=== PATIENT | female | born 1985 | race Caucasian/White ===

== ENCOUNTER 2019-05-22 04:40 | Inpatient (IN) | payer MEDICAID ==
[~2019-05-22] VITALS: Ht 167.6 cm; Wt 47.1 kg
[2019-05-22] MEDS ORDERED: ONDANSETRON 4 MG INJ IV STA (05:20)
[2019-05-22] MEDS ORDERED: morphine 4 MG/ML VIAL IV STA (05:20)
[2019-05-22] MEDS ORDERED: IOHEXOL 100 ML ONE (09:49)
[2019-05-22] MEDS ORDERED: SOD CHLORIDE 0.9% 100 ML ONE (09:49)
[2019-05-22] MEDS ORDERED: GABA300C16 PO (10:29)
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
[2019-05-22] MEDS ORDERED: LORAZEPAM 2 MG INJ IV ONE (12:30)
[2019-05-22] MEDS ORDERED: ONDANSETRON 4 MG INJ IV PRN ×2 (13:30→14:00)
[2019-05-22] MEDS ORDERED: ACETAMINOPHEN 325 MG TAB PO PRN (13:30)
--- NOTE | 2019-05-22 13:53 | HP ---
Date/Time of Note Date/Time of Note DATE: 05/22/19 TIME: 13:53 Assessment/Plan VTE Prophylaxis Pharmacological prophylaxis: NA/contraindicated Pharm contraindication: low risk/ambulating Lines/Catheters [facility] Saline Lock Assessment/Plan Hospital Course 33-year-old female with no significant past medical history who came to the emergency room with chief complaint of abdominal pain with imaging study suggesting superior mesenteric artery syndrome, who will be admitted to inpatient setting for further treatment and evaluation. 1. Abdominal pain. Abdominal imaging suggesting superior mesenteric artery syndrome with distention of the stomach and proximal duodenum with abrupt transition point at the second portion of the duodenum. N.p.o. NGT decompression. General surgery consult has been obtained. Start TPN as per general surgery recommendations. The patient to be taken to the OR in the next few days after NGT decompression. 2. Moderate protein calorie malnutrition. Start the patient on TPN after inserting a central line. Plan: The patient will be admitted to inpatient medical surgical floor. The patient will be kept n.p.o. The patient will be started on DVT prophylaxis. The patient will remain a full code. Activities will be as tolerated. The rest of the patient's management will be based on the clinical course, inputs from consultants, and the results of diagnostic studies. Based on the patient's clinical presentation, she most probably requires more than 2 midnights' stay for further management and evaluation of her clinical presentation. The patient was seen in collaboration with Dr. Albarran. The case was discussed with the surgeon. Result Diagram: 05/22/19 0509 05/22/19 0509 Results 24hrs Laboratory Tests Test 05/22/19 05:09 05/22/19 08:00 05/22/19 08:12 White Blood Count 7.7 Red Blood Count 4.75 Hemoglobin 13.7 Hematocrit 39.8 Mean Corpuscular Volume 83.8 Mean Corpuscular Hemoglobin 28.8 L Mean Corpuscular Hemoglobin Concent 34.4 Red Cell Distribution Width 12.4 Platelet Count 378 Mean Platelet Volume 9.9 Immature Granulocytes % 0.100 Neutrophils % 44.3 Lymphocytes % 37.5 Monocytes % 9.5 Eosinophils % 7.4 H Basophils % 1.2 Nucleated Red Blood Cells % 0.0 Immature Granulocytes # 0.010 Neutrophils # 3.4 Lymphocytes # 2.9 Monocytes # 0.7 Eosinophils # 0.6 H Basophils # 0.1 Nucleated Red Blood Cells # 0.0 Sodium Level 146 H Potassium Level 3.8 Chloride Level 105 Carbon Dioxide Level 27 Anion Gap 14 H Blood Urea Nitrogen 15 Creatinine 0.81 Est Glomerular Filtrat Rate mL/min > 60 Glucose Level 140 Calcium Level 10.1 Total Bilirubin 1.2 Direct Bilirubin 0.00 Indirect Bilirubin 1.2 H Aspartate Amino Transf (AST/SGOT) 25 Alanine Aminotransferase (ALT/SGPT) 20 Alkaline Phosphatase 76 Total Protein 8.7 H Albumin 5.0 H Globulin 3.70 H Albumin/Globulin Ratio 1.35 Lipase 331 H Urine Color YELLOW Urine Clarity CLOUDY A Urine pH 8.0 Urine Specific [place] 1.025 Urine Ketones TRACE A Urine Nitrite NEGATIVE Urine Bilirubin NEGATIVE Urine Urobilinogen NEGATIVE Urine Leukocyte Esterase NEGATIVE Urine Microscopic RBC 2 Urine Microscopic WBC 0 Urine Squamous Epithelial Cells FEW Urine Amorphous Crystals FEW A Urine Mucus MODERATE Urine Hemoglobin NEGATIVE Urine Glucose NEGATIVE Urine Total Protein 1+ H POC Beta HCG, Qualitative NEGATIVE HPI/ROS Admit Date/Time Admit Date/Time Hx of Present Illness Reason for admission: Abdominal pain. Imaging showing superior mesenteric a rtery syndrome. Consults 1. Branden Jansen MD, General Surgery. Patient is Cam[place]onian-speaking. A certified creative writing teacher was used for patient interview. ID number [id number] This is a 33-year-old female who denies any significant past medical history. The patient came to the emergency room with chief complaint of abdominal pain that woke her up from sleep. The patient tried taking activated carbon with minimal improvement. The patient vomited multiple times that was dark in color, probably secondary to activated carbon. The patient verbalized that she had a similar episode approximately 3 days ago that resolved on its own. The patient verbalized that she has been losing weight unintentionally over the past few weeks. She denied any diarrhea. She denied any hematemesis, melena, or hematochezia. She denied any chest pain or dyspnea. In the emergency room, the patient underwent a CT scan of the abdomen and pelvis that was showing marked distention of the stomach and proximal duodenum with abrupt transition point at the second portion of the duodenum, at the expected location of the superior mesenteric artery; findings suspicious for superior mesenteric artery syndrome. The patient consequently underwent an abdominal angiography that was showing evidence of superior mesenteric artery syndrome. General surgery consult was obtained by the ER physician. The patient was provided with the pain medications and IV fluids in the emergency room. ROS Constitutional: nausea, poor po, weight change Eyes: no complaints ENT: no complaints Respiratory: no complaints Cardiovascular: no complaints Gastrointestinal: pain, flatus Genitourinary: no complaints Musculoskeletal: no complaints Skin: no complaints Neurologic: no complaints Endocrine: no complaints Lymphatic: no complaints Psychological: no complaints Immunologic: no complaints PMH/Family/Social Past Medical History Medical History: no pertinent history Medications Current Medications Ondansetron HCl (Zofran Inj) 4 mg BRIDGE ORDER PRN IV NAUSEA/VOMITING; Start 05/22/19 at 13:30; Stop 05/23/19 at 13:29 Acetaminophen (Tylenol Tab) 650 mg ER BRIDGE PRN PO .MILD PAIN 1-3 OR TEMP; Start 05/22/19 at 13:30; Stop 05/23/19 at 13:29 Coded Allergies: No Known Allergy (Unverified , 05/22/19) Past Surgical History Past Surgical Hx: appendectomy Social History The patient is originally from [place]. Lives at home. Alcohol Use: none Smoking Status: Never smoker Drug Use: none Exam/Review of Systems Vital Signs Vitals Vital Signs Date Temp Pulse Resp B/P (MAP) Pulse Ox O2 O2 Flow FiO2 Time Delivery Rate 05/22/19 97.6 66 18 150/74 100 Room Air 12:30 (99) Exam Exam General: Thin 33 year-old female lying in bed in no apparent distress. HEENT: Normocephalic, atraumatic. Eyes: Anicteric sclerae, conjunctivae clear. ENT: Nasal septum midline, oral mucosa is dry. Neck supple, no JVD noticed. Respiratory: Bilaterally diminished breath sounds. No use of accessory muscles of respiration. No adventitious breath sounds. Cardiovascular: S1, S2 heard. Regular rate and rhythm. Abdomen: Diffuse tenderness. Right lower quadrant surgical scar. Genitourinary: Deferred. Extremities: No cyanosis, no clubbing, no edema. Peripheral pulses palpable. Neurologic: Cranial nerves II through XII grossly intact. The patient is awake, alert, and oriented. Skin: Normal skin turgor. No skin rashes. Additional Comments CT Angiography of the Abdomen and Pelvis with Contrast IMPRESSION: 1. Markedly distended stomach and proximal duodenum with transitional point at the third part of the duodenum. Considering reduced values of the aortomesenteric angle and aortomesenteric distance, superior mesenteric artery syndrome is in the differential diagnosis. 2. Severe narrowing of the left renal vein due to compression between superior mesenteric artery and aorta raising the possibility of nutcracker syndrome. 3. 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 LANIE HERNANDEZ NP May 22, 2019 13:53
[2019-05-22] MEDS ORDERED: NACL 0.9% 3 ML SYG IV SCH (14:00)
[2019-05-22] MEDS ORDERED: LIDOCAINE 1% (MPF) 5 ML VIAL SC ONE (14:30)
[2019-05-22 16:54] VITALS: BP 110/68; PULSE 61; RESP 18
[2019-05-22 17:03] VITALS: BMI 17.2
--- NOTE | 2019-05-22 17:40 | CONS ---
Assessment/Plan Assessment/Plan Problems: (1) SMAS (superior mesenteric artery syndrome) Status: Chronic Assessment/Plan (Daily) SMA syndrome. Needs NG decompression, TPN followed by duodeno-ileostomy. Timing of surgery depends on efficacy of decompression. Consultation Date/Type/Reason Admit Date/Time Date of Consultation: May 22, 2019 Type of Consult Surgical Reason for Consultation Suspected SMA syndrome. Date/Time of Note DATE: 05/22/19 TIME: 17:36 Hx of Present Illness 33-year-old female, otherwise healthy, started to experience lack of appetite and weight loss approximately 2 months ago. Denied nausea and vomiting at the time 5 days ago she developed abdominal discomfort and and vomiting. The vomiting brought temporary relief she was okay for 2 days after that, and then again yesterday started to throw up. Patient noticed approximately 8 pounds franny ght loss over the last 2 months. In the emergency room she underwent CT scan that showed hugely dilated stomach and duodenum down to third portion with transitional point. CT angiogram suspected compression of duodenum by the superior mesenteric artery. The angle was found to be 12 degree, when the normal one is more than 25 degree. Constitutional: improved, poor po, other Eyes: no complaints ENT: no complaints Respiratory: no complaints Cardiovascular: no complaints Gastrointestinal: decreased appetite, nausea, vomiting Genitourinary: no complaints Musculoskeletal: no complaints Skin: no complaints Neurologic: no complaints Endocrine: no complaints Lymphatic: no complaints Psychological: no complaints, nl mood/affect Immunologic: no complaints Past Medical History Medical History: no pertinent history Home Meds Reported Medications Gabapentin* (Gabapentin*) 300 Mg Capsule, 300 MG PO BID, #60 CAP 05/22/19 Medications Current Medications Ondansetron HCl (Zofran Inj) 4 mg BRIDGE ORDER PRN IV NAUSEA/VOMITING; Start 05/22/19 at 13:30; Stop 05/23/19 at 13:29 Acetaminophen (Tylenol Tab) 650 mg ER BRIDGE PRN PO .MILD PAIN 1-3 OR TEMP; Start 05/22/19 at 13:30; Stop 05/23/19 at 13:29 IV Flush (NS 3 ml) 3 ml PER PROTOCOL IV ; Start 05/22/19 at 14:00 Ondansetron HCl (Zofran Inj) 4 mg Q6H PRN IV NAUSEA/VOMITING; Start 05/22/19 at 14:00 Hydromorphone HCl (Dilaudid) 0.5 mg Q4H PRN IV .SEVERE PAIN 7-10; Start 05/22/19 at 14:00 Sodium Chloride 1,000 ml @ 125 mls/hr Q8H IV ; Start 05/22/19 at 14:00 Diagnostic Test (Pha) (Accu-Chek) 1 ea Q4 XX ; Start 05/22/19 at 17:00; Status UNV Total Parenteral Nutrition 1,000 ml @ 0 mls/hr Q0M IV ; Start 05/22/19 at 14:05; Status UNV Fat Emulsion Intravenous 250 ml @ 21 mls/hr DAILY IV ; Start 05/23/19 at 09:00; Status UNV Allergies: Coded Allergies: No Known Allergy (Unverified , 05/22/19) Past Surgical History Past Surgical Hx: appendectomy Social History Alcohol Use: none Smoking Status: Former smoker Drug Use: none Exam/Review of Systems Exam Vitals Vital Signs Date Temp Pulse Resp B/P (MAP) Pulse Ox O2 O2 Flow FiO2 Time Delivery Rate 05/22/19 98.7 61 18 110/68 100 Room Air 16:54 (82) Constitutional: alert, oriented, well developed Psych: no complaints, nl mood/affect Head: normocephalic, atraumatic Eyes: nl conjunctiva, EOMI, nl lids, nl sclera, PERRL ENMT: nl external ears & nose, nl lips & teeth, nl nasal mucosa & septum Neck: supple, non-tender Respiratory: clear to auscultation, normal air movement Cardiovascular: regular rate and rhythm, nl pulses Gastrointestinal: soft, nl liver, spleen, non-tender Musculoskeletal: nl extremities to inspection, nl gait and stance Extremities: normal pulses Neurological: SR. DIRECTOR II-XII intact, nl mental status, nl speech, nl strength Skin: nl turgor; No rash or lesions Lymph: nl lymph nodes Results Result Diagram: 05/22/19 0509 05/22/19 0509 Results 24hrs Laboratory Tests Test 05/22/19 05:09 05/22/19 08:00 05/22/19 08:12 05/22/19 14:34 White Blood Count 7.7 Red Blood Count 4.75 Hemoglobin 13.7 Hematocrit 39.8 Mean Corpuscular Volume 83.8 Mean Corpuscular 28.8 L Hemoglobin Mean Corpuscular 34.4 Hemoglobin Concent Red Cell Distribution 12.4 Width Platelet Count 378 Mean Platelet Volume 9.9 Immature Granulocytes % 0.100 Neutrophils % 44.3 Lymphocytes % 37.5 Monocytes % 9.5 Eosinophils % 7.4 H Basophils % 1.2 Nucleated Red Blood 0.0 Cells % Immature Granulocytes # 0.010 Neutrophils # 3.4 Lymphocytes # 2.9 Monocytes # 0.7 Eosinophils # 0.6 H Basophils # 0.1 Nucleated Red Blood 0.0 Cells # Sodium Level 146 H Potassium Level 3.8 Chloride Level 105 Carbon Dioxide Level 27 Anion Gap 14 H Blood Urea Nitrogen 15 Creatinine 0.81 Est Glomerular Filtrat > 60 Rate mL/min Glucose Level 140 Calcium Level 10.1 Total Bilirubin 1.2 Direct Bilirubin 0.00 Indirect Bilirubin 1.2 H Aspartate Amino 25 Transf (AST/SGOT) Alanine 20 Aminotransferase (ALT/SG PT) Alkaline Phosphatase 76 Total Protein 8.7 H Albumin 5.0 H Globulin 3.70 H Albumin/Globulin Ratio 1.35 Lipase 331 H Urine Color YELLOW Urine Clarity CLOUDY A Urine pH 8.0 Urine Specific [place] 1.025 Urine Ketones TRACE A Urine Nitrite NEGATIVE Urine Bilirubin NEGATIVE Urine Urobilinogen NEGATIVE Urine Leukocyte Esterase NEGATIVE Urine Microscopic RBC 2 Urine Microscopic WBC 0 Urine Squamous FEW Epithelial Cells Urine Amorphous Crystals FEW A Urine Mucus MODERATE Urine Hemoglobin NEGATIVE Urine Glucose NEGATIVE Urine Total Protein 1+ H Urine Opiates Screen Positive Urine Barbiturates Negative Urine Amphetamines Positive Screen Urine Benzodiazepines Negative Screen Urine Cocaine Screen Negative Urine Cannabinoids Negative POC Beta HCG, NEGATIVE Qualitative Prothrombin Time 13.1 Prothrombin Time Ratio 1.0 INR International 0.98 Normalized Ratio Activated 26.0 Partial Thromboplast Time Hemoglobin A1c 5.0 Prealbumin 20.0 Triglycerides Level 73 Thyroid Stimulating 0.620 Hormone (TSH) Free Thyroxine 1.79 Medications Medication Current Medications Ondansetron HCl (Zofran Inj) 4 mg BRIDGE ORDER PRN IV NAUSEA/VOMITING; Start 05/22/19 at 13:30; Stop 05/23/19 at 13:29 Acetaminophen (Tylenol Tab) 650 mg ER BRIDGE PRN PO .MILD PAIN 1-3 OR TEMP; Start 05/22/19 at 13:30; Stop 05/23/19 at 13:29 IV Flush (NS 3 ml) 3 ml PER PROTOCOL IV ; Start 05/22/19 at 14:00 Ondansetron HCl (Zofran Inj) 4 mg Q6H PRN IV NAUSEA/VOMITING; Start 05/22/19 at 14:00 Hydromorphone HCl (Dilaudid) 0.5 mg Q4H PRN IV .SEVERE PAIN 7-10; Start 05/22/19 at 14:00 Sodium Chloride 1,000 ml @ 125 mls/hr Q8H IV ; Start 05/22/19 at 14:00 Diagnostic Test (Pha) (Accu-Chek) 1 ea Q4 XX ; Start 05/22/19 at 17:00; Status UNV Total Parenteral Nutrition 1,000 ml @ 0 mls/hr Q0M IV ; Start 05/22/19 at 14:05; Status UNV Fat Emulsion Intravenous 250 ml @ 21 mls/hr DAILY IV ; Start 05/23/19 at 09:00; Status UNV ELLYN BURGESS MD May 22, 2019 17:39
[2019-05-22] MEDS: SOD CHLORIDE 0.9% 1,000 ML IV SCH ×2 (17:41→22:00)
[2019-05-22 20:00] VITALS: BP 98/54; PULSE 66; RESP 18
[2019-05-23] MEDS ORDERED: LORAZEPAM 2 MG INJ IV ONE (01:00)
[2019-05-23] MEDS: SOD CHLORIDE 0.9% 1,000 ML IV SCH ×2 (01:46→12:04)
[2019-05-23 02:52] VITALS: BP 119/61; PULSE 68; RESP 18
[2019-05-23 07:15] VITALS: BP 107/56; PULSE 62; RESP 16
[2019-05-23] MEDS ORDERED: FAT EMULSION 20% 250 ML IV SCH (09:00)
--- NOTE | 2019-05-23 10:45 | PN ---
Date/Time of Note Date/Time of Note DATE: 05/23/19 TIME: 10:42 Assessment/Plan VTE Prophylaxis Risk score (from Nsg)>0 risk: 3 SCD applied (from Nsg): Yes Pharmacological prophylaxis: NA/contraindicated Pharm contraindication: low risk/ambulating Lines/Catheters IV Catheter Type (from Nrsg): Peripheral IV Urinary Cath still in place: No Assessment/Plan Hospital Course SUBJECTIVE: Remains on NGT decompression. Status post PICC line placement today. Complains of minimal abdominal discomfort. OBJECTIVE: Physical Exam General: Thin 33 year-old female lying in bed in no apparent distress. HEENT: Normocephalic, atraumatic. Eyes: Anicteric sclerae, conjunctivae clear. ENT: Nasal septum midline, oral mucosa is dry. Neck supple, no JVD noticed. Respiratory: Bilaterally diminished breath sounds. No use of accessory muscles of respiration. No adventitious breath sounds. Cardiovascular: S1, S2 heard. Regular rate and rhythm. Abdomen: Soft and nondistended.. Right lower quadrant surgical scar. Genitourinary: Deferred. Extremities: No cyanosis, no clubbing, no edema. Peripheral pulses palpable. Neurologic: Cranial nerves II through XII grossly intact. The patient is awake, alert, and oriented. Skin: Normal skin turgor. No skin rashes. 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 1. Abdominal pain. Abdominal imaging suggesting superior mesenteric artery syndrome with distention of the stomach and proximal duodenum with abrupt transition point at the second portion of the duodenum. N.p.o. NGT decompression. General surgery consult has been obtained. Start TPN as per general surgery recommendations. The patient to be taken to the OR in the next few days after NGT decompression. 2. Moderate protein calorie malnutrition. Start the patient on TPN after inserting a central line. 3. Fluids, electrolytes, and nutrition. TPN. DC IV fluids when started on TPN. 4. DVT prophylaxis. Bilateral SCDs. 5. Plan. Continue pain control. Continue NGT decompression. Await further surgical recommendations. The patient was seen in collaboration with Dr. Albarran. Result Diagram: 05/23/19 0533 05/23/19 0533 Results 24hrs Laboratory Tests Test 05/22/19 14:34 05/23/19 05:33 Prothrombin Time 13.1 13.9 Prothrombin Time Ratio 1.0 1.1 INR International Normalized Ratio 0.98 1.06 Activated Partial Thromboplast Time 26.0 28.7 Hemoglobin A1c 5.0 Prealbumin 20.0 Triglycerides Level 73 Thyroid Stimulating Hormone (TSH) 0.620 Free Thyroxine 1.79 White Blood Count 8.7 Red Blood Count 3.80 L Hemoglobin 10.9 #L Hematocrit 32.6 L Mean Corpuscular Volume 85.8 Mean Corpuscular Hemoglobin 28.7 L Mean Corpuscular Hemoglobin Concent 33.4 Red Cell Distribution Width 12.7 Platelet Count 257 # Mean Platelet Volume 10.0 Immature Granulocytes % 0.200 Neutrophils % 49.2 Lymphocytes % 36.5 Monocytes % 7.2 Eosinophils % 6.3 Basophils % 0.6 Nucleated Red Blood Cells % 0.0 Immature Granulocytes # 0.020 Neutrophils # 4.3 Lymphocytes # 3.2 H Monocytes # 0.6 Eosinophils # 0.6 H Basophils # 0.1 Nucleated Red Blood Cells # 0.0 Sodium Level 143 Potassium Level 3.9 Chloride Level 112 H Carbon Dioxide Level 24 Anion Gap 7 Blood Urea Nitrogen 9 Creatinine 0.69 Est Glomerular Filtrat Rate mL/min > 60 Glucose Level 87 # Calcium Level 8.1 L Phosphorus Level 3.9 Magnesium Level 2.2 Total Bilirubin 2.0 H Direct Bilirubin 0.00 Indirect Bilirubin 2.0 H Aspartate Amino Transf (AST/SGOT) 18 Alanine Aminotransferase (ALT/SGPT) 19 Alkaline Phosphatase 42 Total Protein 6.2 # Albumin 3.4 # Globulin 2.80 Albumin/Globulin Ratio 1.21 Amylase Level 62 Lipase 83 Exam/Review of Systems Exam Vitals Vital Signs Date Temp Pulse Resp B/P (MAP) Pulse Ox O2 O2 Flow FiO2 Time Delivery Rate 05/23/19 97.7 62 16 107/56 98 Room Air 07:15 (73) Intake and Output 05/22/19 05/22/19 05/23/19 1414:59 22:59 06:59 IntakeIntake Total 125 ml 1375 ml BalanceBalance 125 ml 1375 ml Results Results 24hrs Laboratory Tests Test 05/22/19 14:34 05/23/19 05:33 Prothrombin Time 13.1 13.9 Prothrombin Time Ratio 1.0 1.1 INR International Normalized Ratio 0.98 1.06 Activated Partial Thromboplast Time 26.0 28.7 Hemoglobin A1c 5.0 Prealbumin 20.0 Triglycerides Level 73 Thyroid Stimulating Hormone (TSH) 0.620 Free Thyroxine 1.79 White Blood Count 8.7 Red Blood Count 3.80 L Hemoglobin 10.9 #L Hematocrit 32.6 L Mean Corpuscular Volume 85.8 Mean Corpuscular Hemoglobin 28.7 L Mean Corpuscular Hemoglobin Concent 33.4 Red Cell Distribution Width 12.7 Platelet Count 257 # Mean Platelet Volume 10.0 Immature Granulocytes % 0.200 Neutrophils % 49.2 Lymphocytes % 36.5 Monocytes % 7.2 Eosinophils % 6.3 Basophils % 0.6 Nucleated Red Blood Cells % 0.0 Immature Granulocytes # 0.020 Neutrophils # 4.3 Lymphocytes # 3.2 H Monocytes # 0.6 Eosinophils # 0.6 H Basophils # 0.1 Nucleated Red Blood Cells # 0.0 Sodium Level 143 Potassium Level 3.9 Chloride Level 112 H Carbon Dioxide Level 24 Anion Gap 7 Blood Urea Nitrogen 9 Creatinine 0.69 Est Glomerular Filtrat Rate mL/min > 60 Glucose Level 87 # Calcium Level 8.1 L Phosphorus Level 3.9 Magnesium Level 2.2 Total Bilirubin 2.0 H Direct Bilirubin 0.00 Indirect Bilirubin 2.0 H Aspartate Amino Transf (AST/SGOT) 18 Alanine Aminotransferase (ALT/SGPT) 19 Alkaline Phosphatase 42 Total Protein 6.2 # Albumin 3.4 # Globulin 2.80 Albumin/Globulin Ratio 1.21 Amylase Level 62 Lipase 83 Medications Medication Current Medications IV Flush (NS 3 ml) 3 ml PER PROTOCOL IV ; Start 05/22/19 at 14:00 Ondansetron HCl (Zofran Inj) 4 mg Q6H PRN IV NAUSEA/VOMITING; Start 05/22/19 at 14:00 Hydromorphone HCl (Dilaudid) 0.5 mg Q4H PRN IV .SEVERE PAIN 7-10; Start 05/22/19 at 14:00 Sodium Chloride 1,000 ml @ 125 mls/hr Q8H IV Last administered on 05/23/19at 01:46; Admin Dose 125 MLS/HR; Start 05/22/19 at 14:00 Diagnostic Test (Pha) (Accu-Chek) 1 ea Q4 XX ; Start 05/22/19 at 17:00; Status UNV Total Parenteral Nutrition 1,000 ml @ 0 mls/hr Q0M IV ; Start 05/22/19 at 14:05; Status UNV Fat Emulsion Intravenous 250 ml @ 21 mls/hr DAILY IV ; Start 05/23/19 at 09:00; Status UNV LANIE HERNANDEZ NP May 23, 2019 10:45
[2019-05-23] MEDS ORDERED: [UNRECOGNIZED DRUG - REMARK] (13:31)
[2019-05-23 16:00] VITALS: BP 108/57; PULSE 66; RESP 16
--- NOTE | 2019-05-23 16:57 | PN ---
Date/Time of Note Date/Time of Note DATE: 05/23/19 TIME: 16:55 Assessment/Plan Lines/Catheters IV Catheter Type (from [facility]): Peripheral IV Nunez in Place (from [facility]): No Assessment/Plan Problems: (1) SMAS (superior mesenteric artery syndrome) Status: Chronic Assessment/Plan My initial plan to take the patient for surgery tomorrow has been changed. After reviewing the films I decided that the patient needs few more days of nasogastric decompression. His stomach significantly distended as well as duodenum still. I will plan the surgery on Wednesday morning. We will continue TPN and NG suction. Subjective 24 Hr Interval Summary Patient is doing well subjectively. NG tube drained 300 cc overnight bilious. Constitutional: no complaints Feeding: NPO Exam/Review of Systems Vital Signs Vitals Vital Signs Date Temp Pulse Resp B/P (MAP) Pulse Ox O2 O2 Flow FiO2 Time Delivery Rate 05/23/19 98.2 66 16 108/57 96 Room Air 16:00 (74) Intake and Output 05/22/19 05/22/19 05/23/19 1515:00 23:00 07:00 IntakeIntake Total 125 ml 1375 ml BalanceBalance 125 ml 1375 ml Exam Constitutional: alert, oriented, well developed Psych: no complaints, nl mood/affect Head: normocephalic, atraumatic Eyes: nl conjunctiva, EOMI, nl lids, nl sclera ENMT: nl external ears & nose, nl lips & teeth, nl nasal mucosa & septum, mucosa pink and moist Neck: supple, non-tender Respiratory: clear to auscultation, normal air movement Cardiovascular: regular rate and rhythm, nl pulses Gastrointestinal: soft, nl liver, spleen, non-tender Musculoskeletal: nl extremities to inspection, nl gait and stance Extremities: normal pulses 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
[2019-05-23] MEDS: ACCU-CHEK XX SCH ×2 (17:00→20:49)
[2019-05-23] MEDS: TPN 1,000 ML IV SCH (17:56)
[2019-05-23 20:07] VITALS: BP 117/74; PULSE 65; RESP 18
[2019-05-23] MEDS: HYDROmorphONE 0.5 MG/0.5 ML SYG IV PRN (20:44)
[2019-05-23] MEDS ORDERED: ALPRAZOLAM 0.5 MG TAB PO SCH (22:00)
[2019-05-24] MEDS: ACCU-CHEK XX SCH ×6 (01:22→21:48)
[2019-05-24 02:00] VITALS: BP 94/51; PULSE 49; RESP 19
[2019-05-24] MEDS ORDERED: GLUCOSE GEL 15 GRAM TUBE PO PRN ×2 (02:30)
[2019-05-24] MEDS ORDERED: GLUCOSE GEL 15 GRAM TUBE BUCCAL PRN (02:30)
[2019-05-24] MEDS ORDERED: GLUCAGON 1 MG INJ IM PRN (02:30)
[2019-05-24] MEDS ORDERED: DEXTROSE 50% 50 ML SYRINGE IV PRN ×2 (02:30)
[2019-05-24] MEDS: INSULIN ASPART [NOVOLOG] 3 ML PEN SC SCH ×5 (05:00→21:00)
[2019-05-24] MEDS: TPN 1,000 ML IV SCH ×2 (05:36→21:00)
[2019-05-24 08:00] VITALS: BP 108/72; PULSE 51; RESP 14
[2019-05-24 14:00] VITALS: BP 114/63; PULSE 75; RESP 14
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
--- NOTE | 2019-05-24 18:30 | PN ---
Date/Time of Note Date/Time of Note DATE: 05/24/19 TIME: 18:26 Assessment/Plan VTE Prophylaxis Risk score (from Ns)>0 risk: 2 [place] [facility] SCD contraindicated: low risk/ambulating Pharmacological prophylaxis: NA/contraindicated Pharm contraindication: surgical contra Lines/Catheters IV [facility] Type (from [facility] PICC Line Central line still needed: Yes Urinary Cath still in place: No Assessment/Plan Hospital Course Hospitalist Coverage Assessment and plan 1. Superior Mesenteric Artery Syndrome. 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 For expl lap- duodeno-ileostomy on Wednesday. Npo, low periop risk. May proceed forward from medical standpoint. 2. Past tobacco 3. Substance: Meth use 4. H/o appy 5. MDD vs PSTD vs Ac stress/ grief dz. 6. Anemia S: no pain/ n/ v/ fever O: vss PE no pallor; ng c/d/i reg ctab bs + nt nd no r r g; no bruits no edema Result Diagram: 05/24/19 0534 05/24/19 0534 Results 24hrs Laboratory Tests Test 05/23/19 18:53 05/23/19 20:42 05/24/19 01:17 05/24/19 05:34 Bedside Glucose 88 106 106 White Blood Count 8.1 Red Blood Count 3.51 L Hemoglobin 10.2 L Hematocrit 29.8 L Mean Corpuscular Volume 84.9 Mean Corpuscular 29.1 Hemoglobin Mean Corpuscular 34.2 Hemoglobin Concent Red Cell Distribution 12.3 Width Platelet Count 215 Mean Platelet Volume 10.3 Immature Granulocytes % 0.200 Neutrophils % 49.2 Lymphocytes % 36.9 Monocytes % 6.8 Eosinophils % 6.0 Basophils % 0.9 Nucleated Red Blood 0.0 Cells % Immature Granulocytes # 0.020 Neutrophils # 4.0 Lymphocytes # 3.0 H Monocytes # 0.6 Eosinophils # 0.5 Basophils # 0.1 Nucleated Red Blood 0.0 Cells # Sodium Level 139 Potassium Level 3.9 Chloride Level 108 Carbon Dioxide Level 26 Anion Gap 5 Blood Urea Nitrogen 12 Creatinine 0.51 Est Glomerular Filtrat > 60 Rate mL/min Glucose Level 113 Calcium Level 7.9 L Phosphorus Level 3.2 Magnesium Level 2.0 Total Bilirubin 2.2 H Direct Bilirubin 0.00 Indirect Bilirubin 2.2 H Aspartate Amino 20 Transf (AST/SGOT) Alanine 20 Aminotransferase (ALT/SG PT) Alkaline Phosphatase 33 L Total Protein 6.1 Albumin 3.1 L Globulin 3.00 Albumin/Globulin Ratio 1.03 Test 05/24/19 05:35 05/24/19 09:07 05/24/19 14:06 05/24/19 17:19 Bedside Glucose 97 118 108 93 Exam/Review of Systems Exam Vitals Vital Signs Date Temp Pulse Resp B/P (MAP) Pulse Ox O2 O2 Flow FiO2 Time Delivery Rate 05/24/19 97.8 75 14 114/63 99 14:00 (80) 05/23/19 Room Air 16:00 Intake and Output 05/23/19 05/23/19 05/24/19 1515:00 23:00 07:00 IntakeIntake Total 625 ml 500 ml 870 ml OutputOutput Total 100 ml BalanceBalance 625 ml 500 ml 770 ml Results Results 24hrs Laboratory Tests Test 05/23/19 18:53 05/23/19 20:42 05/24/19 01:17 05/24/19 05:34 Bedside Glucose 88 106 106 White Blood Count 8.1 Red Blood Count 3.51 L Hemoglobin 10.2 L Hematocrit 29.8 L Mean Corpuscular Volume 84.9 Mean Corpuscular 29.1 Hemoglobin Mean Corpuscular 34.2 Hemoglobin Concent Red Cell Distribution 12.3 Width Platelet Count 215 Mean Platelet Volume 10.3 Immature Granulocytes % 0.200 Neutrophils % 49.2 Lymphocytes % 36.9 Monocytes % 6.8 Eosinophils % 6.0 Basophils % 0.9 Nucleated Red Blood 0.0 Cells % Immature Granulocytes # 0.020 Neutrophils # 4.0 Lymphocytes # 3.0 H Monocytes # 0.6 Eosinophils # 0.5 Basophils # 0.1 Nucleated Red Blood 0.0 Cells # Sodium Level 139 Potassium Level 3.9 Chloride Level 108 Carbon Dioxide Level 26 Anion Gap 5 Blood Urea Nitrogen 12 Creatinine 0.51 Est Glomerular Filtrat > 60 Rate mL/min Glucose Level 113 Calcium Level 7.9 L Phosphorus Level 3.2 Magnesium Level 2.0 Total Bilirubin 2.2 H Direct Bilirubin 0.00 Indirect Bilirubin 2.2 H Aspartate Amino 20 Transf (AST/SGOT) Alanine 20 Aminotransferase (ALT/SG PT) Alkaline Phosphatase 33 L Total Protein 6.1 Albumin 3.1 L Globulin 3.00 Albumin/Globulin Ratio 1.03 Test 05/24/19 05:35 05/24/19 09:07 05/24/19 14:06 05/24/19 17:19 Bedside Glucose 97 118 108 93 Medications Medication Current Medications IV Flush (NS 3 ml) 3 ml PER PROTOCOL IV ; Start 05/22/19 at 14:00 Ondansetron HCl (Zofran Inj) 4 mg Q6H PRN IV NAUSEA/VOMITING; Start 05/22/19 at 14:00 Hydromorphone HCl (Dilaudid) 0.5 mg Q4H PRN IV .SEVERE PAIN 7-10 Last administered on 05/23/19at 20:44; Admin Dose 0.5 MG; Start 05/22/19 at 14:00 Diagnostic Test (Pha) (Accu-Chek) 1 ea Q4 XX Last administered on 05/24/19at 05:36; Admin Dose 1 EA; Start 05/23/19 at 17:00 Total Parenteral Nutrition 1,000 ml @ 70 mls/hr [id number] IV Last administered on 05/24/19at 05:36; Admin Dose 70 MLS/HR; Start 05/23/19 at 16:00 IV Flush (NS 10 ml) 10 ml PRN PRN IV IV PROTOCOL; Start 05/23/19 at 11:00 Insulin Aspart (Novolog Insulin Pen) NOVOLOG *MILD* ALGORI... Q4 SC ; Start 05/24/19 at 05:00 Miscellaneous Information 1 ea NOTE XX ; Start 05/24/19 at 02:30 Glucose (Glutose) 15 gm Q15M PRN PO DECREASED GLUCOSE; Start 05/24/19 at 02:30 Glucose (Glutose) 22.5 gm Q15M PRN PO DECREASED GLUCOSE; Start 05/24/19 at 02:30 Dextrose (D50w Syringe) 25 ml Q15M PRN IV DECREASED GLUCOSE; Start 05/24/19 at 02:30 Dextrose (D50w Syringe) 50 ml Q15M PRN IV DECREASED GLUCOSE; Start 05/24/19 at 02:30 Glucagon (Glucagen) 1 mg Q15M PRN IM DECREASED GLUCOSE; Start 05/24/19 at 02:30 Glucose (Glutose) 15 gm Q15M PRN BUCCAL DECREASED GLUCOSE; Start 05/24/19 at 02:30 Duloxetine HCl (Cymbalta) 20 mg DAILY PO ; Start 05/25/19 at 09:00 TAVIA BRANCH MD May 24, 2019 18:30
[2019-05-24] MEDS: FAMOTIDINE 20 MG INJ IV SCH (19:19)
[2019-05-24 20:44] VITALS: BP 110/70; PULSE 67; RESP 18
[2019-05-25 02:19] VITALS: BP 113/72; PULSE 63; RESP 18
[2019-05-25] MEDS: HYDROmorphONE 0.5 MG/0.5 ML SYG IV PRN (02:50)
[2019-05-25] MEDS: INSULIN ASPART [NOVOLOG] 3 ML PEN SC SCH ×3 (05:55→17:04)
[2019-05-25] MEDS: ACCU-CHEK XX SCH ×3 (05:55→17:05)
[2019-05-25 07:53] VITALS: BP 96/58; PULSE 51; RESP 18
[2019-05-25] MEDS: DULOXETINE 20 MG CAP DR PO SCH ×2 (09:00→12:29)
[2019-05-25] MEDS: ENOXAPARIN 40 MG/0.4 ML SYG SC SCH (09:18)
[2019-05-25] MEDS: FAMOTIDINE 20 MG INJ IV SCH (09:18)
[2019-05-25 09:27] VITALS: Ht 167.6 cm; Wt 47.1 kg
[2019-05-25] MEDS: TPN 1,000 ML IV SCH (11:17)
[2019-05-25 14:00] VITALS: BP 96/50; PULSE 56; RESP 18
--- NOTE | 2019-05-25 14:57 | PN ---
Date/Time of Note Date/Time of Note DATE: 05/25/19 TIME: 14:56 Assessment/Plan VTE Prophylaxis Risk score (from Nsg)>0 risk: 1 SCD applied (from Nsg): Yes SCD contraindicated: low risk/ambulating Pharmacological prophylaxis: LMWH Lines/Catheters IV Catheter Type (from Nrsg): PICC Line Central line still needed: Yes Urinary Cath still in place: No Assessment/Plan Hospital Course Hospitalist Coverage Assessment and plan 1. Superior Mesenteric Artery Syndrome. 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 For expl lap- duodeno-ileostomy on Wednesday. Npo, low periop risk. May proceed forward from medical standpoint. 2. Past tobacco 3. Substance: Meth use 4. H/o appy 5. MDD vs PSTD vs Ac stress/ grief dz. 6. Anemia S: 05/24 no pain/ n/ v/ fever 05/25 depressed. O: vss PE no pallor; ng c/d/i reg ctab bs + nt nd no r r g; no bruits no edema Result Diagram: 05/24/19 0534 05/25/19 0433 Results 24hrs Laboratory Tests Test 05/24/19 17:19 05/24/19 21:27 05/24/19 22:30 05/25/19 04:33 Bedside Glucose 93 65 L 160 Sodium Level 143 Potassium Level 3.8 Chloride Level 107 Carbon Dioxide Level 28 Anion Gap 8 Blood Urea Nitrogen 12 Creatinine 0.67 Est Glomerular Filtrat > 60 Rate mL/min Glucose Level 105 Calcium Level 8.4 Phosphorus Level 4.0 Magnesium Level 2.0 Test 05/25/19 05:52 05/25/19 12:26 Bedside Glucose 116 114 Exam/Review of Systems Exam Vitals Vital Signs Date Temp Pulse Resp B/P (MAP) Pulse Ox O2 O2 Flow FiO2 Time Delivery Rate 05/25/19 98.3 56 18 96/50 (65) 100 Room Air 14:00 Intake and Output 05/24/19 05/24/19 05/25/19 1515:00 23:00 07:00 IntakeIntake Total 840 ml 630 ml OutputOutput Total 100 ml BalanceBalance 840 ml 530 ml Results Results 24hrs Laboratory Tests Test 05/24/19 17:19 05/24/19 21:27 05/24/19 22:30 05/25/19 04:33 Bedside Glucose 93 65 L 160 Sodium Level 143 Potassium Level 3.8 Chloride Level 107 Carbon Dioxide Level 28 Anion Gap 8 Blood Urea Nitrogen 12 Creatinine 0.67 Est Glomerular Filtrat > 60 Rate mL/min Glucose Level 105 Calcium Level 8.4 Phosphorus Level 4.0 Magnesium Level 2.0 Test 05/25/19 05:52 05/25/19 12:26 Bedside Glucose 116 114 Medications Medication Current Medications IV Flush (NS 3 ml) 3 ml PER PROTOCOL IV ; Start 05/22/19 at 14:00 Ondansetron HCl (Zofran Inj) 4 mg Q6H PRN IV NAUSEA/VOMITING; Start 05/22/19 at 14:00 Hydromorphone HCl (Dilaudid) 0.5 mg Q4H PRN IV .SEVERE PAIN 7-10 Last administered on 05/25/19at 02:50; Admin Dose 0.5 MG; Start 05/22/19 at 14:00 Total Parenteral Nutrition 1,000 ml @ 70 mls/hr [id number] IV Last administered on 05/25/19at 11:17; Admin Dose 70 MLS/HR; Start 05/23/19 at 16:00 IV Flush (NS 10 ml) 10 ml PRN PRN IV IV PROTOCOL; Start 05/23/19 at 11:00 Miscellaneous Information 1 ea NOTE XX ; Start 05/24/19 at 02:30 Glucose (Glutose) 15 gm Q15M PRN PO DECREASED GLUCOSE; Start 05/24/19 at 02:30 Glucose (Glutose) 22.5 gm Q15M PRN PO DECREASED GLUCOSE; Start 05/24/19 at 02:30 Dextrose (D50w Syringe) 25 ml Q15M PRN IV DECREASED GLUCOSE Last administered on 05/24/19at 22:08; Admin Dose 25 ML; Start 05/24/19 at 02:30 Dextrose (D50w Syringe) 50 ml Q15M PRN IV DECREASED GLUCOSE; Start 05/24/19 at 02:30 Glucagon (Glucagen) 1 mg Q15M PRN IM DECREASED GLUCOSE; Start 05/24/19 at 02:30 Glucose (Glutose) 15 gm Q15M PRN BUCCAL DECREASED GLUCOSE; Start 05/24/19 at 02:30 Duloxetine HCl (Cymbalta) 20 mg DAILY PO Last administered on 05/25/19at 12:29; Admin Dose 20 MG; Start 05/25/19 at 09:00 Famotidine (Pepcid Iv) 20 mg DAILY IV Last administered on 05/25/19at 09:18; Admin Dose 20 MG; Start 05/24/19 at 18:30 Enoxaparin Sodium (Lovenox) 40 mg DAILY SC Last administered on 05/25/19at 09:18; Admin Dose 40 MG; Start 05/25/19 at 09:00 Insulin Aspart (Novolog Insulin Pen) NOVOLOG *MILD* ALGORI... Q6 SC ; Start 05/25/19 at 06:00 Diagnostic Test (Pha) (Accu-Chek) 1 ea Q6 XX Last administered on 05/25/19at 12:27; Admin Dose 1 EA; Start 05/25/19 at 06:00 TAVIA BRANCH MD May 25, 2019 14:57
[2019-05-25 19:51] VITALS: BP 121/76; PULSE 62; RESP 20
[2019-05-26] VITALS (16 sets, daily range): BP systolic 86–149; BP diastolic 53–89; PULSE 52–92; RESP 11–24
[2019-05-26] MEDS: HYDROmorphONE 0.5 MG/0.5 ML SYG IV PRN ×3 (02:03→20:20)
[2019-05-26] MEDS: TPN 1,000 ML IV SCH ×2 (02:53→20:23)
[2019-05-26] MEDS: INSULIN ASPART [NOVOLOG] 3 ML PEN SC SCH ×5 (06:00→23:05)
[2019-05-26] MEDS: ACCU-CHEK XX SCH ×5 (06:00→23:13)
[2019-05-26] MEDS: FAMOTIDINE 20 MG TAB PO SCH (08:54)
[2019-05-26] MEDS: DULOXETINE 20 MG CAP DR PO SCH (08:54)
[2019-05-26] MEDS: ENOXAPARIN 40 MG/0.4 ML SYG SC SCH (09:00)
--- NOTE | 2019-05-26 09:12 | PREAC ---
Date/Time of Note Date/Time of Note DATE: 05/26/19 TIME: 09:10 Anesthesia Eval and Record Evaluation Time Pre-Procedure Interview DATE: 05/26/19 TIME: 09:10 Age 33 Sex female NPO: 8 hrs Preoperative diagnosis superior mesenteric artery syndrome Planned procedure duodeno-ileostomy. Past Medical History Past Medical History: Includes Psych: Depression, Anxiety Recreational drugs: Other (amphetamines) Surgery & Anesthesia Issues No known issue Meds Anticoagulation: No Beta Daiana within 24 hr: No Reason Beta Daiana not given: Pt. not on B-Daiana Active Scripts [Excuse from Court] No Conflict Check This is to certify that this patient is hospitalized at [facility] since 05/22/2019. Kindly excuse her from any legal obligations since she is not in a condition to be discharged from the hospital in the next few days. Prov:LANIE HERNANDEZ SENIOR RECEPTIONIST 05/23/19 Reported Medications Gabapentin* (Gabapentin*) 300 Mg Capsule, 300 MG PO BID, #60 CAP 05/22/19 Current Medications IV Flush (NS 3 ml) 3 ml PER PROTOCOL IV ; Start 05/22/19 at 14:00 Ondansetron HCl (Zofran Inj) 4 mg Q6H PRN IV NAUSEA/VOMITING; Start 05/22/19 at 14:00 Hydromorphone HCl (Dilaudid) 0.5 mg Q4H PRN IV .SEVERE PAIN 7-10 Last administered on 05/26/19at 06:08; Admin Dose 0.5 MG; Start 05/22/19 at 14:00 Total Parenteral Nutrition 1,000 ml @ 70 mls/hr [id number] IV Last administered on 05/26/19at 02:53; Admin Dose 70 MLS/HR; Start 05/23/19 at 16:00 IV Flush (NS 10 ml) 10 ml PRN PRN IV IV PROTOCOL; Start 05/23/19 at 11:00 Miscellaneous Information 1 ea NOTE XX ; Start 05/24/19 at 02:30 Glucose (Glutose) 15 gm Q15M PRN PO DECREASED GLUCOSE; Start 05/24/19 at 02:30 Glucose (Glutose) 22.5 gm Q15M PRN PO DECREASED GLUCOSE; Start 05/24/19 at 02:30 Dextrose (D50w Syringe) 25 ml Q15M PRN IV DECREASED GLUCOSE Last administered on 05/24/19at 22:08; Admin Dose 25 ML; Start 05/24/19 at 02:30 Dextrose (D50w Syringe) 50 ml Q15M PRN IV DECREASED GLUCOSE; Start 05/24/19 at 02:30 Glucagon (Glucagen) 1 mg Q15M PRN IM DECREASED GLUCOSE; Start 05/24/19 at 02:30 Glucose (Glutose) 15 gm Q15M PRN BUCCAL DECREASED GLUCOSE; Start 05/24/19 at 02:30 Duloxetine HCl (Cymbalta) 20 mg DAILY PO Last administered on 05/25/19at 12:29; Admin Dose 20 MG; Start 05/25/19 at 09:00 Enoxaparin Sodium (Lovenox) 40 mg DAILY SC Last administered on 05/25/19at 09:18; Admin Dose 40 MG; Start 05/25/19 at 09:00 Insulin Aspart (Novolog Insulin Pen) NOVOLOG *MILD* ALGORI... Q6 SC ; Start 05/25/19 at 06:00 Diagnostic Test (Pha) (Accu-Chek) 1 ea Q6 XX Last administered on 05/25/19at 12:27; Admin Dose 1 EA; Start 05/25/19 at 06:00 Famotidine (Pepcid) 20 mg DAILY PO ; Start 05/26/19 at 09:00 Meds reviewed: Yes Allergies Coded Allergies: No Known Allergy (Unverified , 05/22/19) Allergies Reviewed: Yes Labs/Studies Labs Reviewed: Reviewed by anesthesiologist Result Diagram: 05/24/19 0534 05/26/19 0423 Laboratory Tests 05/26/19 04:23 test: Negative Pre-procedure Exam Last vitals Vital Signs Date Temp Pulse Resp B/P (MAP) Pulse Ox O2 O2 Flow FiO2 Time Delivery Rate 05/26/19 98.7 52 16 97/53 (68) 95 07:37 05/26/19 Room Air 02:00 Airway: Adequate mouth opening, Adequate thyromental dist Mallampati: Mallampati II Teeth: Normal Lung: Normal Heart: Normal ASA Physical Status ASA physical status: 3 Emergency: None Planned Anesthetic General/MAC: ETT Planned Pain Management Parenteral pain med Pre-operative Attestations Prior to commencing anesthesia and surgery, the patient was re-evaluated, there was verification of: *The patient's identity *The results of appropriate recent lab work and preoperative vital signs *The above evaluation not changing prior to induction *Anesthetic plan, risk benefits, alternative and complications discussed with patient/family; questions answered; patient/family understands, accepts and wishes to proceed. Body Man used KEVON YEBOAH MD May 26, 2019 09:12
[2019-05-26] MEDS ORDERED: LIDOCAINE 1% (MPF) 30 ML INJ ONE (09:40)
[2019-05-26] MEDS ORDERED: BUPIVACAINE 0.25%/EPI (SDV) 30 ML INJ ONE (09:40)
[2019-05-26] MEDS ORDERED: CEFAZOLIN 1 GM INJ ONE ×2 (10:00→11:17)
--- NOTE | 2019-05-26 10:00 | HPN ---
Date/Time of Note Date/Time of Note DATE: 05/26/19 TIME: 10:00 Interval H&P Admission Note Pt. seen H&P reviewed: No system changes ELLYN BURGESS MD May 26, 2019 10:00
[2019-05-26] MEDS ORDERED: ROPIVACAINE 0.5 % 30 ML VIAL ONE (10:03)
[2019-05-26] MEDS ORDERED: PROPOFOL 20 ML ONE (10:25)
[2019-05-26] MEDS ORDERED: ROCURONIUM 50 MG INJ ONE (10:25)
[2019-05-26] MEDS ORDERED: LIDOCAINE 2% (SDV) 5 ML INJ ONE (10:25)
[2019-05-26] MEDS ORDERED: SUCCINYLCHOLINE CHLORIDE 100 MG/5 ML SYG IV ONE (10:25)
[2019-05-26] MEDS ORDERED: MIDAZOLAM 1 MG/ML 2 ML INJ ONE (10:26)
[2019-05-26] MEDS ORDERED: FENTAnyl 50 MCG/ML VIAL ONE (10:26)
[2019-05-26] MEDS ORDERED: EPHEDrine 25 MG/5 ML SYG ONE (11:05)
[2019-05-26] MEDS ORDERED: ONDANSETRON 4 MG INJ ONE (11:17)
[2019-05-26] MEDS ORDERED: FAMOTIDINE 20 MG INJ ONE (11:17)
[2019-05-26] MEDS ORDERED: DEXAMETHASONE 4 MG/ML 5 ML INJ ONE (11:17)
--- NOTE | 2019-05-26 13:24 | OPR ---
Date/Time of Note Date/Time of Note DATE: 05/26/19 TIME: 13:18 Operative Report Procedure Date: May 26, 2019 Preoperative Diagnosis Superior mesenteric artery syndrome Postoperative Diagnosis The same Operation/Procedure Performed Laparoscopic duodenal jejunostomy Surgeon see signature line Internet Programmer None Anesthesia Type: general Anesthesiologist: KEVON YEBOAH MD Estimated Blood Loss: minimal Transfusion none Specimen None Grafts/Implants Omkar-Bolaños drain Complications none Pt Condition Post Procedure: stable Disposition: PACU Indications 33-year-old female with SMA syndrome was admitted few days ago, underwent gastr ic decompression, nutritional support. After appropriate counseling was elected to undergo duodenojejunostomy. We discussed risks and benefits were discussed possible side effects, possible complications including but not limited to bleeding, infection, injury to other organs, anesthesia complication, patient understood risk and benefits and wished to proceed. Procedure Description Patient was brought to the operating room positioned supine. General endotracheal anesthesia was induced. After that she was placed in lithotomy position. Timeout was performed. Abdomen was prepped and draped in usual sterile fashion. Veress needle placed in the small infraumbilical incision and abdomen was insufflated with CO2 up to 15 mmHg. Through the same incision 5 mm trocar was placed. I used 5 mm 30 degree scope to visualize the contents of the abdominal cavity. 2 additional 12 mm trocars were placed in the right in the left lower abdomen. Additional 5 mm trocar in the left subcostal position. The omentum and transverse coral colon were reflected towards the diaphragm. The root of the transverse colon mesentery was visualized. The dissection was performed using harmonic scalpel at the root of the transverse colon mesentery to the right of the superior mesenteric vessels which were clearly visualized. It was opened up at the avascular space. The duodenum became visible. The third portion of duodenum was bluntly sharply dissected distally and and proximally to achieve sufficient segment of the duodenum exposed. After that the loop of jejunum approximately 20 cm from the Treitz ligament was brought along the duodenum and a stay suture was placed. After that the enterotomies were performed in the duodenum and jejunum and I used 60 mm vascular loads [place] stapler to create [id number] duodenojejunostomy. Additional firing of the same staple was performed proximally to create a H-type duodenojejunostomy. The common enterotomy was closed with additional firing of the same staple device. Hemostasis was achieved. The REGINA drain was placed next to the anastomosis. I was unable to perform the leak test since the size of the stomach is so large was not practically possible to infuse amount of air sufficient to create the pressure next anastomosis to check for leak. The 12 mm trocar site were closed using 0 Vicryl for the fascia, 5 mm trocars were closed just using 3-0 Monocryl to the skin. The drain was secured to the skin with Ethilon. Patient tolerated procedure well was extubated transferred to recovery room. ELLYN COLEMAN MD May 26, 2019 13:24
[2019-05-26] MEDS ORDERED: SUGAMMADEX SODIUM 200 MG/2 ML VIAL IV ONE (13:26)
[2019-05-26] MEDS ORDERED: KETOROLAC 30 MG INJ ONE (13:27)
[2019-05-26] MEDS ORDERED: ONDANSETRON 4 MG INJ IV PRN (13:30)
[2019-05-26] MEDS ORDERED: DIPHENHYDRAMINE 50 MG INJ IV PRN (13:30)
[2019-05-26] MEDS ORDERED: METOCLOPRAMIDE 10 MG INJ IV PRN (13:30)
[2019-05-26] MEDS ORDERED: HYDROmorphONE 0.5 MG/0.5 ML SYG IV PRN (13:30)
--- NOTE | 2019-05-26 13:48 | PAC ---
Date/Time of Note Date/Time of Note DATE: 05/26/19 TIME: 13:47 Post-Anesthesia Notes Post-Anesthesia Note Last documented vital signs Vital Signs Date Temp Pulse Resp B/P (MAP) Pulse Ox O2 O2 Flow FiO2 Time Delivery Rate 05/26/19 98.7 52 16 97/53 (68) 95 07:37 05/26/19 Room Air 02:00 Activity: WNL Respiratory function: WNL Cardiovascular function: WNL Mental status: Baseline Pain reasonably controlled: Yes Hydration appropriate: Yes Nausea/Vomiting absent: Yes Comments BP: 122/74 HR: 94 RR: 15 T: 98 Sao2: 100% KEVON YEBOAH MD May 26, 2019 13:48
[2019-05-26] MEDS: D5W-0.45 NACL + KCL 20 MEQ 1,000 ML IV SCH ×2 (17:06→23:11)
[2019-05-26] MEDS: KETOROLAC 15 MG INJ IV PRN (18:02)
[2019-05-27] MEDS: KETOROLAC 15 MG INJ IV PRN
[2019-05-27] MEDS: HYDROmorphONE 0.5 MG/0.5 ML SYG IV PRN ×3 (01:26→20:00)
[2019-05-27 02:26] VITALS: BP 108/65; PULSE 55; RESP 18
[2019-05-27] MEDS: D5W-0.45 NACL + KCL 20 MEQ 1,000 ML IV SCH (02:26)
[2019-05-27] MEDS ORDERED: HYDROmorphONE 1 MG/ML SYG IV ONE (03:00)
[2019-05-27 03:03] VITALS: BP 105/65; PULSE 70
[2019-05-27] MEDS ORDERED: PANTOPRAZOLE 40 MG INJ ONE (04:48)
[2019-05-27] MEDS: PANTOPRAZOLE 40 MG INJ IV SCH (05:16)
[2019-05-27] MEDS: INSULIN ASPART [NOVOLOG] 3 ML PEN SC SCH ×3 (05:16→17:08)
[2019-05-27] MEDS: TPN 1,000 ML IV SCH ×2 (05:48→10:13)
[2019-05-27] MEDS: ACCU-CHEK XX SCH ×3 (05:54→17:08)
[2019-05-27 07:34] VITALS: BP 110/66; PULSE 73; RESP 16
[2019-05-27] MEDS: FAMOTIDINE 20 MG TAB PO SCH (08:35)
[2019-05-27] MEDS: DULOXETINE 20 MG CAP DR PO SCH (08:35)
[2019-05-27] MEDS: ENOXAPARIN 40 MG/0.4 ML SYG SC SCH (08:43)
--- NOTE | 2019-05-27 13:42 | PN ---
Date/Time of Note Date/Time of Note DATE: 05/27/19 TIME: 13:41 Assessment/Plan Lines/Catheters IV Catheter Type (from Nrsg): PICC Line Nunez in Place (from Nrsg): No Assessment/Plan Assessment/Plan Plan is to keep NG tube until passes gas. Subjective 24 Hr Interval Summary Patient is postoperative day 1 after duodenojejunostomy for SMA syndrome. Patient is doing well, afebrile, complains of incisional pain, not passing flatus yet. NG tube is bilious. REGINA drain is serosanguineous. On exam abdomen is flat soft mildly tender. Exam/Review of Systems Vital Signs Vitals Vital Signs Date Temp Pulse Resp B/P (MAP) Pulse Ox O2 O2 Flow FiO2 Time Delivery Rate 05/27/19 98.3 73 16 110/66 96 07:34 (81) 05/26/19 Room Air 14:30 05/26/19 6.0 13:48 Intake and Output 05/26/19 05/26/19 05/27/19 1515:00 23:00 07:00 IntakeIntake Total 1800 ml 750 ml 1797 ml OutputOutput Total 75 ml 50 ml 100 ml BalanceBalance 1725 ml 700 ml 1697 ml Results Result Diagram: 05/24/19 0534 05/27/19 1118 ELLYN BURGESS MD May 27, 2019 13:42
[2019-05-27 14:00] VITALS: BP 115/69; PULSE 71; RESP 16
[2019-05-27] MEDS: FAT EMULSION 20% 250 ML IV SCH (16:51)
[2019-05-27 20:00] VITALS: BP 120/77; PULSE 73; RESP 17
[2019-05-28] MEDS: ACCU-CHEK XX SCH ×4 (00:04→17:14)
[2019-05-28] MEDS: HYDROmorphONE 0.5 MG/0.5 ML SYG IV PRN ×4 (01:59→22:18)
[2019-05-28 02:00] VITALS: BP 112/65; PULSE 62; RESP 17
[2019-05-28] MEDS: TPN 1,000 ML IV SCH ×3 (02:05→16:45)
[2019-05-28] MEDS: PANTOPRAZOLE 40 MG INJ IV SCH (05:52)
[2019-05-28] MEDS: INSULIN ASPART [NOVOLOG] 3 ML PEN SC SCH ×4 (06:00→17:14)
[2019-05-28 07:31] VITALS: BP 110/68; PULSE 54; RESP 16
[2019-05-28] MEDS: ENOXAPARIN 40 MG/0.4 ML SYG SC SCH (09:02)
[2019-05-28 14:00] VITALS: BP 109/63; PULSE 56; RESP 15
[2019-05-28] MEDS: FAT EMULSION 20% 250 ML IV SCH (15:41)
--- NOTE | 2019-05-28 16:55 | PN ---
Date/Time of Note Date/Time of Note DATE: 05/28/19 TIME: 16:53 Assessment/Plan VTE Prophylaxis Risk score (from Ns)>0 risk: 6 SCD applied (from Ns): No SCD contraindicated: low risk/ambulating Pharmacological prophylaxis: LMWH Lines/Catheters IV Catheter Type (from Nrsg): PICC Line Central line still needed: Yes Urinary Cath still in place: No Assessment/Plan Hospital Course Hospitalist Coverage Assessment and plan 1. Superior Mesenteric Artery Syndrome. Stable. POD 2 expl lap- duodeno- ileostomy. 2. Past tobacco 3. Substance: Meth use 4. H/o appy 5. MDD vs PSTD vs Ac stress/ grief dz. 6. Anemia 7. Nutcracker syndrome. Angiogram noted 8. Acute cystitis? Urine sent. S: 05/24 no pain/ n/ v/ fever 05/25 depressed. 05/26: 05/27: No nausea vomiting no flatus 05/28: Dysuria? Has a burning suprapubic pain. No nausea vomiting fever. NG output noted. Feels hungry. O: vss PE no pallor; ng c/d/i reg ctab bs diminished; nt nd no r r g; no bruits no edema' picc c/d/i Result Diagram: 05/28/19 0435 05/28/19 0840 Results 24hrs Laboratory Tests Test 05/27/19 17:08 05/28/19 00:01 05/28/19 04:35 05/28/19 05:51 Bedside Glucose 106 89 96 White Blood Count 8.0 Red Blood Count 2.77 #L Hemoglobin 9.3 L Hematocrit 25.9 L Mean Corpuscular Volume 93.5 Mean Corpuscular 33.6 H Hemoglobin Mean Corpuscular 35.9 Hemoglobin Concent Red Cell Distribution 12.6 Width Platelet Count 185 Mean Platelet Volume 10.7 H Immature Granulocytes % 0.400 Neutrophils % Segmented Neutrophils 60 % (Manual) Band Neutrophils % 6 H (Manual) Lymphocytes % Lymphocytes % (Manual) 23 Monocytes % Monocytes % (Manual) 3 Eosinophils % Eosinophils % (Manual) 8 H Basophils % Nucleated Red Blood 0.0 Cells % Immature Granulocytes # 0.030 Neutrophils # Neutrophils # (Manual) 4.8 Band Neutrophils # 0.4 Lymphocytes (Manual) 1.8 Lymphocytes # Monocytes # Monocytes # (Manual) 0.2 L Eosinophils # Basophils # Nucleated Red Blood Cells # Platelet Estimate NORMAL Polychromasia 1+ Poikilocytosis 2+ Anisocytosis 2+ Macrocytosis 1+ Target Cells 1+ Phosphorus Level 6.4 #H Magnesium Level 1.7 Test 05/28/19 08:40 05/28/19 12:28 Sodium Level 142 Potassium Level 4.3 Chloride Level 107 Carbon Dioxide Level 28 Anion Gap 7 Blood Urea Nitrogen 12 Creatinine 0.47 Est Glomerular Filtrat > 60 Rate mL/min Glucose Level 84 Calcium Level 8.5 Phosphorus Level 4.0 # Magnesium Level 2.0 Total Bilirubin 0.5 Direct Bilirubin 0.00 Indirect Bilirubin 0.5 Aspartate Amino 23 Transf (AST/SGOT) Alanine 19 Aminotransferase (ALT/SG PT) Alkaline Phosphatase 28 L Total Protein 5.9 L Albumin 3.1 L Globulin 2.80 Albumin/Globulin Ratio 1.10 Bedside Glucose 117 Exam/Review of Systems Exam Vitals Vital Signs Date Temp Pulse Resp B/P (MAP) Pulse Ox O2 O2 Flow FiO2 Time Delivery Rate 05/28/19 97.8 56 15 109/63 98 Room Air 14:00 (78) 05/26/19 6.0 13:48 Intake and Output 05/27/19 05/27/19 05/28/19 1515:00 23:00 07:00 IntakeIntake Total 1000 ml OutputOutput Total 110 ml 160 ml BalanceBalance -110 ml 840 ml Results Results 24hrs Laboratory Tests Test 05/27/19 17:08 05/28/19 00:01 05/28/19 04:35 05/28/19 05:51 Bedside Glucose 106 89 96 White Blood Count 8.0 Red Blood Count 2.77 #L Hemoglobin 9.3 L Hematocrit 25.9 L Mean Corpuscular Volume 93.5 Mean Corpuscular 33.6 H Hemoglobin Mean Corpuscular 35.9 Hemoglobin Concent Red Cell Distribution 12.6 Width Platelet Count 185 Mean Platelet Volume 10.7 H Immature Granulocytes % 0.400 Neutrophils % Segmented Neutrophils 60 % (Manual) Band Neutrophils % 6 H (Manual) Lymphocytes % Lymphocytes % (Manual) 23 Monocytes % Monocytes % (Manual) 3 Eosinophils % Eosinophils % (Manual) 8 H Basophils % Nucleated Red Blood 0.0 Cells % Immature Granulocytes # 0.030 Neutrophils # Neutrophils # (Manual) 4.8 Band Neutrophils # 0.4 Lymphocytes (Manual) 1.8 Lymphocytes # Monocytes # Monocytes # (Manual) 0.2 L Eosinophils # Basophils # Nucleated Red Blood Cells # Platelet Estimate NORMAL Polychromasia 1+ Poikilocytosis 2+ Anisocytosis 2+ Macrocytosis 1+ Target Cells 1+ Phosphorus Level 6.4 #H Magnesium Level 1.7 Test 05/28/19 08:40 05/28/19 12:28 Sodium Level 142 Potassium Level 4.3 Chloride Level 107 Carbon Dioxide Level 28 Anion Gap 7 Blood Urea Nitrogen 12 Creatinine 0.47 Est Glomerular Filtrat > 60 Rate mL/min Glucose Level 84 Calcium Level 8.5 Phosphorus Level 4.0 # Magnesium Level 2.0 Total Bilirubin 0.5 Direct Bilirubin 0.00 Indirect Bilirubin 0.5 Aspartate Amino 23 Transf (AST/SGOT) Alanine 19 Aminotransferase (ALT/SG PT) Alkaline Phosphatase 28 L Total Protein 5.9 L Albumin 3.1 L Globulin 2.80 Albumin/Globulin Ratio 1.10 Bedside Glucose 117 Medications Medication Current Medications IV Flush (NS 3 ml) 3 ml PER PROTOCOL IV ; Start 05/22/19 at 14:00 Total Parenteral Nutrition 1,000 ml @ 70 mls/hr [id number] IV Last administered on 05/28/19at 16:45; Admin Dose 70 MLS/HR; Start 05/23/19 at 16:00 IV Flush (NS 10 ml) 10 ml PRN PRN IV IV PROTOCOL; Start 05/23/19 at 11:00 Miscellaneous Information 1 ea NOTE XX ; Start 05/24/19 at 02:30 Glucose (Glutose) 15 gm Q15M PRN PO DECREASED GLUCOSE; Start 05/24/19 at 02:30 Glucose (Glutose) 22.5 gm Q15M PRN PO DECREASED GLUCOSE; Start 05/24/19 at 02:30 Dextrose (D50w Syringe) 25 ml Q15M PRN IV DECREASED GLUCOSE Last administered on 05/24/19at 22:08; Admin Dose 25 ML; Start 05/24/19 at 02:30 Dextrose (D50w Syringe) 50 ml Q15M PRN IV DECREASED GLUCOSE; Start 05/24/19 at 02:30 Glucagon (Glucagen) 1 mg Q15M PRN IM DECREASED GLUCOSE; Start 05/24/19 at 02:30 Glucose (Glutose) 15 gm Q15M PRN BUCCAL DECREASED GLUCOSE; Start 05/24/19 at 02:30 Enoxaparin Sodium (Lovenox) 40 mg DAILY SC Last administered on 05/28/19 09:02; Admin Dose 40 MG; Start 05/25/19 at 09:00 Insulin Aspart (Novolog Insulin Pen) NOVOLOG *MILD* ALGORI... Q6 SC Last administered on 05/27/19 05:16; Admin Dose 1 UNIT; Start 05/25/19 at 06:00 Diagnostic Test (Pha) (Accu-Chek) 1 ea Q6 XX Last administered on 05/28/19 12:3 3; Admin Dose 1 EA; Start 05/25/19 at 06:00 Ketorolac Tromethamine (Toradol) 15 mg Q6H PRN IV PAIN Last administered on 05/27/19 00:00; Admin Dose 15 MG; Start 05/26/19 at 13:30; Stop 05/29/19 at 13:29 Diphenhydramine HCl (Benadryl) 25 mg Q6H PRN IV ITCHING; Start 05/26/19 at 13:30 Metoclopramide HCl (Reglan) 10 mg Q6H PRN IV NAUSEA AND/OR VOMITING Last administered on 05/27/19 12:12; Admin Dose 10 MG; Start 05/26/19 at 13:30 Ondansetron HCl (Zofran Inj) 4 mg Q6H PRN IV NAUSEA AND/OR VOMITING; Start 05/26/19 at 13:30 Pantoprazole (Protonix Iv) 40 mg DAILY@06 IV Last administered on 05/28/19 05: 52; Admin Dose 40 MG; Start 05/27/19 at 06:00 Hydromorphone HCl (Dilaudid) 1 mg Q4H PRN IV .SEVERE PAIN 7-10 Last administered on 05/28/19 12:38; Admin Dose 1 MG; Start 05/27/19 at 14:00 Fat Emulsion Intravenous 250 ml @ 10.417 mls/ hr DAILY@16 IV Last administered on 05/28/19 15:41; Admin Dose 10.417 MLS/HR; Start 05/27/19 at 16:00 Duloxetine HCl (Cymbalta) 20 mg DAILY PO ; Start 06/02/19 at 09:00 TAVIA BRANCH MD May 28, 2019 16:55
--- NOTE | 2019-05-28 16:57 | PN ---
Date/Time of Note Date/Time of Note DATE: 05/28/19 TIME: 16:56 Assessment/Plan VTE Prophylaxis Risk score (from [facility])>0 risk: 6 SCD applied (from [facility]): No SCD contraindicated: low risk/ambulating Pharmacological prophylaxis: NA/contraindicated Pharm contraindication: surgical contra Lines/Catheters IV [facility]ter Type (from [facility]): PICC Line Central line still needed: Yes Urinary Cath still in place: No Assessment/Plan Hospital Course Late entry for 05/26 Assessment and plan 1. Superior Mesenteric Artery Syndrome. Stable. For sp expl lap- duodeno- ileostomy. 2. Past tobacco 3. Substance: Meth use 4. H/o appy 5. MDD vs PSTD vs Ac stress/ grief dz. 6. Anemia 7. Nutcracker syndrome. Angiogram noted 8. Acute cystitis? Urine sent. S: 05/24 no pain/ n/ v/ fever 05/25 depressed. 05/26 in OR O: vss PE -deferred; Patient in OR Result Diagram: 05/28/19 0435 05/28/19 0840 Results 24hrs Laboratory Tests Test 05/27/19 17:08 05/28/19 00:01 05/28/19 04:35 05/28/19 05:51 Bedside Glucose 106 89 96 White Blood Count 8.0 Red Blood Count 2.77 #L Hemoglobin 9.3 L Hematocrit 25.9 L Mean Corpuscular Volume 93.5 Mean Corpuscular 33.6 H Hemoglobin Mean Corpuscular 35.9 Hemoglobin Concent Red Cell Distribution 12.6 Width Platelet Count 185 Mean Platelet Volume 10.7 H Immature Granulocytes % 0.400 Neutrophils % Segmented Neutrophils 60 % (Manual) Band Neutrophils % 6 H (Manual) Lymphocytes % Lymphocytes % (Manual) 23 Monocytes % Monocytes % (Manual) 3 Eosinophils % Eosinophils % (Manual) 8 H Basophils % Nucleated Red Blood 0.0 Cells % Immature Granulocytes # 0.030 Neutrophils # Neutrophils # (Manual) 4.8 Band Neutrophils # 0.4 Lymphocytes (Manual) 1.8 Lymphocytes # Monocytes # Monocytes # (Manual) 0.2 L Eosinophils # Basophils # Nucleated Red Blood Cells # Platelet Estimate NORMAL Polychromasia 1+ Poikilocytosis 2+ Anisocytosis 2+ Macrocytosis 1+ Target Cells 1+ Phosphorus Level 6.4 #H Magnesium Level 1.7 Test 05/28/19 08:40 05/28/19 12:28 Sodium Level 142 Potassium Level 4.3 Chloride Level 107 Carbon Dioxide Level 28 Anion Gap 7 Blood Urea Nitrogen 12 Creatinine 0.47 Est Glomerular Filtrat > 60 Rate mL/min Glucose Level 84 Calcium Level 8.5 Phosphorus Level 4.0 # Magnesium Level 2.0 Total Bilirubin 0.5 Direct Bilirubin 0.00 Indirect Bilirubin 0.5 Aspartate Amino 23 Transf (AST/SGOT) Alanine 19 Aminotransferase (ALT/SG PT) Alkaline Phosphatase 28 L Total Protein 5.9 L Albumin 3.1 L Globulin 2.80 Albumin/Globulin Ratio 1.10 Bedside Glucose 117 Exam/Review of Systems Exam Vitals Vital Signs Date Temp Pulse Resp B/P (MAP) Pulse Ox O2 O2 Flow FiO2 Time Delivery Rate 05/28/19 97.8 56 15 109/63 98 Room Air 14:00 (78) 05/26/19 6.0 13:48 Intake and Output 05/27/19 05/27/19 05/28/19 1515:00 23:00 07:00 IntakeIntake Total 1000 ml OutputOutput Total 110 ml 160 ml BalanceBalance -110 ml 840 ml Results Results 24hrs Laboratory Tests Test 05/27/19 17:08 05/28/19 00:01 05/28/19 04:35 05/28/19 05:51 Bedside Glucose 106 89 96 White Blood Count 8.0 Red Blood Count 2.77 #L Hemoglobin 9.3 L Hematocrit 25.9 L Mean Corpuscular Volume 93.5 Mean Corpuscular 33.6 H Hemoglobin Mean Corpuscular 35.9 Hemoglobin Concent Red Cell Distribution 12.6 Width Platelet Count 185 Mean Platelet Volume 10.7 H Immature Granulocytes % 0.400 Neutrophils % Segmented Neutrophils 60 % (Manual) Band Neutrophils % 6 H (Manual) Lymphocytes % Lymphocytes % (Manual) 23 Monocytes % Monocytes % (Manual) 3 Eosinophils % Eosinophils % (Manual) 8 H Basophils % Nucleated Red Blood 0.0 Cells % Immature Granulocytes # 0.030 Neutrophils # Neutrophils # (Manual) 4.8 Band Neutrophils # 0.4 Lymphocytes (Manual) 1.8 Lymphocytes # Monocytes # Monocytes # (Manual) 0.2 L Eosinophils # Basophils # Nucleated Red Blood Cells # Platelet Estimate NORMAL Polychromasia 1+ Poikilocytosis 2+ Anisocytosis 2+ Macrocytosis 1+ Target Cells 1+ Phosphorus Level 6.4 #H Magnesium Level 1.7 Test 05/28/19 08:40 05/28/19 12:28 Sodium Level 142 Potassium Level 4.3 Chloride Level 107 Carbon Dioxide Level 28 Anion Gap 7 Blood Urea Nitrogen 12 Creatinine 0.47 Est Glomerular Filtrat > 60 Rate mL/min Glucose Level 84 Calcium Level 8.5 Phosphorus Level 4.0 # Magnesium Level 2.0 Total Bilirubin 0.5 Direct Bilirubin 0.00 Indirect Bilirubin 0.5 Aspartate Amino 23 Transf (AST/SGOT) Alanine 19 Aminotransferase (ALT/SG PT) Alkaline Phosphatase 28 L Total Protein 5.9 L Albumin 3.1 L Globulin 2.80 Albumin/Globulin Ratio 1.10 Bedside Glucose 117 Medications Medication Current Medications IV Flush (NS 3 ml) 3 ml PER PROTOCOL IV ; Start 05/22/19 at 14:00 Total Parenteral Nutrition 1,000 ml @ 70 mls/hr [id number] IV Last administered on 05/28/19at 16:45; Admin Dose 70 MLS/HR; Start 05/23/19 at 16:00 IV Flush (NS 10 ml) 10 ml PRN PRN IV IV PROTOCOL; Start 05/23/19 at 11:00 Miscellaneous Information 1 ea NOTE XX ; Start 05/24/19 at 02:30 Glucose (Glutose) 15 gm Q15M PRN PO DECREASED GLUCOSE; Start 05/24/19 at 02:30 Glucose (Glutose) 22.5 gm Q15M PRN PO DECREASED GLUCOSE; Start 05/24/19 at 02:30 Dextrose (D50w Syringe) 25 ml Q15M PRN IV DECREASED GLUCOSE Last administered on 05/24/19at 22:08; Admin Dose 25 ML; Start 05/24/19 at 02:30 Dextrose (D50w Syringe) 50 ml Q15M PRN IV DECREASED GLUCOSE; Start 05/24/19 at 02:30 Glucagon (Glucagen) 1 mg Q15M PRN IM DECREASED GLUCOSE; Start 05/24/19 at 02:30 Glucose (Glutose) 15 gm Q15M PRN BUCCAL DECREASED GLUCOSE; Start 05/24/19 at 02:30 Enoxaparin Sodium (Lovenox) 40 mg DAILY SC Last administered on 05/28/19at 09:02; Admin Dose 40 MG; Start 05/25/19 at 09:00 Insulin Aspart (Novolog Insulin Pen) NOVOLOG *MILD* ALGORI... Q6 SC Last administered on 05/27/19 05:16; Admin Dose 1 UNIT; Start 05/25/19 at 06:00 Diagnostic Test (Pha) (Accu-Chek) 1 ea Q6 XX Last administered on 05/28/19 12:33; Admin Dose 1 EA; Start 05/25/19 at 06:00 Ketorolac Tromethamine (Toradol) 15 mg Q6H PRN IV PAIN Last administered on 05/27/19 00:00; Admin Dose 15 MG; Start 05/26/19 at 13:30; Stop 05/29/19 at 13:29 Diphenhydramine HCl (Benadryl) 25 mg Q6H PRN IV ITCHING; Start 05/26/19 at 13:30 Metoclopramide HCl (Reglan) 10 mg Q6H PRN IV NAUSEA AND/OR VOMITING Last administered on 05/27/19 12:12; Admin Dose 10 MG; Start 05/26/19 at 13:30 Ondansetron HCl (Zofran Inj) 4 mg Q6H PRN IV NAUSEA AND/OR VOMITING; Start 05/26/19 at 13:30 Pantoprazole (Protonix Iv) 40 mg DAILY@06 IV Last administered on 05/28/19 05:52; Admin Dose 40 MG; Start 05/27/19 at 06:00 Hydromorphone HCl (Dilaudid) 1 mg Q4H PRN IV .SEVERE PAIN 7-10 Last administered on 05/28/19 12:38; Admin Dose 1 MG; Start 05/27/19 at 14:00 Fat Emulsion Intravenous 250 ml @ 10.417 mls/ hr DAILY@16 IV Last administered on 05/28/19 15:41; Admin Dose 10.417 MLS/HR; Start 05/27/19 at 16:00 Duloxetine HCl (Cymbalta) 20 mg DAILY PO ; Start 06/02/19 at 09:00 TAVIA BRANCH MD May 28, 2019 16:57
--- NOTE | 2019-05-28 16:58 | PN ---
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 2. Past tobacco 3. Substance: Meth use 4. H/o appy 5. MDD vs PSTD vs Ac stress/ grief dz. 6. Anemia 7. Nutcracker syndrome. Angiogram noted 8. Acute cystitis? Urine sent. S: 05/24 no pain/ n/ v/ fever 05/25 depressed. 05/26: in or 05/27: No nausea vomiting no flatus O: vss PE no pallor; ng c/d/i reg ctab bs diminished; nt nd no r r g; no bruits no edema' picc c/d/i Result Diagram: 05/28/19 0435 05/28/19 0840 Results 24hrs Laboratory Tests Test 05/27/19 17:08 05/28/19 00:01 05/28/19 04:35 05/28/19 05:51 Bedside Glucose 106 89 96 White Blood Count 8.0 Red Blood Count 2.77 #L Hemoglobin 9.3 L Hematocrit 25.9 L Mean Corpuscular Volume 93.5 Mean Corpuscular 33.6 H Hemoglobin Mean Corpuscular 35.9 Hemoglobin Concent Red Cell Distribution 12.6 Width Platelet Count 185 Mean Platelet Volume 10.7 H Immature Granulocytes % 0.400 Neutrophils % Segmented Neutrophils 60 % (Manual) Band Neutrophils % 6 H (Manual) Lymphocytes % Lymphocytes % (Manual) 23 Monocytes % Monocytes % (Manual) 3 Eosinophils % Eosinophils % (Manual) 8 H Basophils % Nucleated Red Blood 0.0 Cells % Immature Granulocytes # 0.030 Neutrophils # Neutrophils # (Manual) 4.8 Band Neutrophils # 0.4 Lymphocytes (Manual) 1.8 Lymphocytes # Monocytes # Monocytes # (Manual) 0.2 L Eosinophils # Basophils # Nucleated Red Blood Cells # Platelet Estimate NORMAL Polychromasia 1+ Poikilocytosis 2+ Anisocytosis 2+ Macrocytosis 1+ Target Cells 1+ Phosphorus Level 6.4 #H Magnesium Level 1.7 Test 05/28/19 08:40 05/28/19 12:28 Sodium Level 142 Potassium Level 4.3 Chloride Level 107 Carbon Dioxide Level 28 Anion Gap 7 Blood Urea Nitrogen 12 Creatinine 0.47 Est Glomerular Filtrat > 60 Rate mL/min Glucose Level 84 Calcium Level 8.5 Phosphorus Level 4.0 # Magnesium Level 2.0 Total Bilirubin 0.5 Direct Bilirubin 0.00 Indirect Bilirubin 0.5 Aspartate Amino 23 Transf (AST/SGOT) Alanine 19 Aminotransferase (ALT/SG PT) Alkaline Phosphatase 28 L Total Protein 5.9 L Albumin 3.1 L Globulin 2.80 Albumin/Globulin Ratio 1.10 Bedside Glucose 117 Exam/Review of Systems Exam Vitals Vital Signs Date Temp Pulse Resp B/P (MAP) Pulse Ox O2 O2 Flow FiO2 Time Delivery Rate 05/28/19 97.8 56 15 109/63 98 Room Air 14:00 (78) 05/26/19 6.0 13:48 Intake and Output 05/27/19 05/27/19 05/28/19 1515:00 23:00 07:00 IntakeIntake Total 1000 ml OutputOutput Total 110 ml 160 ml BalanceBalance -110 ml 840 ml Results Results 24hrs Laboratory Tests Test 05/27/19 17:08 05/28/19 00:01 05/28/19 04:35 05/28/19 05:51 Bedside Glucose 106 89 96 White Blood Count 8.0 Red Blood Count 2.77 #L Hemoglobin 9.3 L Hematocrit 25.9 L Mean Corpuscular Volume 93.5 Mean Corpuscular 33.6 H Hemoglobin Mean Corpuscular 35.9 Hemoglobin Concent Red Cell Distribution 12.6 Width Platelet Count 185 Mean Platelet Volume 10.7 H Immature Granulocytes % 0.400 Neutrophils % Segmented Neutrophils 60 % (Manual) Band Neutrophils % 6 H (Manual) Lymphocytes % Lymphocytes % (Manual) 23 Monocytes % Monocytes % (Manual) 3 Eosinophils % Eosinophils % (Manual) 8 H Basophils % Nucleated Red Blood 0.0 Cells % Immature Granulocytes # 0.030 Neutrophils # Neutrophils # (Manual) 4.8 Band Neutrophils # 0.4 Lymphocytes (Manual) 1.8 Lymphocytes # Monocytes # Monocytes # (Manual) 0.2 L Eosinophils # Basophils # Nucleated Red Blood Cells # Platelet Estimate NORMAL Polychromasia 1+ Poikilocytosis 2+ Anisocytosis 2+ Macrocytosis 1+ Target Cells 1+ Phosphorus Level 6.4 #H Magnesium Level 1.7 Test 05/28/19 08:40 05/28/19 12:28 Sodium Level 142 Potassium Level 4.3 Chloride Level 107 Carbon Dioxide Level 28 Anion Gap 7 Blood Urea Nitrogen 12 Creatinine 0.47 Est Glomerular Filtrat > 60 Rate mL/min Glucose Level 84 Calcium Level 8.5 Phosphorus Level 4.0 # Magnesium Level 2.0 Total Bilirubin 0.5 Direct Bilirubin 0.00 Indirect Bilirubin 0.5 Aspartate Amino 23 Transf (AST/SGOT) Alanine 19 Aminotransferase (ALT/SG PT) Alkaline Phosphatase 28 L Total Protein 5.9 L Albumin 3.1 L Globulin 2.80 Albumin/Globulin Ratio 1.10 Bedside Glucose 117 Medications Medication Current Medications IV Flush (NS 3 ml) 3 ml PER PROTOCOL IV ; Start 05/22/19 at 14:00 Total Parenteral Nutrition 1,000 ml @ 70 mls/hr [id number] IV Last administered on 05/28/19at 16:45; Admin Dose 70 MLS/HR; Start 05/23/19 at 16:00 IV Flush (NS 10 ml) 10 ml PRN PRN IV IV PROTOCOL; Start 05/23/19 at 11:00 Miscellaneous Information 1 ea NOTE XX ; Start 05/24/19 at 02:30 Glucose (Glutose) 15 gm Q15M PRN PO DECREASED GLUCOSE; Start 05/24/19 at 02:30 Glucose (Glutose) 22.5 gm Q15M PRN PO DECREASED GLUCOSE; Start 05/24/19 at 02:30 Dextrose (D50w Syringe) 25 ml Q15M PRN IV DECREASED GLUCOSE Last administered on 05/24/19at 22:08; Admin Dose 25 ML; Start 05/24/19 at 02:30 Dextrose (D50w Syringe) 50 ml Q15M PRN IV DECREASED GLUCOSE; Start 05/24/19 at 02:30 Glucagon (Glucagen) 1 mg Q15M PRN IM DECREASED GLUCOSE; Start 05/24/19 at 02:30 Glucose (Glutose) 15 gm Q15M PRN BUCCAL DECREASED GLUCOSE; Start 05/24/19 at 02:30 Enoxaparin Sodium (Lovenox) 40 mg DAILY SC Last administered on 05/28/19 09:02; Admin Dose 40 MG; Start 05/25/19 at 09:00 Insulin Aspart (Novolog Insulin Pen) NOVOLOG *MILD* ALGORI... Q6 SC Last administered on 05/27/19 05:16; Admin Dose 1 UNIT; Start 05/25/19 at 06:00 Diagnostic Test (Pha) (Accu-Chek) 1 ea Q6 XX Last administered on 05/28/19 12:33; Admin Dose 1 EA; Start 05/25/19 at 06:00 Ketorolac Tromethamine (Toradol) 15 mg Q6H PRN IV PAIN Last administered on 05/27/19 00:00; Admin Dose 15 MG; Start 05/26/19 at 13:30; Stop 05/29/19 at 13:29 Diphenhydramine HCl (Benadryl) 25 mg Q6H PRN IV ITCHING; Start 05/26/19 at 13:30 Metoclopramide HCl (Reglan) 10 mg Q6H PRN IV NAUSEA AND/OR VOMITING Last administered on 05/27/19 12:12; Admin Dose 10 MG; Start 05/26/19 at 13:30 Ondansetron HCl (Zofran Inj) 4 mg Q6H PRN IV NAUSEA AND/OR VOMITING; Start 05/26/19 at 13:30 Pantoprazole (Protonix Iv) 40 mg DAILY@06 IV Last administered on 05/28/19 05:52; Admin Dose 40 MG; Start 05/27/19 at 06:00 Hydromorphone HCl (Dilaudid) 1 mg Q4H PRN IV .SEVERE PAIN 7-10 Last administered on 05/28/19 12:38; Admin Dose 1 MG; Start 05/27/19 at 14:00 Fat Emulsion Intravenous 250 ml @ 10.417 mls/ hr DAILY@16 IV Last administered on 05/28/19 15:41; Admin Dose 10.417 MLS/HR; Start 05/27/19 at 16:00 Duloxetine HCl (Cymbalta) 20 mg DAILY PO ; Start 06/02/19 at 09:00 TAVIA BRANCH MD May 28, 2019 16:58
--- NOTE | 2019-05-28 17:30 | PN ---
Date/Time of Note Date/Time of Note DATE: 05/28/19 TIME: 17:29 Assessment/Plan Lines/Catheters IV Catheter Type (from Nrs): PICC Line Nunez in Place (from Nrs): No Assessment/Plan Assessment/Plan Continue n.p.o., NG suction. Await bowel movement. Subjective 24 Hr Interval Summary Day 2 after duodenojejunostomy. Stable afebrile. Started to pass gas. Still bilious output from the NG tube. REGINA drain serosanguineous. Abdomen is soft. Wounds clean. Exam/Review of Systems Vital Signs Vitals Vital Signs Date Temp Pulse Resp B/P (MAP) Pulse Ox O2 O2 Flow FiO2 Time Delivery Rate 05/28/19 97.8 56 15 109/63 98 Room Air 14:00 (78) 05/26/19 6.0 13:48 Intake and Output 05/27/19 05/27/19 05/28/19 1515:00 23:00 07:00 IntakeIntake Total 1000 ml OutputOutput Total 110 ml 160 ml BalanceBalance -110 ml 840 ml Results Result Diagram: 05/28/19 0435 05/28/19 0840 ELLYN BURGESS MD May 28, 2019 17:30
[2019-05-28 20:00] VITALS: BP 114/61; PULSE 67; RESP 16
[2019-05-29] MEDS: ACCU-CHEK XX SCH ×4 (00:01→17:23)
[2019-05-29 02:12] VITALS: BP 124/64; PULSE 62; RESP 18
[2019-05-29] MEDS: HYDROmorphONE 0.5 MG/0.5 ML SYG IV PRN ×3 (02:24→19:37)
[2019-05-29] MEDS: INSULIN ASPART [NOVOLOG] 3 ML PEN SC SCH ×5 (06:00→23:53)
[2019-05-29] MEDS: PANTOPRAZOLE 40 MG INJ IV SCH (06:02)
[2019-05-29] MEDS: TPN 1,000 ML IV SCH ×2 (06:24→21:38)
[2019-05-29 08:02] VITALS: BP 97/53; PULSE 50; RESP 15
[2019-05-29] MEDS: ENOXAPARIN 40 MG/0.4 ML SYG SC SCH (09:06)
[2019-05-29 14:04] VITALS: BP 106/55; PULSE 60; RESP 15
--- NOTE | 2019-05-29 17:28 | PN ---
Date/Time of Note Date/Time of Note DATE: 05/29/19 TIME: 17:25 Assessment/Plan VTE Prophylaxis Risk score (from Nsg)>0 risk: 6 SCD applied (from Nsg): Yes Pharmacological prophylaxis: LMWH Lines/Catheters IV Catheter Type (from Nrsg): PICC Line Central line still needed: Yes Urinary Cath still in place: No Assessment/Plan Hospital Course SUBJECTIVE: Remains on NGT decompression. Continues to have abdominal pain. OBJECTIVE: Physical Exam General: Thin 33 year-old female lying in bed in no apparent distress. HEENT: Normocephalic, atraumatic. Eyes: Anicteric sclerae, conjunctivae clear. ENT: Nasal septum midline, oral mucosa is dry. Neck supple, no JVD noticed. Respiratory: Bilaterally diminished breath sounds. No use of accessory muscles of respiration. No adventitious breath sounds. Cardiovascular: S1, S2 heard. Regular rate and rhythm. Abdomen: Soft and nondistended.. Laparoscopic surgical incisions healing well. REGINA drain in place. Genitourinary: Deferred. Extremities: No cyanosis, no clubbing, no edema. Peripheral pulses palpable. Neurologic: Cranial nerves II through XII grossly intact. The patient is awake, alert, and oriented. Skin: Normal skin turgor. No skin rashes. 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 1. SMA syndrome.Abdominal pain. Status post laparoscopic duodenojejunostomy on 05/26/2019. NGT decompression. Initiation of diet as per general surgery. Continue TPN as per general surgery recommendations. 2. Moderate protein calorie malnutrition. Continue TPN. 3. Fluids, electrolytes, and nutrition. TPN. 4. DVT prophylaxis. Bilateral SCDs. SQ Lovenox. 5. Plan. Continue pain control. Continue NGT decompression. Initiation of diet as per surgery. The patient was seen in collaboration with Dr. Belle. Result Diagram: 05/29/19 0459 05/29/19 0756 Results 24hrs Laboratory Tests Test 05/28/19 23:57 05/29/19 04:59 05/29/19 06:01 05/29/19 07:56 Bedside Glucose 104 110 White Blood Count 7.9 Red Blood Count 2.96 L Hemoglobin 9.2 L Hematocrit 25.9 L Mean Corpuscular Volume 87.5 Mean Corpuscular 31.1 Hemoglobin Mean Corpuscular 35.5 Hemoglobin Concent Red Cell Distribution 12.3 Width Platelet Count 193 Mean Platelet Volume 10.9 H Immature Granulocytes % 0.300 Neutrophils % 57.7 Lymphocytes % 27.0 Monocytes % 6.4 Eosinophils % 7.8 H Basophils % 0.8 Nucleated Red Blood 0.0 Cells % Immature Granulocytes # 0.020 Neutrophils # 4.6 Lymphocytes # 2.1 Monocytes # 0.5 Eosinophils # 0.6 H Basophils # 0.1 Nucleated Red Blood 0.0 Cells # Sodium Level 134 L 141 Potassium Level 5.0 3.7 Chloride Level 99 104 Carbon Dioxide Level 26 31 Anion Gap 9 6 Blood Urea Nitrogen 12 13 Creatinine 0.67 0.57 Est Glomerular Filtrat > 60 > 60 Rate mL/min Glucose Level 529 #*H 88 Calcium Level 8.4 8.7 Phosphorus Level 6.2 #H 5.0 H Magnesium Level 1.9 1.9 Total Bilirubin 0.5 Direct Bilirubin 0.00 Indirect Bilirubin 0.5 Aspartate Amino 23 Transf (AST/SGOT) Alanine 12 L Aminotransferase (ALT/SG PT) Alkaline Phosphatase 26 L Total Protein 5.6 L Albumin 3.0 L Globulin 2.60 Albumin/Globulin Ratio 1.15 Prealbumin 16.0 L Triglycerides Level 794 H Test 05/29/19 12:09 05/29/19 17:22 Bedside Glucose 111 107 Exam/Review of Systems Exam Vitals Vital Signs Date Temp Pulse Resp B/P (MAP) Pulse Ox O2 O2 Flow FiO2 Time Delivery Rate 05/29/19 98.5 60 15 106/55 96 Room Air 14:04 (72) 05/26/19 6.0 13:48 Intake and Output 05/28/19 05/28/19 05/29/19 1515:00 23:00 07:00 IntakeIntake Total 1160 ml 1125 ml OutputOutput Total 201 ml 202 ml BalanceBalance 959 ml 923 ml Results Results 24hrs Laboratory Tests Test 05/28/19 23:57 05/29/19 04:59 05/29/19 06:01 05/29/19 07:56 Bedside Glucose 104 110 White Blood Count 7.9 Red Blood Count 2.96 L Hemoglobin 9.2 L Hematocrit 25.9 L Mean Corpuscular Volume 87.5 Mean Corpuscular 31.1 Hemoglobin Mean Corpuscular 35.5 Hemoglobin Concent Red Cell Distribution 12.3 Width Platelet Count 193 Mean Platelet Volume 10.9 H Immature Granulocytes % 0.300 Neutrophils % 57.7 Lymphocytes % 27.0 Monocytes % 6.4 Eosinophils % 7.8 H Basophils % 0.8 Nucleated Red Blood 0.0 Cells % Immature Granulocytes # 0.020 Neutrophils # 4.6 Lymphocytes # 2.1 Monocytes # 0.5 Eosinophils # 0.6 H Basophils # 0.1 Nucleated Red Blood 0.0 Cells # Sodium Level 134 L 141 Potassium Level 5.0 3.7 Chloride Level 99 104 Carbon Dioxide Level 26 31 Anion Gap 9 6 Blood Urea Nitrogen 12 13 Creatinine 0.67 0.57 Est Glomerular Filtrat > 60 > 60 Rate mL/min Glucose Level 529 #*H 88 Calcium Level 8.4 8.7 Phosphorus Level 6.2 #H 5.0 H Magnesium Level 1.9 1.9 Total Bilirubin 0.5 Direct Bilirubin 0.00 Indirect Bilirubin 0.5 Aspartate Amino 23 Transf (AST/SGOT) Alanine 12 L Aminotransferase (ALT/SG PT) Alkaline Phosphatase 26 L Total Protein 5.6 L Albumin 3.0 L Globulin 2.60 Albumin/Globulin Ratio 1.15 Prealbumin 16.0 L Triglycerides Level 794 H Test 05/29/19 12:09 05/29/19 17:22 Bedside Glucose 111 107 Medications Medication Current Medications IV Flush (NS 3 ml) 3 ml PER PROTOCOL IV ; Start 05/22/19 at 14:00 Total Parenteral Nutrition 1,000 ml @ 70 mls/hr [id number] IV Last administered on 05/29/19at 06:24; Admin Dose 70 MLS/HR; Start 05/23/19 at 16:00 IV Flush (NS 10 ml) 10 ml PRN PRN IV IV PROTOCOL; Start 05/23/19 at 11:00 Miscellaneous Information 1 ea NOTE XX ; Start 05/24/19 at 02:30 Glucose (Glutose) 15 gm Q15M PRN PO DECREASED GLUCOSE; Start 05/24/19 at 02:30 Glucose (Glutose) 22.5 gm Q15M PRN PO DECREASED GLUCOSE; Start 05/24/19 at 02:30 Dextrose (D50w Syringe) 25 ml Q15M PRN IV DECREASED GLUCOSE Last administered on 05/24/19 22:08; Admin Dose 25 ML; Start 05/24/19 at 02:30 Dextrose (D50w Syringe) 50 ml Q15M PRN IV DECREASED GLUCOSE; Start 05/24/19 at 02:30 Glucagon (Glucagen) 1 mg Q15M PRN IM DECREASED GLUCOSE; Start 05/24/19 at 02:30 Glucose (Glutose) 15 gm Q15M PRN BUCCAL DECREASED GLUCOSE; Start 05/24/19 at 02:30 Enoxaparin Sodium (Lovenox) 40 mg DAILY SC Last administered on 05/29/19 09:06; Admin Dose 40 MG; Start 05/25/19 at 09:00 Insulin Aspart (Novolog Insulin Pen) NOVOLOG *MILD* ALGORI... Q6 SC Last admini stered on 05/27/19 05:16; Admin Dose 1 UNIT; Start 05/25/19 at 06:00 Diagnostic Test (Pha) (Accu-Chek) 1 ea Q6 XX Last administered on 05/29/19 17:23; Admin Dose 1 EA; Start 05/25/19 at 06:00 Diphenhydramine HCl (Benadryl) 25 mg Q6H PRN IV ITCHING; Start 05/26/19 at 13:30 Metoclopramide HCl (Reglan) 10 mg Q6H PRN IV NAUSEA AND/OR VOMITING Last administered on 05/27/19 12:12; Admin Dose 10 MG; Start 05/26/19 at 13:30 Ondansetron HCl (Zofran Inj) 4 mg Q6H PRN IV NAUSEA AND/OR VOMITING; Start 05/26/19 at 13:30 Pantoprazole (Protonix Iv) 40 mg DAILY@06 IV Last administered on 05/29/19 06:02; Admin Dose 40 MG; Start 05/27/19 at 06:00 Hydromorphone HCl (Dilaudid) 1 mg Q4H PRN IV .SEVERE PAIN 7-10 Last administered on 05/29/19 13:21; Admin Dose 1 MG; Start 05/27/19 at 14:00 Fat Emulsion Intravenous 250 ml @ 10.417 mls/ hr DAILY@16 IV Last administered on 7/7/19at 15:41; Admin Dose 10.417 MLS/HR; Start 05/27/19 at 16:00; Status Hold Duloxetine HCl (Cymbalta) 20 mg DAILY PO ; Start 06/02/19 at 09:00 LANIE HERNANDEZ NP May 29, 2019 17:28
[2019-05-29 19:50] VITALS: BP 103/55; PULSE 65; RESP 17
[2019-05-30] MEDS: CEPASTAT LOZENGE MT PRN ×5 (00:07→23:57)
[2019-05-30] MEDS: HYDROmorphONE 0.5 MG/0.5 ML SYG IV PRN ×5 (00:27→20:43)
[2019-05-30 02:00] VITALS: BP 120/68; PULSE 67; RESP 17
[2019-05-30] MEDS: PANTOPRAZOLE 40 MG INJ IV SCH (05:18)
[2019-05-30] MEDS: INSULIN ASPART [NOVOLOG] 3 ML PEN SC SCH ×2 (05:33→18:00)
[2019-05-30] MEDS: ACCU-CHEK XX SCH ×5 (05:34→23:43)
[2019-05-30] MEDS: ENOXAPARIN 40 MG/0.4 ML SYG SC SCH (08:05)
[2019-05-30 08:13] VITALS: BP 92/55; PULSE 48; RESP 18
[2019-05-30] MEDS ORDERED: INSULIN ASPART [NOVOLOG] 3 ML PEN SC SCH (09:00)
[2019-05-30] MEDS ORDERED: CEPASTAT LOZENGE MT PRN (10:30)
--- NOTE | 2019-05-30 12:01 | PN ---
Date/Time of Note Date/Time of Note DATE: 05/30/19 TIME: 11:59 Assessment/Plan VTE Prophylaxis Risk score (from Nsg)>0 risk: 2 SCD applied (from Nsg): Yes Pharmacological prophylaxis: LMWH Lines/Catheters IV Catheter Type (from Nrsg): PICC Line Central line still needed: Yes Urinary Cath still in place: No Assessment/Plan Hospital Course SUBJECTIVE: Remains on NGT to gravity. Continues to have abdominal pain. OBJECTIVE: Physical Exam General: Thin 33 year-old female lying in bed in no apparent distress. HEENT: Normocephalic, atraumatic. Eyes: Anicteric sclerae, conjunctivae clear. ENT: Nasal septum midline, oral mucosa is dry. Neck supple, no JVD noticed. Respiratory: Bilaterally diminished breath sounds. No use of accessory muscles o f respiration. No adventitious breath sounds. Cardiovascular: S1, S2 heard. Regular rate and rhythm. Abdomen: Soft and nondistended.. Laparoscopic surgical incisions healing well. Genitourinary: Deferred. Extremities: No cyanosis, no clubbing, no edema. Peripheral pulses palpable. Neurologic: Cranial nerves II through XII grossly intact. The patient is awake, alert, and oriented. Skin: Normal skin turgor. No skin rashes. 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 1. SMA syndrome.Abdominal pain. Status post laparoscopic duodenojejunostomy on 05/26/2019. NGT decompression. Initiation of diet as per general surgery. Continue TPN as per general surgery recommendations. 2. Moderate protein calorie malnutrition. Continue TPN. 3. Fluids, electrolytes, and nutrition. TPN. 4. DVT prophylaxis. Bilateral SCDs. SQ Lovenox. 5. Plan. Continue pain control. Initiation of diet as per surgery. The patient was seen in collaboration with Dr. Belle. Result Diagram: 05/29/19 0459 05/30/19 0512 Results 24hrs Laboratory Tests Test 05/29/19 12:09 05/29/19 17:22 05/29/19 23:34 05/30/19 05:12 Bedside Glucose 111 107 82 Sodium Level 142 Potassium Level 3.9 Chloride Level 104 Carbon Dioxide Level 30 Anion Gap 8 Blood Urea Nitrogen 17 Creatinine 0.60 Est Glomerular Filtrat > 60 Rate mL/min Glucose Level 91 Calcium Level 8.7 Phosphorus Level 4.4 Magnesium Level 1.9 Triglycerides Level 108 Test 05/30/19 05:19 Bedside Glucose 86 Exam/Review of Systems Exam Vitals Vital Signs Date Temp Pulse Resp B/P (MAP) Pulse Ox O2 O2 Flow FiO2 Time Delivery Rate 05/30/19 97.6 48 18 92/55 (67) 98 08:13 05/29/19 Room Air 19:50 05/26/19 6.0 13:48 Intake and Output 05/29/19 05/29/19 05/30/19 1515:00 23:00 07:00 IntakeIntake Total 1825 ml 525 ml OutputOutput Total 400 ml 340 ml 235 ml BalanceBalance -400 ml 1485 ml 290 ml Results Results 24hrs Laboratory Tests Test 05/29/19 12:09 05/29/19 17:22 05/29/19 23:34 05/30/19 05:12 Bedside Glucose 111 107 82 Sodium Level 142 Potassium Level 3.9 Chloride Level 104 Carbon Dioxide Level 30 Anion Gap 8 Blood Urea Nitrogen 17 Creatinine 0.60 Est Glomerular Filtrat > 60 Rate mL/min Glucose Level 91 Calcium Level 8.7 Phosphorus Level 4.4 Magnesium Level 1.9 Triglycerides Level 108 Test 05/30/19 05:19 Bedside Glucose 86 Medications Medication Current Medications IV Flush (NS 3 ml) 3 ml PER PROTOCOL IV ; Start 05/22/19 at 14:00 Total Parenteral Nutrition 1,000 ml @ 70 mls/hr [id number] IV Last administered on 05/29/19at 21:38; Admin Dose 70 MLS/HR; Start 05/23/19 at 16:00 IV Flush (NS 10 ml) 10 ml PRN PRN IV IV PROTOCOL; Start 05/23/19 at 11:00 Miscellaneous Information 1 ea NOTE XX ; Start 05/24/19 at 02:30 Glucose (Glutose) 15 gm Q15M PRN PO DECREASED GLUCOSE; Start 05/24/19 at 02:30 Glucose (Glutose) 22.5 gm Q15M PRN PO DECREASED GLUCOSE; Start 05/24/19 at 02:30 Dextrose (D50w Syringe) 25 ml Q15M PRN IV DECREASED GLUCOSE Last administered on 05/24/19at 22:08; Admin Dose 25 ML; Start 05/24/19 at 02:30 Dextrose (D50w Syringe) 50 ml Q15M PRN IV DECREASED GLUCOSE; Start 05/24/19 at 02:30 Glucagon (Glucagen) 1 mg Q15M PRN IM DECREASED GLUCOSE; Start 05/24/19 at 02:30 Glucose (Glutose) 15 gm Q15M PRN BUCCAL DECREASED GLUCOSE; Start 05/24/19 at 02:30 Enoxaparin Sodium (Lovenox) 40 mg DAILY SC Last administered on 05/30/19at 08:05; Admin Dose 40 MG; Start 05/25/19 at 09:00 Diagnostic Test (Pha) (Accu-Chek) 1 ea Q6 XX Last administered on 05/29/19at 17:23; Admin Dose 1 EA; Start 05/25/19 at 06:00 Diphenhydramine HCl (Benadryl) 25 mg Q6H PRN IV ITCHING; Start 05/26/19 at 13:30 Metoclopramide HCl (Reglan) 10 mg Q6H PRN IV NAUSEA AND/OR VOMITING Last administered on 05/27/19at 12:12; Admin Dose 10 MG; Start 05/26/19 at 13:30 Ondansetron HCl (Zofran Inj) 4 mg Q6H PRN IV NAUSEA AND/OR VOMITING; Start 05/26/19 at 13:30 Pantoprazole (Protonix Iv) 40 mg DAILY@06 IV Last administered on 05/30/19at 05:18; Admin Dose 40 MG; Start 05/27/19 at 06:00 Hydromorphone HCl (Dilaudid) 1 mg Q4H PRN IV .SEVERE PAIN 7-10 Last administered on 05/30/19at 04:33; Admin Dose 1 MG; Start 05/27/19 at 14:00 Fat Emulsion Intravenous 250 ml @ 10.417 mls/ hr DAILY@16 IV Last administered on 05/28/19at 15:41; Admin Dose 10.417 MLS/HR; Start 05/27/19 at 16:00 Duloxetine HCl (Cymbalta) 20 mg DAILY PO ; Start 06/02/19 at 09:00 Phenol (Cepastat Lozenge) 1 lozenge Q1H PRN MT SORE THROAT Last administered on 05/30/19at 10:58; Admin Dose 1 LOZENGE; Start 05/30/19 at 00:00 Insulin Aspart (Novolog Insulin Pen) NOVOLOG *MILD* ALGORI... Q12 SC ; Start 05/30/19 at 18:00 Phenol (Cepastat Lozenge) 1 lozenge Q1H PRN MT SORE THROAT; Start 05/30/19 at 10:30 LANIE HERNANDEZ NP May 30, 2019 12:01
--- NOTE | 2019-05-30 13:13 | PN ---
Date/Time of Note Date/Time of Note DATE: 05/30/19 TIME: 13:12 Assessment/Plan Lines/Catheters IV Catheter Type (from Nrsg): PICC Line Nunez in Place (from Nrsg): No Subjective 24 Hr Interval Summary Patient is postoperative day 4 after duodenojejunostomy for SMA syndrome. Has high relatively output of bilious from her NG tube up to 400 cc daily. REGINA minimal amount serosanguineous removed. Passing gas but she did not have any bowel movement yet. Abdomen is soft. Plan is to switch NG tube to gravity instead of suction. Repeat KUB. Continue TPN. Exam/Review of Systems Vital Signs Vitals Vital Signs Date Temp Pulse Resp B/P (MAP) Pulse Ox O2 O2 Flow FiO2 Time Delivery Rate 05/30/19 97.6 48 18 92/55 (67) 98 08:13 05/29/19 Room Air 19:50 05/26/19 6.0 13:48 Intake and Output 05/29/19 05/29/19 05/30/19 1515:00 23:00 07:00 IntakeIntake Total 1825 ml 525 ml OutputOutput Total 400 ml 340 ml 235 ml BalanceBalance -400 ml 1485 ml 290 ml Results Result Diagram: 05/29/19 0459 05/30/19 0512 ELLYN BURGESS MD May 30, 2019 13:13
[2019-05-30] MEDS: TPN 1,000 ML IV SCH (13:57)
[2019-05-30 14:10] VITALS: BP 104/57; PULSE 62; RESP 18
[2019-05-30] MEDS: FAT EMULSION 20% 250 ML IV SCH (15:12)
[2019-05-30 20:00] VITALS: BP 116/71; PULSE 63; RESP 19
[2019-05-31] MEDS: HYDROmorphONE 0.5 MG/0.5 ML SYG IV PRN ×3 (00:59→09:04)
[2019-05-31] MEDS: TPN 1,000 ML IV SCH ×4 (01:54→19:56)
[2019-05-31 02:00] VITALS: BP 111/62; PULSE 80; RESP 20
[2019-05-31] MEDS: PANTOPRAZOLE 40 MG INJ IV SCH (05:00)
[2019-05-31] MEDS: ACCU-CHEK XX SCH ×4 (06:00→23:28)
[2019-05-31] MEDS: INSULIN ASPART [NOVOLOG] 3 ML PEN SC SCH ×3 (06:00→20:06)
[2019-05-31 07:49] VITALS: BP 93/59; PULSE 60; RESP 16
[2019-05-31 07:58] VITALS: BP 107/55; PULSE 62
[2019-05-31] MEDS: CEPASTAT LOZENGE MT PRN ×4 (08:02→19:56)
[2019-05-31] MEDS: ENOXAPARIN 40 MG/0.4 ML SYG SC SCH (08:07)
[2019-05-31 14:00] VITALS: BP 103/58; PULSE 63; RESP 16
--- NOTE | 2019-05-31 14:35 | PN ---
Date/Time of Note Date/Time of Note DATE: 05/31/19 TIME: 14:31 Assessment/Plan VTE Prophylaxis Risk score (from Nsg)>0 risk: 6 SCD applied (from Nsg): Yes Pharmacological prophylaxis: LMWH Lines/Catheters IV Catheter Type (from Nrsg): PICC Line Central line still needed: Yes Urinary Cath still in place: No Assessment/Plan Hospital Course SUBJECTIVE: NGT discontinued. Continues to have abdominal pain. Started on clears. Complains of sore throat. OBJECTIVE: Physical Exam General: Thin 33 year-old female lying in bed in no apparent distress. HEENT: Normocephalic, atraumatic. Eyes: Anicteric sclerae, conjunctivae clear. ENT: Nasal septum midline, oral mucosa is dry. Neck supple, no JVD noticed. Respiratory: Bilaterally diminished breath sounds. No use of accessory muscles of respiration. No adventitious breath sounds. Cardiovascular: S1, S2 heard. Regular rate and rhythm. Abdomen: Soft and nondistended.. Laparoscopic surgical incisions healing well. Genitourinary: Deferred. Extremities: No cyanosis, no clubbing, no edema. Peripheral pulses palpable. Neurologic: Cranial nerves II through XII grossly intact. The patient is awake, alert, and oriented. Skin: Normal skin turgor. No skin rashes. 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 1. SMA syndrome.Abdominal pain. Status post laparoscopic duodenojejunostomy on 05/26/2019. Continue TPN as per general surgery recommendations. Started on clears on 05/31/2019. 2. Moderate protein calorie malnutrition. Continue TPN. 3. Depression. Continue Cymbalta. 4. Fluids, electrolytes, and nutrition. TPN. Clear liquids. 5. DVT prophylaxis. Bilateral SCDs. SQ Lovenox. 6. Plan. Continue pain control. Advancement of diet as per surgery. The patient was seen in collaboration with Dr. Belle. Result Diagram: 05/29/19 0459 05/31/19 0439 Results 24hrs Laboratory Tests Test 05/30/19 18:10 05/31/19 04:39 05/31/19 04:59 05/31/19 08:08 Bedside Glucose 98 98 114 Sodium Level 141 Potassium Level 3.7 Chloride Level 104 Carbon Dioxide Level 30 Anion Gap 7 Blood Urea Nitrogen 16 Creatinine 0.57 Est Glomerular > 60 Filtrat Rate mL/min Glucose Level 80 Calcium Level 8.8 Phosphorus Level 3.4 Magnesium Level 2.0 Exam/Review of Systems Exam Vitals Vital Signs Date Temp Pulse Resp B/P (MAP) Pulse Ox O2 O2 Flow FiO2 Time Delivery Rate 05/31/19 98.7 63 16 103/58 99 14:00 (73) 05/30/19 Room Air 14:10 Intake and Output 05/30/19 05/30/19 05/31/19 1515:00 23:00 07:00 IntakeIntake Total 475 ml 242 ml BalanceBalance 475 ml 242 ml Results Results 24hrs Laboratory Tests Test 05/30/19 18:10 05/31/19 04:39 05/31/19 04:59 05/31/19 08:08 Bedside Glucose 98 98 114 Sodium Level 141 Potassium Level 3.7 Chloride Level 104 Carbon Dioxide Level 30 Anion Gap 7 Blood Urea Nitrogen 16 Creatinine 0.57 Est Glomerular > 60 Filtrat Rate mL/min Glucose Level 80 Calcium Level 8.8 Phosphorus Level 3.4 Magnesium Level 2.0 Medications Medication Current Medications IV Flush (NS 3 ml) 3 ml PER PROTOCOL IV ; Start 05/22/19 at 14:00 Total Parenteral Nutrition 1,000 ml @ 70 mls/hr [id number] IV Last administered on 05/31/19at 05:01; Admin Dose 70 MLS/HR; Start 05/23/19 at 16:00 IV Flush (NS 10 ml) 10 ml PRN PRN IV IV PROTOCOL; Start 05/23/19 at 11:00 Miscellaneous Information 1 ea NOTE XX ; Start 05/24/19 at 02:30 Glucose (Glutose) 15 gm Q15M PRN PO DECREASED GLUCOSE; Start 05/24/19 at 02:30 Glucose (Glutose) 22.5 gm Q15M PRN PO DECREASED GLUCOSE; Start 05/24/19 at 02:30 Dextrose (D50w Syringe) 25 ml Q15M PRN IV DECREASED GLUCOSE Last administered on 05/24/19at 22:08; Admin Dose 25 ML; Start 05/24/19 at 02:30 Dextrose (D50w Syringe) 50 ml Q15M PRN IV DECREASED GLUCOSE; Start 05/24/19 at 02:30 Glucagon (Glucagen) 1 mg Q15M PRN IM DECREASED GLUCOSE; Start 05/24/19 at 02:30 Glucose (Glutose) 15 gm Q15M PRN BUCCAL DECREASED GLUCOSE; Start 05/24/19 at 02:30 Enoxaparin Sodium (Lovenox) 40 mg DAILY SC Last administered on 05/31/19at 08:07; Admin Dose 40 MG; Start 05/25/19 at 09:00 Diagnostic Test (Pha) (Accu-Chek) 1 ea Q6 XX Last administered on 05/29/19at 17:23; Admin Dose 1 EA; Start 05/25/19 at 06:00 Diphenhydramine HCl (Benadryl) 25 mg Q6H PRN IV ITCHING; Start 05/26/19 at 13:30 Metoclopramide HCl (Reglan) 10 mg Q6H PRN IV NAUSEA AND/OR VOMITING Last administered on 05/27/19at 12:12; Admin Dose 10 MG; Start 05/26/19 at 13:30 Ondansetron HCl (Zofran Inj) 4 mg Q6H PRN IV NAUSEA AND/OR VOMITING; Start 05/26/19 at 13:30 Pantoprazole (Protonix Iv) 40 mg DAILY@06 IV Last administered on 05/31/19at 05:00; Admin Dose 40 MG; Start 05/27/19 at 06:00 Fat Emulsion Intravenous 250 ml @ 10.417 mls/ hr DAILY@16 IV Last administered on 05/30/19at 15:12; Admin Dose 10.417 MLS/HR; Start 05/27/19 at 16:00 Duloxetine HCl (Cymbalta) 20 mg DAILY PO ; Start 06/02/19 at 09:00 Phenol (Cepastat Lozenge) 1 lozenge Q1H PRN MT SORE THROAT Last administered on 05/31/19at 09:04; Admin Dose 1 LOZENGE; Start 05/30/19 at 00:00 Insulin Aspart (Novolog Insulin Pen) NOVOLOG *MILD* ALGORI... Q12 SC ; Start 05/30/19 at 18:00 Phenol (Cepastat Lozenge) 1 lozenge Q1H PRN MT SORE THROAT; Start 05/30/19 at 10:30 Hydromorphone HCl (Dilaudid) 1 mg Q4H PRN IV .SEVERE PAIN 7-10; Start 05/31/19 at 13:30 LANIE HERNANDEZ NP May 31, 2019 14:35
[2019-05-31] MEDS: HYDROmorphONE 1 MG/ML SYG IV PRN ×2 (15:19→19:56)
[2019-05-31] MEDS: FAT EMULSION 20% 250 ML IV SCH (15:26)
--- NOTE | 2019-05-31 17:06 | PN ---
Date/Time of Note Date/Time of Note DATE: 05/31/19 TIME: 17:05 Assessment/Plan Lines/Catheters IV Catheter Type (from Nrs): PICC Line Nunez in Place (from Nrs): No Assessment/Plan Assessment/Plan Day postoperative 5 after duodenojejunostomy for SMA syndrome. Patient is making slow progress. Continue monitor advance diet slowly. Possibly wean TPN tomorrow. Subjective 24 Hr Interval Summary Patient is doing some progress. Continues to have flatus, no bowel movements yet. NG tube output was minimal and it was removed. Patient feels much better after NG tube removal. Started with clears that she tolerates yet. Feeding: advancing diet Exam/Review of Systems Vital Signs Vitals Vital Signs Date Temp Pulse Resp B/P (MAP) Pulse Ox O2 O2 Flow FiO2 Time Delivery Rate 05/31/19 98.7 63 16 103/58 99 14:00 (73) 05/30/19 Room Air 14:10 Intake and Output 05/30/19 05/30/19 05/31/19 1515:00 23:00 07:00 IntakeIntake Total 475 ml 242 ml BalanceBalance 475 ml 242 ml Results Result Diagram: 05/29/19 0459 05/31/19 0439 ELLYN BURGESS MD May 31, 2019 17:06
[2019-05-31 19:38] VITALS: BP 103/60; PULSE 67; RESP 19
[2019-06-01] MEDS: HYDROmorphONE 1 MG/ML SYG IV PRN ×5 (00:03→22:43)
[2019-06-01] MEDS ORDERED: ALTEPLASE (CATHFLO) 2 MG INJ CATHETER ONE (01:00)
[2019-06-01] MEDS: HYDROmorphONE 0.5 MG/0.5 ML SYG IV PRN ×2 (01:17→18:29)
[2019-06-01 02:10] VITALS: BP_SYST 99; BP_DIAS 52; BP_DIAS 62; PULSE 62; PULSE 93; RESP 18
[2019-06-01] MEDS: PANTOPRAZOLE 40 MG INJ IV SCH (05:35)
[2019-06-01] MEDS: ACCU-CHEK XX SCH ×4 (05:43→23:41)
[2019-06-01 08:04] VITALS: BP 96/52; PULSE 65; RESP 18
[2019-06-01] MEDS: INSULIN ASPART [NOVOLOG] 3 ML PEN SC SCH ×2 (08:34→21:00)
[2019-06-01] MEDS: ENOXAPARIN 40 MG/0.4 ML SYG SC SCH (08:38)
[2019-06-01] MEDS: TPN 1,000 ML IV SCH (12:10)
--- NOTE | 2019-06-01 12:16 | PN ---
Date/Time of Note Date/Time of Note DATE: 06/01/19 TIME: 12:15 Assessment/Plan VTE Prophylaxis Risk score (from Ns)>0 risk: 6 SCD applied (from Ns): No SCD contraindicated: other Pharmacological prophylaxis: LMWH Lines/Catheters IV Catheter Type (from Nrs): PICC Line Central line still needed: Yes Urinary Cath still in place: No Assessment/Plan Hospital Course SUBJECTIVE: Continues to have abdominal pain. On clears. OBJECTIVE: Physical Exam General: Thin 33 year-old female lying in bed in no apparent distress. HEENT: Normocephalic, atraumatic. Eyes: Anicteric sclerae, conjunctivae clear. ENT: Nasal septum midline, oral mucosa is dry. Neck supple, no JVD noticed. Respiratory: Bilaterally diminished breath sounds. No use of accessory muscles of respiration. No adventitious breath sounds. Cardiovascular: S1, S2 heard. Regular rate and rhythm. Abdomen: Soft and nondistended.. Laparoscopic surgical incisions healing well. Genitourinary: Deferred. Extremities: No cyanosis, no clubbing, no edema. Peripheral pulses palpable. Neurologic: Cranial nerves II through XII grossly intact. The patient is awake, alert, and oriented. Skin: Normal skin turgor. No skin rashes. 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 1. SMA syndrome.Abdominal pain. Status post laparoscopic duodenojejunostomy on 05/26/2019. Continue TPN as per general surgery recommendations. Started on clears on 05/31/2019. 2. Moderate protein calorie malnutrition. Continue TPN. 3. Depression. Continue Cymbalta. 4. Fluids, electrolytes, and nutrition. TPN. Clear liquids. 5. DVT prophylaxis. Bilateral SCDs. SQ Lovenox. 6. Plan. Continue pain control. Advancement of diet as per surgery. The patient was seen in collaboration with Dr. Belle. Result Diagram: 06/01/19 0423 06/01/19 0423 Results 24hrs Laboratory Tests Test 05/31/19 20:05 06/01/19 04:23 06/01/19 08:29 Bedside Glucose 79 141 White Blood Count 6.6 Red Blood Count 2.96 L Hemoglobin 8.6 L Hematocrit 25.2 L Mean Corpuscular Volume 85.1 Mean Corpuscular Hemoglobin 29.1 Mean Corpuscular Hemoglobin Concent 34.1 Red Cell Distribution Width 11.9 Platelet Count 204 Mean Platelet Volume 11.1 H Immature Granulocytes % 0.300 Neutrophils % 51.2 Lymphocytes % 31.0 Monocytes % 8.7 Eosinophils % 8.0 H Basophils % 0.8 Nucleated Red Blood Cells % 0.0 Immature Granulocytes # 0.020 Neutrophils # 3.4 Lymphocytes # 2.1 Monocytes # 0.6 Eosinophils # 0.5 Basophils # 0.1 Nucleated Red Blood Cells # 0.0 Sodium Level 141 Potassium Level 3.8 Chloride Level 103 Carbon Dioxide Level 30 Anion Gap 8 Blood Urea Nitrogen 13 Creatinine 0.56 Est Glomerular Filtrat Rate mL/min > 60 Glucose Level 105 Calcium Level 8.5 Phosphorus Level 3.9 Magnesium Level 1.9 Total Bilirubin 0.6 Direct Bilirubin 0.00 Indirect Bilirubin 0.6 Aspartate Amino Transf (AST/SGOT) 45 Alanine Aminotransferase (ALT/SGPT) 81 H Alkaline Phosphatase 55 Total Protein 6.3 Albumin 3.3 Globulin 3.00 Albumin/Globulin Ratio 1.10 Exam/Review of Systems Exam Vitals Vital Signs Date Temp Pulse Resp B/P (MAP) Pulse Ox O2 O2 Flow FiO2 Time Delivery Rate 06/01/19 98.2 65 18 96/52 (67) 98 Room Air 08:04 Intake and Output 05/31/19 05/31/19 06/01/19 1515:00 23:00 07:00 IntakeIntake Total 1918 ml 692.44 ml OutputOutput Total 20 ml BalanceBalance -20 ml 1918 ml 692.44 ml Results Results 24hrs Laboratory Tests Test 05/31/19 20:05 06/01/19 04:23 06/01/19 08:29 Bedside Glucose 79 141 White Blood Count 6.6 Red Blood Count 2.96 L Hemoglobin 8.6 L Hematocrit 25.2 L Mean Corpuscular Volume 85.1 Mean Corpuscular Hemoglobin 29.1 Mean Corpuscular Hemoglobin Concent 34.1 Red Cell Distribution Width 11.9 Platelet Count 204 Mean Platelet Volume 11.1 H Immature Granulocytes % 0.300 Neutrophils % 51.2 Lymphocytes % 31.0 Monocytes % 8.7 Eosinophils % 8.0 H Basophils % 0.8 Nucleated Red Blood Cells % 0.0 Immature Granulocytes # 0.020 Neutrophils # 3.4 Lymphocytes # 2.1 Monocytes # 0.6 Eosinophils # 0.5 Basophils # 0.1 Nucleated Red Blood Cells # 0.0 Sodium Level 141 Potassium Level 3.8 Chloride Level 103 Carbon Dioxide Level 30 Anion Gap 8 Blood Urea Nitrogen 13 Creatinine 0.56 Est Glomerular Filtrat Rate mL/min > 60 Glucose Level 105 Calcium Level 8.5 Phosphorus Level 3.9 Magnesium Level 1.9 Total Bilirubin 0.6 Direct Bilirubin 0.00 Indirect Bilirubin 0.6 Aspartate Amino Transf (AST/SGOT) 45 Alanine Aminotransferase (ALT/SGPT) 81 H Alkaline Phosphatase 55 Total Protein 6.3 Albumin 3.3 Globulin 3.00 Albumin/Globulin Ratio 1.10 Medications Medication Current Medications IV Flush (NS 3 ml) 3 ml PER PROTOCOL IV ; Start 05/22/19 at 14:00 Total Parenteral Nutrition 1,000 ml @ 70 mls/hr [id number] IV Last administered on 05/31/19at 19:56; Admin Dose 70 MLS/HR; Start 05/23/19 at 16:00 IV Flush (NS 10 ml) 10 ml PRN PRN IV IV PROTOCOL; Start 05/23/19 at 11:00 Miscellaneous Information 1 ea NOTE XX ; Start 05/24/19 at 02:30 Glucose (Glutose) 15 gm Q15M PRN PO DECREASED GLUCOSE; Start 05/24/19 at 02:30 Glucose (Glutose) 22.5 gm Q15M PRN PO DECREASED GLUCOSE; Start 05/24/19 at 02:30 Dextrose (D50w Syringe) 25 ml Q15M PRN IV DECREASED GLUCOSE Last administered on 05/24/19at 22:08; Admin Dose 25 ML; Start 05/24/19 at 02:30 Dextrose (D50w Syringe) 50 ml Q15M PRN IV DECREASED GLUCOSE; Start 05/24/19 at 02:30 Glucagon (Glucagen) 1 mg Q15M PRN IM DECREASED GLUCOSE; Start 05/24/19 at 02:30 Glucose (Glutose) 15 gm Q15M PRN BUCCAL DECREASED GLUCOSE; Start 05/24/19 at 02:30 Enoxaparin Sodium (Lovenox) 40 mg DAILY SC Last administered on 06/01/19at 08:38; Admin Dose 40 MG; Start 05/25/19 at 09:00 Diagnostic Test (Pha) (Accu-Chek) 1 ea Q6 XX Last administered on 05/29/19 17:23; Admin Dose 1 EA; Start 05/25/19 at 06:00 Diphenhydramine HCl (Benadryl) 25 mg Q6H PRN IV ITCHING; Start 05/26/19 at 13:30 Metoclopramide HCl (Reglan) 10 mg Q6H PRN IV NAUSEA AND/OR VOMITING Last administered on 05/27/19at 12:12; Admin Dose 10 MG; Start 05/26/19 at 13:30 Ondansetron HCl (Zofran Inj) 4 mg Q6H PRN IV NAUSEA AND/OR VOMITING; Start 05/26/19 at 13:30 Pantoprazole (Protonix Iv) 40 mg DAILY@06 IV Last administered on 06/01/19 05:35; Admin Dose 40 MG; Start 05/27/19 at 06:00 Fat Emulsion Intravenous 250 ml @ 10.417 mls/ hr DAILY@16 IV Last administered on 05/31/19at 15:26; Admin Dose 10.417 MLS/HR; Start 05/27/19 at 16:00 Duloxetine HCl (Cymbalta) 20 mg DAILY PO ; Start 06/02/19 at 09:00 Phenol (Cepastat Lozenge) 1 lozenge Q1H PRN MT SORE THROAT Last administered on 05/31/19at 19:56; Admin Dose 1 LOZENGE; Start 05/30/19 at 00:00 Insulin Aspart (Novolog Insulin Pen) NOVOLOG *MILD* ALGORI... Q12 SC ; Start 05/30/19 at 18:00 Phenol (Cepastat Lozenge) 1 lozenge Q1H PRN MT SORE THROAT; Start 05/30/19 at 10:30 Hydromorphone HCl (Dilaudid) 1 mg Q4H PRN IV .SEVERE PAIN 7-10 Last administered on 06/01/19at 08:36; Admin Dose 1 MG; Start 05/31/19 at 13:30 Hydromorphone HCl (Dilaudid) 0.5 mg Q4H PRN IV SEVERE PAIN LEVEL 7-10 Last administered on 06/01/19 01:17; Admin Dose 0.5 MG; Start 06/01/19 at 01:30 LANIE HERNANDEZ NP Jun 01, 2019 12:16
[2019-06-01 14:06] VITALS: BP 106/64; PULSE 81; RESP 18
[2019-06-01] MEDS: FAT EMULSION 20% 250 ML IV SCH (14:19)
[2019-06-01 20:05] VITALS: BP 98/46; PULSE 67; RESP 17
[2019-06-02 02:00] VITALS: BP 111/60; PULSE 70; RESP 18
[2019-06-02] MEDS: HYDROmorphONE 1 MG/ML SYG IV PRN ×4 (02:38→23:00)
[2019-06-02] MEDS: TPN 1,000 ML IV SCH ×2 (03:38→20:34)
[2019-06-02] MEDS: ACCU-CHEK XX SCH ×3 (04:56→17:11)
[2019-06-02] MEDS: PANTOPRAZOLE 40 MG INJ IV SCH (05:05)
[2019-06-02 07:51] VITALS: BP 94/56; PULSE 57; RESP 18
[2019-06-02] MEDS: DULOXETINE 20 MG CAP DR PO SCH (08:27)
[2019-06-02] MEDS: ENOXAPARIN 40 MG/0.4 ML SYG SC SCH (08:32)
[2019-06-02] MEDS: INSULIN ASPART [NOVOLOG] 3 ML PEN SC SCH ×2 (08:33→21:00)
--- NOTE | 2019-06-02 14:18 | PN ---
Date/Time of Note Date/Time of Note DATE: 06/02/19 TIME: 14:17 Assessment/Plan VTE Prophylaxis Risk score (from Ns)>0 risk: 6 SCD applied (from Ns): No SCD contraindicated: other Pharmacological prophylaxis: LMWH Lines/Catheters IV Catheter Type (from Nrs): PICC Line Central line still needed: Yes Urinary Cath still in place: No Assessment/Plan Hospital Course SUBJECTIVE: Continues to have abdominal pain. On clears. Was complaining of some dizziness. OBJECTIVE: Physical Exam General: Thin 33 year-old female lying in bed in no apparent distress. HEENT: Normocephalic, atraumatic. Eyes: Anicteric sclerae, conjunctivae clear. ENT: Nasal septum midline, oral mucosa is dry. Neck supple, no JVD noticed. Respiratory: Bilaterally diminished breath sounds. No use of accessory muscles of respiration. No adventitious breath sounds. Cardiovascular: S1, S2 heard. Regular rate and rhythm. Abdomen: Soft and nondistended.. Laparoscopic surgical incisions healing well. Genitourinary: Deferred. Extremities: No cyanosis, no clubbing, no edema. Peripheral pulses palpable. Neurologic: Cranial nerves II through XII grossly intact. The patient is awake, alert, and oriented. Skin: Normal skin turgor. No skin rashes. 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 1. SMA syndrome.Abdominal pain. Status post laparoscopic duodenojejunostomy on 05/26/2019. Continue TPN as per general surgery recommendations. Started on clears on 05/31/2019. 2. Moderate protein calorie malnutrition. Continue TPN. 3. Depression. Continue Cymbalta. 4. Fluids, electrolytes, and nutrition. TPN. Clear liquids. 5. DVT prophylaxis. Bilateral SCDs. SQ Lovenox. 6. Plan. Continue pain control. Advancement of diet as per surgery. The patient was seen in collaboration with Dr. Belle. Result Diagram: 06/02/19 0502 06/02/19 0502 Results 24hrs Laboratory Tests Test 06/01/19 17:08 06/01/19 21:02 06/02/19 05:02 06/02/19 08:29 Bedside Glucose 122 105 133 White Blood Count 5.8 Red Blood Count 3.12 L Hemoglobin 8.9 L Hematocrit 27.0 L Mean Corpuscular 86.5 Volume Mean Corpuscular 28.5 L Hemoglobin Mean Corpuscular 33.0 Hemoglobin Concent Red Cell 12.0 Distribution Width Platelet Count 200 Mean Platelet Volume 11.0 H Immature 0.200 Granulocytes % Neutrophils % 44.9 Lymphocytes % 33.8 Monocytes % 11.1 H Eosinophils % 9.1 H Basophils % 0.9 Nucleated Red Blood 0.0 Cells % Immature 0.010 Granulocytes # Neutrophils # 2.6 Lymphocytes # 2.0 Monocytes # 0.7 Eosinophils # 0.5 Basophils # 0.1 Nucleated Red Blood 0.0 Cells # Sodium Level 141 Potassium Level 4.1 Chloride Level 105 Carbon Dioxide Level 30 Anion Gap 6 Blood Urea Nitrogen 11 Creatinine 0.60 Est Glomerular > 60 Filtrat Rate mL/min Glucose Level 92 Calcium Level 8.5 Phosphorus Level 3.4 Magnesium Level 2.0 Total Bilirubin 0.4 Direct Bilirubin 0.00 Indirect Bilirubin 0.4 Aspartate Amino 38 Transf (AST/SGOT) Alanine 76 H Aminotransferase (AL T/SGPT) Alkaline Phosphatase 56 Total Protein 6.4 Albumin 3.3 Globulin 3.10 Albumin/Globulin 1.06 Ratio Test 06/02/19 12:12 Bedside Glucose 162 Exam/Review of Systems Exam Vitals Vital Signs Date Temp Pulse Resp B/P (MAP) Pulse Ox O2 O2 Flow FiO2 Time Delivery Rate 06/02/19 98.0 57 18 94/56 (69) 100 07:51 06/02/19 Room Air 02:00 Intake and Output 06/01/19 06/01/19 06/02/19 1515:00 23:00 07:00 IntakeIntake Total 797.56 ml 1170.78 ml 440 ml BalanceBalance 797.56 ml 1170.78 ml 440 ml Results Results 24hrs Laboratory Tests Test 06/01/19 17:08 06/01/19 21:02 06/02/19 05:02 06/02/19 08:29 Bedside Glucose 122 105 133 White Blood Count 5.8 Red Blood Count 3.12 L Hemoglobin 8.9 L Hematocrit 27.0 L Mean Corpuscular 86.5 Volume Mean Corpuscular 28.5 L Hemoglobin Mean Corpuscular 33.0 Hemoglobin Concent Red Cell 12.0 Distribution Width Platelet Count 200 Mean Platelet Volume 11.0 H Immature 0.200 Granulocytes % Neutrophils % 44.9 Lymphocytes % 33.8 Monocytes % 11.1 H Eosinophils % 9.1 H Basophils % 0.9 Nucleated Red Blood 0.0 Cells % Immature 0.010 Granulocytes # Neutrophils # 2.6 Lymphocytes # 2.0 Monocytes # 0.7 Eosinophils # 0.5 Basophils # 0.1 Nucleated Red Blood 0.0 Cells # Sodium Level 141 Potassium Level 4.1 Chloride Level 105 Carbon Dioxide Level 30 Anion Gap 6 Blood Urea Nitrogen 11 Creatinine 0.60 Est Glomerular > 60 Filtrat Rate mL/min Glucose Level 92 Calcium Level 8.5 Phosphorus Level 3.4 Magnesium Level 2.0 Total Bilirubin 0.4 Direct Bilirubin 0.00 Indirect Bilirubin 0.4 Aspartate Amino 38 Transf (AST/SGOT) Alanine 76 H Aminotransferase (AL T/SGPT) Alkaline Phosphatase 56 Total Protein 6.4 Albumin 3.3 Globulin 3.10 Albumin/Globulin 1.06 Ratio Test 06/02/19 12:12 Bedside Glucose 162 Medications Medication Current Medications IV Flush (NS 3 ml) 3 ml PER PROTOCOL IV ; Start 05/22/19 at 14:00 Total Parenteral Nutrition 1,000 ml @ 70 mls/hr [id number] IV Last administered on 06/02/19at 03:38; Admin Dose 70 MLS/HR; Start 05/23/19 at 16:00 IV Flush (NS 10 ml) 10 ml PRN PRN IV IV PROTOCOL; Start 05/23/19 at 11:00 Miscellaneous Information 1 ea NOTE XX ; Start 05/24/19 at 02:30 Glucose (Glutose) 15 gm Q15M PRN PO DECREASED GLUCOSE; Start 05/24/19 at 02:30 Glucose (Glutose) 22.5 gm Q15M PRN PO DECREASED GLUCOSE; Start 05/24/19 at 02:30 Dextrose (D50w Syringe) 25 ml Q15M PRN IV DECREASED GLUCOSE Last administered on 05/24/19at 22:08; Admin Dose 25 ML; Start 05/24/19 at 02:30 Dextrose (D50w Syringe) 50 ml Q15M PRN IV DECREASED GLUCOSE; Start 05/24/19 at 02:30 Glucagon (Glucagen) 1 mg Q15M PRN IM DECREASED GLUCOSE; Start 05/24/19 at 02:30 Glucose (Glutose) 15 gm Q15M PRN BUCCAL DECREASED GLUCOSE; Start 05/24/19 at 02:30 Enoxaparin Sodium (Lovenox) 40 mg DAILY SC Last administered on 06/02/19 08:32; Admin Dose 40 MG; Start 05/25/19 at 09:00 Diagnostic Test (Pha) (Accu-Chek) 1 ea Q6 XX Last administered on 05/29/19 17:23; Admin Dose 1 EA; Start 05/25/19 at 06:00 Diphenhydramine HCl (Benadryl) 25 mg Q6H PRN IV ITCHING; Start 05/26/19 at 13:30 Metoclopramide HCl (Reglan) 10 mg Q6H PRN IV NAUSEA AND/OR VOMITING Last administered on 05/27/19 12:12; Admin Dose 10 MG; Start 05/26/19 at 13:30 Ondansetron HCl (Zofran Inj) 4 mg Q6H PRN IV NAUSEA AND/OR VOMITING Last administered on 06/01/19 14:13; Admin Dose 4 MG; Start 05/26/19 at 13:30 Pantoprazole (Protonix Iv) 40 mg DAILY@06 IV Last administered on 06/02/19 05:05; Admin Dose 40 MG; Start 05/27/19 at 06:00 Fat Emulsion Intravenous 250 ml @ 10.417 mls/ hr DAILY@16 IV Last administered on 06/01/19 14:19; Admin Dose 10.417 MLS/HR; Start 05/27/19 at 16:00 Duloxetine HCl (Cymbalta) 20 mg DAILY PO Last administered on 06/02/19 08:27; Admin Dose 20 MG; Start 06/02/19 at 09:00 Phenol (Cepastat Lozenge) 1 lozenge Q1H PRN MT SORE THROAT Last administered on 05/31/19 19:56; Admin Dose 1 LOZENGE; Start 05/30/19 at 00:00 Insulin Aspart (Novolog Insulin Pen) NOVOLOG *MILD* ALGORI... Q12 SC ; Start 05/30/19 at 18:00 Hydromorphone HCl (Dilaudid) 1 mg Q4H PRN IV .SEVERE PAIN 7-10 Last administered on 7/12/19at 06:39; Admin Dose 1 MG; Start 05/31/19 at 13:30 Hydromorphone HCl (Dilaudid) 0.5 mg Q4H PRN IV SEVERE PAIN LEVEL 7-10 Last administered on 06/01/19at 18:29; Admin Dose 0.5 MG; Start 06/01/19 at 01:30 Sodium Chloride 1,000 ml @ 1,000 mls/hr Q1H ONCE IV ; Start 06/02/19 at 14:30; Stop 06/02/19 at 15:29 LANIE HERNANDEZ [employer] Jun 02, 2019 14:18
[2019-06-02] MEDS ORDERED: SOD CHLORIDE 0.9% 1,000 ML IV ONE (14:30)
[2019-06-02 14:44] VITALS: BP 96/51; PULSE 62; RESP 17
[2019-06-02] MEDS ORDERED: IOHEXOL 300MG/ML 150 ML BTL ONE (15:01)
[2019-06-02] MEDS: FAT EMULSION 20% 250 ML IV SCH (16:30)
[2019-06-02 19:37] VITALS: BP 116/67; PULSE 80; RESP 17
[2019-06-03 02:10] VITALS: BP 119/66; PULSE 70; RESP 18
[2019-06-03] MEDS: HYDROmorphONE 1 MG/ML SYG IV PRN ×4 (03:00→16:54)
[2019-06-03] MEDS: PANTOPRAZOLE 40 MG INJ IV SCH (05:37)
[2019-06-03] MEDS: ACCU-CHEK XX SCH ×3 (05:40→12:00)
[2019-06-03 07:36] VITALS: BP 112/64; PULSE 77; RESP 16
[2019-06-03] MEDS: DULOXETINE 20 MG CAP DR PO SCH (09:01)
[2019-06-03] MEDS: INSULIN ASPART [NOVOLOG] 3 ML PEN SC SCH (09:02)
[2019-06-03] MEDS: ENOXAPARIN 40 MG/0.4 ML SYG SC SCH (09:02)
--- NOTE | 2019-06-03 11:01 | PN ---
Date/Time of Note Date/Time of Note DATE: 06/03/19 TIME: 11:00 Assessment/Plan Lines/Catheters IV Catheter Type (from Nrs): PICC Line Nunez in Place (from Nrs): No Subjective 24 Hr Interval Summary . Patient is 7 days after the duodenojejunostomy for SMA syndrome. Patient finally had a bowel movement. Tolerates liquid diet. I per GI study showed patency of the anastomosis no evidence of leak. Stomach is still distended but its understandable after long-term obstruction. Patient can be safely discharged home on full liquid diet. I talked to the patient gave her instructions. We will see the patient in 10 to 14 days for follow-up. PICC line can be removed. Exam/Review of Systems Vital Signs Vitals Vital Signs Date Temp Pulse Resp B/P (MAP) Pulse Ox O2 O2 Flow FiO2 Time Delivery Rate 06/03/19 98.0 77 16 112/64 99 07:36 (80) 06/02/19 Room Air 02:00 Intake and Output 06/02/19 06/02/19 06/03/19 1515:00 23:00 07:00 IntakeIntake Total 2834.587 ml BalanceBalance 2834.587 ml Results Result Diagram: 06/03/19 0533 06/03/19 0533 ELLYN BURGESS MD Jun 03, 2019 11:01
[2019-06-03] MEDS ORDERED: HYDR-4011 PO (13:39)
--- NOTE | 2019-06-03 13:43 | PDOCDIS ---
Discharge Instructions CONDITION [id number] Patient Condition: [id number] Stable HOME CARE INSTRUCTIONS: [id number] Diet Instructions: [id number] Full liquid ACTIVITY: [id number] Activity Restrictions: [id number] Slowly Increase Activity Rest between Activity FOLLOW UP/APPOINTMENTS Follow-up Plan Branden Jansen MD Specialty: General Surgery Office Address [id number] [place] [address] Office OTHER ORDERS: Other Orders: 1. Take a full liquid diet as tolerated. 2. Keep the incisions clean and dry. May shower. Avoid tub baths and swimming for 2 weeks. Use mild soap and pat dry the incisions. 3. Take medications as needed for pain. 4. Call the surgeon or go to the nearest ER if you have severe abdominal pain despite pain medications. 5. Call the surgeon or go to the nearest ER if you notice any bleeding or secretions coming out of the incision sites. Also call the surgeon if you notice any blood in stool, if you have persistent fevers, or any other unusual signs or symptoms. 6. Follow-up with the surgeon [Dr. Jansen] in 10-14 days for incision check. 7. Avoid heavy lifting [more than 25 pounds] for 8 weeks. LANIE HERNANDEZ NP Jun 03, 2019 13:43
[2019-06-03] MEDS ORDERED: DULO20CA43 PO (14:09)
--- NOTE | 2019-06-03 15:44 | DS ---
Date/Time of Note Date/Time of Note DATE: 06/03/19 TIME: 15:43 Discharge Summary Admission/Discharge Info Admit Date/Time May 22, 2019 at 13:16 Discharge Date/Time Discharge Diagnosis 1. SMA syndrome. Status post laparoscopic duodenojejunostomy on 05/26/2019. 2. Moderate protein calorie malnutrition. 3. Depression. Patient Condition: Stable Consults 1. Branden Jansen MD, General Surgery. 2. Fide Kwok NP, Psychiatry. Procedures Operative Report Procedure Date: May 26, 2019 Preoperative Diagnosis Superior mesenteric artery syndrome Postoperative Diagnosis The same Operation/Procedure Performed Laparoscopic duodenal jejunostomy Abdominal Angiography IMPRESSION: 1. Markedly distended stomach and proximal duodenum with transitional point at the third part of the duodenum. Considering reduced values of the aortomesenteric angle and aortomesenteric distance, superior mesenteric artery syndrome is in the differential diagnosis. 2. Severe narrowing of the left renal vein due to compression between superior mesenteric artery and aorta raising the possibility of nutcracker syndrome. 3. 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 Hx of Present Illness Reason for admission: Abdominal pain. Imaging showing superior mesenteric artery syndrome. Consults 1. Branden Jansen MD, General Surgery. Patient is Turkmen-speaking. A certified hospital account manager was used for patient interview. ID number [id number] This is a 33-year-old female who denies any significant past medical history. The patient came to the emergency room with chief complaint of abdominal pain th at woke her up from sleep. The patient tried taking activated carbon with minimal improvement. The patient vomited multiple times that was dark in color, probably secondary to activated carbon. The patient verbalized that she had a similar episode approximately 3 days ago that resolved on its own. The patient verbalized that she has been losing weight unintentionally over the past few weeks. She denied any diarrhea. She denied any hematemesis, melena, or hematochezia. She denied any chest pain or dyspnea. In the emergency room, the patient underwent a CT scan of the abdomen and pelvis that was showing marked distention of the stomach and proximal duodenum with abrupt transition point at the second portion of the duodenum, at the expected location of the superior mesenteric artery; findings suspicious for superior mesenteric artery syndrome. The patient consequently underwent an abdominal angiography that was showing evidence of superior mesenteric artery syndrome. General surgery consult was obtained by the ER physician. The patient was provided with the pain medications and IV fluids in the emergency room. Hospital Course She was provided with adequate pain control.The patient was admitted to inpatient setting. A general surgery consult was obtained. She was kept n.p.o. and was started on NGT decompression since the patient had evidence of dilated stomach and duodenum down to the third portion with transition point. After sufficient decompression of the stomach and duodenum, the patient was taken to the OR on 05/26/2019 and she underwent a laparoscopic duodenojejunostomy. Meanwhile, the patient already got a PICC line in place and she was started on TPN for provision of nutrients. The patient had evidence of underlying moderate protein calorie malnutrition. Postoperatively, the patient was maintained on NGT decompression until there was minimal NGT output. The patient was started on a clear liquid diet on 05/31/2019. The patient underwent a upper gastrointestinal series on 06/02/2019 that was showing no evidence of any leak or obstruction. The upper GI series also showed a slow passage of the contrast in to the duodenum with normal passage to the anastomosis without evidence of leak or obstruction. Therefore, the patient's diet was advanced to full liquid diet. The patient is a relatively healthy person with no significant other comorbidities. The patient was noted to be significantly malnourished. Therefore, the patient was on TPN during the hospital course. The patient also had evidence of clinical depression. Therefore she was evaluated by psychiatry and was started on Cymbalta. Upon discharge, the patient's TPN will be weaned off and the patient's PICC line will be discontinued. The patient will follow up with the surgeon as outpatient in 10 to 14 days. The patient had a prolonged hospital course because the complexity of the patient's clinical condition, the necessity for surgery, and the necessity to reintroduce the diet slowly.. Discharge Instructions 1. Take a full liquid diet as tolerated. 2. Keep the incisions clean and dry. May shower. Avoid tub baths and swimming for 2 weeks. Use mild soap and pat dry the incisions. 3. Take medications as needed for pain. 4. Call the surgeon or go to the nearest ER if you have severe abdominal pain despite pain medications. 5. Call the surgeon or go to the nearest ER if you notice any bleeding or secretions coming out of the incision sites. Also call the surgeon if you notice any blood in stool, if you have persistent fevers, or any other unusual signs or symptoms. 6. Follow-up with the surgeon [Dr. Jansen] in 10-14 days for incision check. 7. Avoid heavy lifting [more than 25 pounds] for 8 weeks. The patient/patient's significant other verbalized understanding of the discharge instructions. At this time I would like to thank all the consultants for seeing the patient, doing the necessary procedures, and providing clinical recommendations. The patient was seen in collaboration with Dr. Belle. Home Meds Active Scripts Duloxetine Hcl* (Cymbalta*) 20 Mg Capsule., 20 MG PO DAILY, #30 CAP Prov:LANIE HERNANDEZ SPECIAL DISTRIBUTION CLERK 06/03/19 Hydrocodone/Acetaminophen (Kinde 5-325 Tablet) 1 Each Tablet, 1 EACH PO Q4H for Pain, #20 TAB Prov:LANIE HERNANDEZ SPECIAL DISTRIBUTION CLERK 06/03/19 [Excuse from Court] No Conflict Check This is to certify that this patient is hospitalized at [facility] since 05/22/2019. Kindly excuse her from any legal obligations since she is not in a condition to be discharged from the hospital in the next few days. Prov:LANIE HERNANDEZ SPECIAL DISTRIBUTION CLERK 05/23/19 Reported Medications Gabapentin* (Gabapentin*) 300 Mg Capsule, 300 MG PO BID, #60 CAP 05/22/19 Follow-up Plan Branden Jansen MD Specialty: General Surgery Office Address [address] [place] [address]. [address] [place] [address] Office Primary Care Provider Care Physician No Primary Time spent on discharge: > 30 minutes Pending Labs Laboratory Tests Test 06/03/19 05:33 06/03/19 08:58 06/03/19 12:18 White Blood Count 5.6 10^3/ul (4.8-10.8) Red Blood Count 2.93 10^6/ul (4.20-5.40) Hemoglobin 8.5 g/dl (12.0-16.0) Hematocrit 25.4 % (37.0-47.0) Mean Corpuscular 86.7 Volume fl (82.0-101.0) Mean Corpuscular 29.0 pg (29.0-33.0) Hemoglobin Mean Corpuscular 33.5 Hemoglobin Concent g/dl (32.0-37.0) Red Cell 11.8 % (11.5-14.5) Distribution Width Platelet Count 242 10^3/UL (140-415) Mean Platelet 11.4 fl (7.4-10.4) Volume Immature 0.200 Granulocytes % % (0.001-0.429) Neutrophils % 42.7 % (39.0-77.0) Lymphocytes % 34.2 % (15.0-51.0) Monocytes % 11.9 % (0.0-11.0) Eosinophils % 9.8 % (0.0-7.0) Basophils % 1.2 % (0.0-2.0) Nucleated Red Blood 0.0 Cells % /100WBC (0.0-0.0) Immature 0.010 Granulocytes # 10^3/ul (0.0-0.031) Neutrophils # 2.4 10^3/ul (1.6-7.5) Lymphocytes # 1.9 10^3/ul (0.8-2.9) Monocytes # 0.7 10^3/ul (0.3-0.9) Eosinophils # 0.6 10^3/ul (0.0-0.5) Basophils # 0.1 10^3/ul (0.0-0.1) Nucleated Red Blood 0.0 Cells # 10^3/ul (0.0-0.0) Sodium Level 140 mmol/L (135-144) Potassium Level 3.8 mmol/L (3.5-5.1) Chloride Level 105 mmol/L (97-110) Carbon Dioxide 32 mmol/L (21-31) Level Anion Gap 3 (5-13) Blood Urea Nitrogen 13 mg/dl (7-20) Creatinine 0.57 mg/dl (0.44-1.00) Est Glomerular > 60 mL/min (>60) Filtrat Rate mL/min Glucose Level 92 mg/dl (70-220) Calcium Level 8.4 mg/dl (8.4-10.2) Phosphorus Level 3.4 mg/dl (2.5-4.9) Magnesium Level 2.0 mg/dl (1.7-2.5) Total Bilirubin 0.4 mg/dl (0.2-1.3) Direct Bilirubin 0.00 mg/dl (0.00-0.20) Indirect Bilirubin 0.4 mg/dl (0-1.1) Aspartate Amino 30 IU/L (15-46) Transf (AST/SGOT) Alanine 57 IU/L (13-69) Aminotransferase (AL T/SGPT) Alkaline 55 IU/L (42-121) Phosphatase Total Protein 6.2 g/dl (6.1-8.1) Albumin 3.1 g/dl (3.3-4.9) Globulin 3.10 g/dl (1.3-3.2) Albumin/Globulin 1.00 Ratio Bedside Glucose 144 mg/dL (70-220) 99 mg/dL (70-220) LANIE HERNANDEZ NP Jun 03, 2019 15:44
== END 2019-06-03 18:40 | disposition home or self-care (01) | DRG 330 ==
LOC: E/R 04:40 → PP2 13:16 → 5EC 05-24 19:54
PROVIDERS: ADMIT Hospitalist; ATTEND Internal Medicine
PROC: 0D9670Z Drainage of Stomach with Drainage Device, Via Natural or Artificial Opening (ICD-10-PCS; 2019-05-22)
PROC: 0D194ZA Bypass Duodenum to Jejunum, Percutaneous Endoscopic Approach (ICD-10-PCS; principal; 2019-05-26 13:30)
DX: K55.1 Chronic vascular disorders of intestine (principal); E44.0 Moderate protein-calorie malnutrition; Z68.1 Body mass index [BMI] 19.9 or less, adult; F32.9 Major depressive disorder, single episode, unspecified; K31.89 Other diseases of stomach and duodenum; K63.89 Other specified diseases of intestine
CPT/HCPCS: 36415; 36569; 71045; 74018; 74176; 74240; 75635; 76937; 80048; 80053; 80307; 81001; 81025; 82150; 82947; 82962; 83036; 83690; 83735; 84100; 84134; 84439; 84443; 84478; 85025; 85610; 85730; 86850; 86900; 86901; 87086; 96374; 96375; C9113; C9363; J0690; J1100; J1170; J1650; J1815; J1885; J2060; J2250; J2270; J2405; J2765; J2795; J2997; J3010; J3480; J7030; Q9967

== ENCOUNTER 2019-06-21 02:59 | Observation (INO) | payer MEDICAID ==
[~2019-06-21] VITALS: Ht 162.6 cm; Wt 48.4 kg
[~2019-06-21 02:59] MED LIST: DOCU-144 PO; DULO20CA43 PO; FAMO20TA18 PO; GABA300C16 PO; HYDR-4011 PO; LORA0.5T PO; NAPR-985 PO; TRAM50TA2 PO; [UNRECOGNIZED DRUG - REMARK]
[2019-06-21] MEDS ORDERED: SOD CHLORIDE 0.9% 1,000 ML IV STA (03:10)
[2019-06-21] MEDS ORDERED: ONDANSETRON 4 MG INJ IV STA (03:10)
[2019-06-21] MEDS ORDERED: morphine 4 MG/ML VIAL IV STA (03:10)
[2019-06-21] MEDS ORDERED: IOHEXOL 300MG/ML 150 ML BTL ONE (03:36)
[2019-06-21] MEDS ORDERED: SOD CHLORIDE 0.9% 100 ML ONE (03:36)
[2019-06-21] MEDS ORDERED: HYDROmorphONE 2 MG/ML SYG IV STA (03:48)
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
[2019-06-21] MEDS ORDERED: ONDANSETRON 4 MG INJ IV PRN (06:00)
[2019-06-21] MEDS ORDERED: ACETAMINOPHEN 325 MG TAB PO PRN (06:00)
--- NOTE | 2019-06-21 13:13 | HP ---
Date/Time of Note Date/Time of Note DATE: 06/21/19 TIME: 13:05 Assessment/Plan VTE Prophylaxis SCD applied (from Nsg): Yes Pharmacological prophylaxis: NA/contraindicated Pharm contraindication: low risk/ambulating Lines/Catheters IV Catheter Type (from Nrsg): Peripheral IV Assessment/Plan Hospital Course 34-year-old female status post recent laparoscopic duodenojejunostomy for SMA syndrome who presented to emergency room with severe abdominal pain postoperatively. Currently managed as follows: 1. Acute abdominal postoperative pain: -CT showed no acute abnormality but also showed mild constipation, patient could be having pain related to peristalsis and constipation in view of recent surgery. -Treated with laxative and stool softeners, supportive care pain control -Surgical consult obtained with Dr. Jansen -Narcotic seeking? 2. History of substance use, methamphetamine -Social service consultation to provide resources -Cessation counseling reinforced today for at least 3 minutes Plan of care discussed in detail patient, questions have been answered. Further interventions per clinical course Result Diagram: 06/21/19 0327 06/21/19 0327 Results 24hrs Laboratory Tests Test 06/21/19 03:27 06/21/19 07:31 White Blood Count 9.4 # Red Blood Count 3.78 #L Hemoglobin 10.7 #L Hematocrit 33.3 #L Mean Corpuscular Volume 88.1 Mean Corpuscular Hemoglobin 28.3 L Mean Corpuscular Hemoglobin Concent 32.1 Red Cell Distribution Width 12.5 Platelet Count 311 # Mean Platelet Volume 9.7 Immature Granulocytes % 0.300 Neutrophils % 47.5 Lymphocytes % 36.1 Monocytes % 7.6 Eosinophils % 7.5 H Basophils % 1.0 Nucleated Red Blood Cells % 0.0 Immature Granulocytes # 0.030 Neutrophils # 4.5 Lymphocytes # 3.4 H Monocytes # 0.7 Eosinophils # 0.7 H Basophils # 0.1 Nucleated Red Blood Cells # 0.0 Prothrombin Time 12.1 Prothrombin Time Ratio 0.9 INR International Normalized Ratio 0.89 Activated Partial Thromboplast Time 26.5 Sodium Level 141 Potassium Level 4.5 Chloride Level 108 Carbon Dioxide Level 25 Anion Gap 8 Blood Urea Nitrogen 10 Creatinine 0.67 Est Glomerular Filtrat Rate mL/min > 60 Glucose Level 112 Calcium Level 8.9 Total Bilirubin 0.6 Direct Bilirubin 0.00 Indirect Bilirubin 0.6 Aspartate Amino Transf (AST/SGOT) 22 Alanine Aminotransferase (ALT/SGPT) 24 Alkaline Phosphatase 66 Total Protein 7.4 Albumin 4.1 Globulin 3.30 H Albumin/Globulin Ratio 1.24 Lipase 169 Serum HCG, Qualitative NEGATIVE Urine Color YELLOW Urine Clarity CLEAR Urine pH 5.0 Urine Specific [place] > 1.060 H Urine Ketones TRACE A Urine Nitrite NEGATIVE Urine Bilirubin NEGATIVE Urine Urobilinogen NEGATIVE Urine Leukocyte Esterase NEGATIVE Urine Hemoglobin NEGATIVE Urine Glucose NEGATIVE Urine Total Protein NEGATIVE HPI/ROS Admit Date/Time Admit Date/Time Jun 21, 2019 at 05:50 Hx of Present Illness 34-year-old female who was recently discharged from this hospital June 05, 2019 after she had undergone laparoscopic duodenojejunostomy May 26, 2019 for SMA syndrome. Patient presents today with severe abdominal pain of acute onset. Pain is diffuse in the abdomen, not located to one spot, no associated nausea vomiting, no diarrhea, no fever. Patient was seen by her surgeon yesterday in the office without any problems, patient states that pain began suddenly overnight. Patient states she had a bowel movement yesterday. Denies dysuria or hematuria, denies passing out episodes, denies chest pain. ROS 12 point review if systems was done and pertinent findings are as noted. PMH/Family/Social Past Medical History 1. SMA syndrome. Status post laparoscopic duodenojejunostomy on 05/26/2019. 2. Moderate protein calorie malnutrition. 3. Depression. Medications Current Medications Ondansetron HCl (Zofran Inj) 4 mg BRIDGE ORDER PRN IV NAUSEA/VOMITING; Start 06/21/19 at 06:00; Stop 06/22/19 at 05:59 Acetaminophen (Tylenol Tab) 650 mg ER BRIDGE PRN PO .MILD PAIN 1-3 OR TEMP; Start 06/21/19 at 06:00; Stop 06/22/19 at 05:59 Coded Allergies: No Known Allergy (Unverified , 05/22/19) Past Surgical History Past Surgical Hx: appendectomy, bowel resection (Laparoscopic duodenojejunos [place]) Family History Significant Family History: no pertinent family hx Social History Smoking Status: Unknown if ever smoked Drug Use: other (Methamphetamines) Exam/Review of Systems Vital Signs Vitals Vital Signs Date Temp Pulse Resp B/P (MAP) Pulse Ox O2 O2 Flow FiO2 Time Delivery Rate 06/21/19 74 20 110/87 100 Room Air 08:30 (95) 06/21/19 2.0 06:44 06/21/19 97.7 05:36 Exam Exam Constitutional: alert, oriented, anxious Head: atraumatic, normocephalic Neck: non-tender, supple Respiratory: clear to auscultation Cardiovascular: regular rate and rhythm Gastrointestinal: S/ NT / ND / +BS Extremities: no edema, good radial pulses Additional Comments ROCEDURE: CT ABDOMEN/PELVIS WITH CONTRAST CLINICAL INDICATION: 34-year-old female with abdominal pain. TECHNIQUE: The study was performed utilizing a [employer] VCT 64-slice CT scanner. Direct axial sections were obtained through the abdomen and pelvis with the use of 100 cc of Omnipaque-300 nonionic intravenous contrast material. Sagittal and coronal reformations were obtained. One or more of the following dose reduction techniques were utilized: automated exposure control, adjustment of the mA and/or kV according to patient's size and/or use of iterative tierra nstruction technique. DICOM images are available. The images were reviewed on a PACS workstation. CTD/vol = 4.76 mGy; Total Exam DLP = 253.36 mGy.cm. COMPARISON: CT abdomen/pelvis May 22, 2019. FINDINGS: The lung bases are unremarkable. There is no evidence for significant pleural effusion. The liver has a normal size and contour without focal areas of abnormal density or contrast enhancement. There is diffuse nonspecific periportal edema. No intrahepatic nor extrahepatic biliary ductal dilatation is seen. The gallbladder demonstrates no wall thickening nor pericholecystic fluid. No biliary stones are evident. The pancreas is without areas of abnormal attenuation or contrast enhancement. This spleen is identified and has a normal size without abnormal density or contrast enhancement. The adrenal glands are unremarkable. The kidneys are functional bilaterally without abnormal density. No hydroureteronephrosis nor nephroureterolithiasis is evident. The urinary bladder contains urine. The stomach complains fluid. Multiple surgical clips are seen within the mid abdomen. There is mild fluid identified within the small bowel. There is mild retained stool throughout the colon without obstruction. The appendix is not visualized however there are no periappendiceal inflammatory changes. The uterus is anteflexed. There is a partially collapsed left ovarian cyst measuring approximately 1.4 x 1.7 x 2.0 cm. There is mild pelvic free fluid. The aortoiliac vessels are without aneurysmal dilatation. The osseous structures are intact. IMPRESSION: 1. Nonspecific diffuse periportal edema. 2. Prior mid abdominal surgery with multiple clips identified. 3. Mild retained stool without obstruction. 4. Partially collapsed left ovarian cyst. 5. Mild pelvic free fluid. .Laron Kelly MD, Date Time Electronically viewed and signed by .Laron Kelly MD, on 06/21/2019 04:41 .M/ CC: CATHI WEISS [id number] VARGHESE ARIZA Jun 21, 2019 13:13
[2019-06-21 13:15] VITALS: Ht 162.6 cm; Wt 48.4 kg
[2019-06-21] MEDS ORDERED: KETOROLAC 15 MG INJ IV STA (13:45)
[2019-06-21] MEDS ORDERED: FAMOTIDINE 20 MG TAB PO ONE (14:00)
[2019-06-21] MEDS ORDERED: HYDROmorphONE 1 MG/ML SYG IV ONE (14:00)
[2019-06-21] MEDS ORDERED: DOCUSATE SODIUM 100 MG CAP PO ONE (14:00)
[2019-06-21] MEDS ORDERED: POLYETHYLENE GLYCOL 17 GM PACKET PO ONE (14:00)
[2019-06-21 14:55] VITALS: BP 138/85; PULSE 58; RESP 18
[2019-06-21] MEDS ORDERED: OXYMETAZOLINE 0.05% 15 ML NAS SPRAY NASAL PRN (17:30)
[2019-06-21 19:40] VITALS: BP 120/74; PULSE 70; RESP 17
[2019-06-21] MEDS: morphine 2 MG INJ IV PRN ×2 (19:53→23:27)
[2019-06-21] MEDS: DOCUSATE SODIUM 100 MG CAP PO SCH (21:21)
[2019-06-21] MEDS: FAMOTIDINE 20 MG TAB PO SCH (21:21)
[2019-06-22] MEDS: KETOROLAC 30 MG INJ IV PRN ×2 (01:20→11:22)
[2019-06-22 01:33] VITALS: BP 126/78; PULSE 88; RESP 17
[2019-06-22] MEDS ORDERED: ZOLPIDEM 5 MG TAB PO PRN (02:30)
[2019-06-22 08:00] VITALS: BP 142/96; PULSE 138; RESP 16
[2019-06-22] MEDS: DOCUSATE SODIUM 100 MG CAP PO SCH (08:01)
[2019-06-22] MEDS: FAMOTIDINE 20 MG TAB PO SCH (08:01)
[2019-06-22] MEDS: morphine 2 MG INJ IV PRN (08:01)
--- NOTE | 2019-06-22 13:57 | DS ---
Date/Time of Note Date/Time of Note DATE: 06/22/19 TIME: 13:53 Discharge Summary Admission/Discharge Info Admit Date/Time Jun 21, 2019 at 05:50 Discharge Date/Time Discharge Diagnosis 34-year-old female status post recent laparoscopic duodenojejunostomy for SMA syndrome who presented to emergency room with severe abdominal pain 3 weeks postoperatively. managed as follows: 1. Acute abdominal postoperative pain: -CT showed no acute abnormality but also showed mild constipation, patient could be having pain related to peristalsis and constipation in view of recent surgery. -Treated with laxative and stool softeners, supportive care pain control -pain resolved 2. History of substance use, methamphetamine -Social service consultation provided resources -Cessation counseling reinforced today for at least 3 minutes 3. Chronic depression / anxiety: -may be related to #1 -Patient encouraged to follow-up outpatient with her own psychiatrist for continued management.w . Patient Condition: Stable Consults General surgery: aSi Jansen . Hx of Present Illness 34-year-old female who was recently discharged from this hospital June 05, 2019 after she had undergone laparoscopic duodenojejunostomy May 26, 2019 for SMA syndrome. Patient presents today with severe abdominal pain of acute onset. Pain is diffuse in the abdomen, not located to one spot, no associated nausea vomiting, no diarrhea, no fever. Patient was seen by her surgeon yesterday in the office without any problems, patient states that pain began suddenly overnight. Patient states she had a bowel movement yesterday. Denies dysuria or hematuria, denies passing out episodes, denies chest pain. Hospital Course 34-year-old female status post recent laparoscopic duodenojejunostomy for SMA syndrome who had presented about 3 weeks postoperatively with severe acute onset postoperative abdominal pain that was diffuse. CT showed no acute abnormality but also showed some mild constipation, patient was admitted and treated for pain control, she was also given laxatives and stool softeners. As of this time the patient is doing better, pain is resolved, she has had anxiety issues and feels like her cramping abdominal pain may be related to anxiety. Telephone consult was also done with the surgeon who did her surgery, he reviewed the CT, but did not have to see the patient because patient's pain got better. At this time the patient is requesting to be discharged and I am in agreement, she is tolerating a diet. She was discharged in stable condition for continued follow- up outpatient with primary care doctor and the surgeon. . Home Meds Active Scripts Duloxetine Hcl* (Cymbalta*) 20 Mg Capsule., 20 MG PO DAILY, #30 CAP Prov:LANIE HERNANDEZ [employer] SHOE DANCER 06/03/19 Reported Medications Gabapentin* (Gabapentin*) 300 Mg Capsule, 300 MG PO BID, #60 CAP 05/22/19 Discontinued Scripts Hydrocodone/Acetaminophen ([place] 5-325 Tablet) 1 Each Tablet, 1 EACH PO Q4H for Pain, #20 TAB Prov:LANIE HERNANDEZ NP 06/03/19 [Excuse from Court] No Conflict Check This is to certify that this patient is hospitalized at [facility] since 05/22/2019. Kindly excuse her from any legal obligations since she is not in a condition to be discharged from the hospital in the next few days. Prov:LANIE HERNANDEZ NP 05/23/19 Follow-up Plan 1. Followup with your primary doctor within the next 1-2 weeks. If you don't have one please let someone know, we can give you resources that may help you pick one. You may call Dr Valeriy Chery's office. he's accepting new patients Name, Degree: Valeriy Chery MD Specialty: Internal Medicine Comments: Office Address: [address] [place] [address] Office Office You may also call your insurance company to assign one to you. 2. You should also follow-up with your psychiatrist for management of your anxiety. 3. Review your medication list with your nurse before leaving and if you need new prescriptions please let your nurse know. 4. I may have made changes to your home medications or given you new prescriptions, please let your primary doctor know as well. 5. Stay compliant with your medications and report any side effects to your PCP or pharmacist. 6. Return to the ER if you have any concerns and cannot reach your doctors or call your insurance company, they usually have a nurse that can help you. Primary Care Provider Care Physician No Primary Time spent on discharge: > 30 minutes Pending Labs Laboratory Tests Test 06/22/19 04:20 White Blood Count 8.4 10^3/ul (4.8-10.8) Red Blood Count 3.35 10^6/ul (4.20-5.40) Hemoglobin 9.4 g/dl (12.0-16.0) Hematocrit 29.4 % (37.0-47.0) Mean Corpuscular Volume 87.8 fl (82.0-101.0) Mean Corpuscular Hemoglobin 28.1 pg (29.0-33.0) Mean Corpuscular Hemoglobin Concent 32.0 g/dl (32.0-37.0) Red Cell Distribution Width 12.5 % (11.5-14.5) Platelet Count 244 10^3/UL (140-415) Mean Platelet Volume 10.6 fl (7.4-10.4) Immature Granulocytes % 0.200 % (0.001-0.429) Neutrophils % 57.1 % (39.0-77.0) Lymphocytes % 27.4 % (15.0-51.0) Monocytes % 6.8 % (0.0-11.0) Eosinophils % 7.8 % (0.0-7.0) Basophils % 0.7 % (0.0-2.0) Nucleated Red Blood Cells % 0.0 /100WBC (0.0-0.0) Immature Granulocytes # 0.020 10^3/ul (0.0-0.031) Neutrophils # 4.8 10^3/ul (1.6-7.5) Lymphocytes # 2.3 10^3/ul (0.8-2.9) Monocytes # 0.6 10^3/ul (0.3-0.9) Eosinophils # 0.7 10^3/ul (0.0-0.5) Basophils # 0.1 10^3/ul (0.0-0.1) Nucleated Red Blood Cells # 0.0 10^3/ul (0.0-0.0) Sodium Level 142 mmol/L (135-144) Potassium Level 3.7 mmol/L (3.5-5.1) Chloride Level 109 mmol/L (97-110) Carbon Dioxide Level 25 mmol/L (21-31) Anion Gap 8 (5-13) Blood Urea Nitrogen 7 mg/dl (7-20) Creatinine 0.64 mg/dl (0.44-1.00) Est Glomerular Filtrat Rate mL/min > 60 mL/min (>60) Glucose Level 88 mg/dl (70-220) Calcium Level 8.5 mg/dl (8.4-10.2) Magnesium Level 2.0 mg/dl (1.7-2.5) Total Bilirubin 1.4 mg/dl (0.2-1.3) Direct Bilirubin 0.00 mg/dl (0.00-0.20) Indirect Bilirubin 1.4 mg/dl (0-1.1) Aspartate Amino Transf (AST/SGOT) 23 IU/L (15-46) Alanine Aminotransferase (ALT/SGPT) 28 IU/L (13-69) Alkaline Phosphatase 55 IU/L (42-121) Total Protein 6.3 g/dl (6.1-8.1) Albumin 3.5 g/dl (3.3-4.9) VARGHESE ARIZA Jun 22, 2019 13:57
--- NOTE | 2019-06-22 14:02 | PDOCDIS ---
Discharge Instructions DIAGNOSIS Discharge Diagnosis CONDITION [id number] Patient Condition: [id number] Stable HOME CARE INSTRUCTIONS: [id number] Diet Instructions: [id number] Regular [id number] Special Diet: Nsiwi8x High fiber ACTIVITY: Bhtnb0Nq Activity Restrictions: Okadj0y Rest between Activity FOLLOW UP/APPOINTMENTS Follow-up Plan 1. Followup with your primary doctor within the next 1-2 weeks. If you don't have one please let someone know, we can give you resources that may help you pick one. You may call Dr Valeriy Chery's office. he's accepting new patients Name, Degree: Valeriy Chery MD Specialty: Internal Medicine Comments: Office Address: [address] [place] [address] [place], [place] [id number] Office Office You may also call your insurance company to assign one to you. 2. You should also follow-up with your psychiatrist for management of your anxiety. 3. Review your medication list with your nurse before leaving and if you need new prescriptions please let your nurse know. 4. I may have made changes to your home medications or given you new prescriptions, please let your primary doctor know as well. 5. Stay compliant with your medications and report any side effects to your PCP or pharmacist. 6. Return to the ER if you have any concerns and cannot reach your doctors or call your insurance company, they usually have a nurse that can help you. 7. Please stop using methamphetamines. If you have already stopped, Good for you!!!. It is however an ongoing process. If you need help or resources, please let someone know before you leave. We are here to help you. It has been associated with a lot of disease processes and early and is not favourable for healing. VARGHESE ARIZA Jun 22, 2019 14:02
--- NOTE | 2019-06-22 15:41 | PN ---
Date/Time of Note Date/Time of Note DATE: 06/22/19 TIME: 15:37 Assessment/Plan Lines/Catheters IV Catheter Type (from Nrsg): Peripheral IV Assessment/Plan Assessment/Plan Patient 3 weeks after duodenojejunostomy for superior mesenteric artery syndrome. Initially patient did well but developed abdominal pain. 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 CT scan did not show significantly dilated afferent loop. patient can be discharged home, however if this attack will return or pain persists I would recommend a small bowel follow-through and possible surgery to convert her from loop configuration to Hubert-en-Y configuration to treat the afferent loop syndrome. Subjective 24 Hr Interval Summary Patient returned to emergency room 3 weeks after duodenojejunostomy for superior mesentery artery syndrome. Her postoperative period was complicated by prolonged ileus. Eventually he was able to tolerate regular diet and having regular bowel movements. I saw her 2 days ago at my office and she was completely normal without any complaints. Night after visit patient developed abdominal pain nausea and she rushed to emergency room. In the emergency room CT scan was performed that was essentially normal besides periportal edema. Labs were normal patient was admitted for pain control. Over the next 24 hours pain got significantly better. She had small bowel movement. Feeding: advancing diet Pain Control: moderate Exam/Review of Systems Vital Signs Vitals Vital Signs Date Temp Pulse Resp B/P (MAP) Pulse Ox O2 O2 Flow FiO2 Time Delivery Rate 06/22/19 97.9 138 16 142/96 100 08:00 (111) 06/21/19 Room Air 08:30 06/21/19 2.0 06:44 Intake and Output 06/21/19 06/21/19 06/22/19 1515:00 23:00 07:00 IntakeIntake Total 1000 ml BalanceBalance 1000 ml Exam Constitutional: alert, oriented, well developed Psych: no complaints, nl mood/affect Head: normocephalic, atraumatic Eyes: nl conjunctiva, EOMI, nl lids, nl sclera ENMT: nl external ears & nose, nl lips & teeth, nl nasal mucosa & septum, mucosa pink and moist Neck: supple, non-tender Respiratory: clear to auscultation, normal air movement Cardiovascular: regular rate and rhythm, nl pulses Gastrointestinal: soft, nl liver, spleen, other (There is mild tenderness in the left subcostal area.) Musculoskeletal: nl extremities to inspection, nl gait and stance Extremities: normal pulses Neurological: CREDENTIALING COORDINATOR II-XII intact, nl mental status, nl speech, nl strength Skin: nl turgor, rash or lesions Lymph: nl lymph nodes Results Result Diagram: 06/22/1941906/22/19419 ELLYN BURGESS MD Jun 22, 2019 15:41
== END 2019-06-22 16:20 | disposition home or self-care (01) ==
LOC: E/R 02:59 → EDBD 02:59 → UNDOADMOB 05:50 → MS3 05:50 → INTOOBSV 05:50 → MS3 05:50 → CANRESERV 07:21
PROVIDERS: ADMIT Internal Medicine; ATTEND Internal Medicine
DX: G89.18 Other acute postprocedural pain (principal); F32.9 Major depressive disorder, single episode, unspecified; F41.9 Anxiety disorder, unspecified; F15.10 Other stimulant abuse, uncomplicated
CPT/HCPCS: 36415; 74177; 76856; 80048; 80053; 80076; 81003; 83690; 83735; 84703; 85025; 85610; 85730; 87081; 96374; 96375; J1170; J1885; J2270; J2405; J7030; Q9967; Z7500; Z7502; Z7610; G0378

== ENCOUNTER 2019-06-24 20:27 | Inpatient (IN) | payer MEDICAID ==
[~2019-06-24] VITALS: Ht 162.6 cm; Wt 49.0 kg
[~2019-06-24 20:27] MED LIST changes: -[UNRECOGNIZED DRUG - REMARK]
[2019-06-24] MEDS ORDERED: SOD CHLORIDE 0.9% 1,000 ML IV STA (21:23)
[2019-06-24] MEDS ORDERED: ONDANSETRON 4 MG INJ IV STA (21:23)
[2019-06-24] MEDS ORDERED: HYDROmorphONE 1 MG/ML SYG IV STA (21:23)
--- NOTE | 2019-06-24 21:36 | ERD ---
ER Documentation Chief Complaint Chief Complaint AP X 1 MONTH. HPI 34-year-old female with history of recently diagnosed SMA syndrome status post duodenojejunostomy placement presents to the ED complaining of a 1 day history of severe, generalized, sharp and crampy, not rating abdominal pain with nausea and multiple episodes of nonbloody nonbilious emesis. Her last bowel movement was just prior to arrival. No chest pain or palpitations. No dysuria or polyuria. No relieving or exacerbating factors. No fevers or chills. ROS All systems reviewed and are negative except as per history of present illness. Medications Home Meds Active Scripts Hydrocodone/Acetaminophen ([place] 5-325 Tablet) 1 Each Tablet, 1 EACH PO Q6H PRN for PAIN, #10 TAB Prov:ANNITA,FEROZATITO M. 06/22/19 Lorazepam* (Lorazepam*) 0.5 Mg Tablet, 0.5 MG PO Q8 PRN for ANXIETY, #5 TAB Prov:ANNITASAMO M. 06/22/19 Famotidine* (Famotidine*) 20 Mg Tablet, 20 MG PO BID for 7 Days, #14 TAB Prov:ANNITASAMO M. 06/22/19 Docusate Sodium* (Colace*) 100 Mg Capsule, 100 MG PO BID, #28 CAP Prov:ANNITA,FEROZATITO M. 06/22/19 Duloxetine Hcl* (Cymbalta*) 20 Mg Capsule.dr, 20 MG PO DAILY, #30 CAP Prov:LANIE HERNANDEZ NP 06/03/19 Reported Medications Gabapentin* (Gabapentin*) 300 Mg Capsule, 300 MG PO BID, #60 CAP 05/22/19 Discontinued Scripts Hydrocodone/Acetaminophen ([place] 5-325 Tablet) 1 Each Tablet, 1 EACH PO Q4H for Pain, #20 TAB Prov:LANIE HERNANDEZ NP 06/03/19 [Excuse from Court] No Conflict Check This is to certify that this patient is hospitalized at [facility] since 05/22/2019. Kindly excuse her from any legal obligations since she is not in a condition to be discharged from the hospital in the next few days. Prov:LANIE HERNANDEZ NP 05/23/19 Allergies Allergies: Coded Allergies: No Known Allergy (Unverified , 05/22/19) PMhx/Soc Reviewed in chart. As per HPI. History of Surgery: Yes (BOWEL RESECTION) Anesthesia Reaction: No Hx Neurological Disorder: No Hx Respiratory Disorders: No Hx Cardiac Disorders: No Hx Psychiatric Problems: No Hx Miscellaneous Medical Probl: Yes (SBO) Hx Alcohol Use: No Hx Substance Use: No Hx Tobacco Use: No Smoking Status: Never smoker FmHx Family history relevant to presenting complaint Physical Exam Vitals Vital Signs Date Temp Pulse Resp B/P (MAP) Pulse Ox O2 O2 Flow FiO2 Time Delivery Rate 06/24/19 78 18 158/107 98 Room Air 21:15 (124) 06/24/19 98.8 79 18 165/107 100 20:28 (126) Physical Exam Const: Moderate distress due to pain Head: Atraumatic Eyes: Normal Conjunctiva ENT: Normal External Ears, Nose and Mouth. Neck: Full range of motion. No meningismus. Resp: Clear to auscultation bilaterally Cardio: Regular rate and rhythm, no murmurs Abd: Distended, diffusely tender without rebound or guarding. Skin: No petechiae or rashes Back: No midline or flank tenderness Ext: No cyanosis, or edema Neur: Awake and alert Psych: Anxious but not depressed Result Diagram: 06/24/19211706/24/192117 Results 24 hrs Laboratory Tests Test 06/24/19 21:18 White Blood Count 11.9 10^3/ul Red Blood Count 4.20 10^6/ul Hemoglobin 11.7 g/dl Hematocrit 36.5 % Mean Corpuscular Volume 86.9 fl Mean Corpuscular Hemoglobin 27.9 pg Mean Corpuscular Hemoglobin Concent 32.1 g/dl Red Cell Distribution Width 12.4 % Platelet Count 313 10^3/UL Mean Platelet Volume 9.9 fl Immature Granulocytes % 0.400 % Neutrophils % 77.7 % Lymphocytes % 13.2 % Monocytes % 5.4 % Eosinophils % 2.8 % Basophils % 0.5 % Nucleated Red Blood Cells % 0.0 /100WBC Immature Granulocytes # 0.050 10^3/ul Neutrophils # 9.3 10^3/ul Lymphocytes # 1.6 10^3/ul Monocytes # 0.6 10^3/ul Eosinophils # 0.3 10^3/ul Basophils # 0.1 10^3/ul Nucleated Red Blood Cells # 0.0 10^3/ul Sodium Level 143 mmol/L Potassium Level 4.2 mmol/L Chloride Level 105 mmol/L Carbon Dioxide Level 27 mmol/L Anion Gap 11 Blood Urea Nitrogen 8 mg/dl Creatinine 0.68 mg/dl Est Glomerular Filtrat Rate mL/min > 60 mL/min Glucose Level 128 mg/dl Calcium Level 9.5 mg/dl Total Bilirubin 1.1 mg/dl Direct Bilirubin 0.00 mg/dl Indirect Bilirubin 1.1 mg/dl Aspartate Amino Transf (AST/SGOT) 22 IU/L Alanine Aminotransferase (ALT/SGPT) 22 IU/L Alkaline Phosphatase 69 IU/L Total Protein 8.3 g/dl Albumin 4.6 g/dl Globulin 3.70 g/dl Albumin/Globulin Ratio 1.24 Lipase 103 U/L Current Medications Medications Dose Sig/Asiya Start Time Status Last (Trade) Ordered Route PRN Stop Time Admin Dose Reason Admin Sodium 1,000 ml @ Q1H STAT 06/24/19 06/24/19 Chloride 1,000 mls/hr IV 21:23 06/24/19 21:33 22:22 1 mg ONCE STAT 06/24/19 DC 06/24/19 Hydromorphone IV 21:23 06/24/19 21:32 HCl 21:25 (Dilaudid) Ondansetron 4 mg ONCE STAT 06/24/19 DC 06/24/19 HCl (Zofran IV 21:23 06/24/19 21:31 Inj) 21:25 Procedures/MDM DOCUMENTS REVIEWED: ED nurse, prior ED, prior records MEDICAL DECISION MAKIN-year-old female with history of recently diagnosed SMA syndrome status post duodenojejunostomy placement presents to the ED complaining of a 1 day history of severe, generalized, sharp and crampy, not rating abdominal pain with nausea and multiple episodes of nonbloody nonbilious emesis. CBC remarkable for borderline leukocytosis and anemia no thrombocytopenia. Chemistry reveals no evidence of electrolyte abnormalities, hyperglycemia or renal insufficiency. Pain resolved with intravenous opiates, antiemetics and IV hydration. Case discussed with surgery, Dr. Jansen. Recommends admission and upper GI series with small bowel follow-through in the morning and no utility in CT scan at this point which is deferred. No rebound, guarding or signs of peritonitis. Admit to [facility] for further evaluation and management. CALLS/CONSULTS: Time: Dr Lyass, recommends admission, NPO and upper GI with small bowel follow-through in the morning. PATIENT CARE TRANSITIONED: Time: 22:11, Dr. Schmidt. Counseled patient regarding diagnosis, diagnostic results and plan for admission. Departure Diagnosis: Primary Impression: Acute generalized abdominal pain Additional Impression: SMAS (superior mesenteric artery syndrome) Condition: Serious ANIL JUAREZ MD Jun 24, 2019 21:36
--- NOTE | 2019-06-24 22:13 | HP ---
Date/Time of Note Date/Time of Note DATE: 06/24/19 TIME: 22:13 Assessment/Plan VTE Prophylaxis SCD applied (from Nsg): Yes Pharmacological prophylaxis: other Lines/Catheters IV Catheter Type (from Nrsg): Saline Lock Assessment/Plan Assessment/Plan 1. Abdominal pain -Patient status post laparoscopic duodenojejunostomy on April 26, 2019 for SMA syndrome -Patient was readmitted 3 weeks postop. At that time CT without acute findings. She was conservatively managed. -Plan is for upper GI series with small bowel follow-through as recommended by her surgeon -Pain management -Awaiting surgical eval 2. SMA syndrome, status post laparoscopy duodenojejunostomy on April 26, 2019: See #1 3. History of polysubstance abuse including methamphetamine: Patient has been counseled 4. Anxiety/depression: Provide meds as needed 5. Partially collapsed left ovarian cyst: As seen on last CT -No acute issue Result Diagram: 06/24/19211706/24/198 Results 24hrs Laboratory Tests Test 06/24/19 21:18 White Blood Count 11.9 #H Red Blood Count 4.20 # Hemoglobin 11.7 #L Hematocrit 36.5 #L Mean Corpuscular Volume 86.9 Mean Corpuscular Hemoglobin 27.9 L Mean Corpuscular Hemoglobin Concent 32.1 Red Cell Distribution Width 12.4 Platelet Count 313 # Mean Platelet Volume 9.9 Immature Granulocytes % 0.400 Neutrophils % 77.7 H Lymphocytes % 13.2 L Monocytes % 5.4 Eosinophils % 2.8 Basophils % 0.5 Nucleated Red Blood Cells % 0.0 Immature Granulocytes # 0.050 H Neutrophils # 9.3 H Lymphocytes # 1.6 Monocytes # 0.6 Eosinophils # 0.3 Basophils # 0.1 Nucleated Red Blood Cells # 0.0 Sodium Level 143 Potassium Level 4.2 Chloride Level 105 Carbon Dioxide Level 27 Anion Gap 11 Blood Urea Nitrogen 8 Creatinine 0.68 Est Glomerular Filtrat Rate mL/min > 60 Glucose Level 128 Calcium Level 9.5 Total Bilirubin 1.1 Direct Bilirubin 0.00 Indirect Bilirubin 1.1 Aspartate Amino Transf (AST/SGOT) 22 Alanine Aminotransferase (ALT/SGPT) 22 Alkaline Phosphatase 69 Total Protein 8.3 H Albumin 4.6 Globulin 3.70 H Albumin/Globulin Ratio 1.24 Lipase 103 HPI/ROS Admit Date/Time Admit Date/Time Hx of Present Illness Patient is a 34-year-old female with a history of substance abuse/methamphetamine, anxiety/depression and history of laparoscopic duodenojejunostomy on May 26, 2019 for SMA syndrome who presents the ER complaining of abdominal pain. Patient was re-admitted here 5 days ago, (3 weeks pos-top) for severe acute onset of diffuse abdominal pain. At that time, CT showed mild retained stool without obstruction, nonspecific diffuse periportal edema, partially collapsed left ovarian cyst, mild pelvic free fluid and prior mid abdomen surgery with multiple clips. Patient was treated with bowel regimen and pain meds with improvement in her symptoms. Patient now returning back with diffuse abdominal pain of 2 days duration, associated with nausea and nonbloody, nonbilious vomiting. In the ER, initial blood pressure was 165/107. Labs shows a WBC of 11.9. PMH/Family/Social Past Medical History Past Surgical Hx: other (SEE HPI) Family History Significant Family History: no pertinent family hx Social History Alcohol Use: other Smoking Status: Unknown if ever smoked Drug Use: other Exam Constitutional: other (no acute distress) Head: normocephalic, atraumatic Eyes: PERRL Respiratory: normal air movement Cardiovascular: nl pulses Gastrointestinal: soft Extremities: normal pulses Medications Current Medications Sodium Chloride 1,000 ml @ 1,000 mls/hr Q1H STAT IV Last administered on 06/24/19at 21:33; Admin Dose 1,000 MLS/HR; Start 06/24/19 at 21:23; Stop 06/24/19 at 22:22 Coded Allergies: No Known Allergy (Unverified , 05/22/19) Past Surgical History Past Surgical Hx: appendectomy, bowel resection Family History Significant Family History: no pertinent family hx Social History Smoking Status: Never smoker Exam/Review of Systems Vital Signs Vitals Vital Signs Date Temp Pulse Resp B/P (MAP) Pulse Ox O2 O2 Flow FiO2 Time Delivery Rate 06/24/19 78 18 158/107 98 Room Air 21:15 (124) 06/24/19 98.8 20:28 CATHI CHRISTIANSON MD Jun 24, 2019 22:13
[2019-06-24] MEDS ORDERED: ONDANSETRON 4 MG INJ IV PRN (23:00)
[2019-06-24] MEDS ORDERED: ACETAMINOPHEN 325 MG TAB PO PRN (23:00)
[2019-06-25 00:30] VITALS: BP 156/86; PULSE 68; RESP 18
[2019-06-25 01:05] VITALS: Ht 162.6 cm; Wt 49.0 kg
[2019-06-25] MEDS ORDERED: ONDANSETRON 4 MG INJ IV PRN (01:30)
[2019-06-25] MEDS ORDERED: NACL 0.9% 3 ML SYG IV SCH (01:30)
[2019-06-25] MEDS ORDERED: ALBUTEROL/IPRATROPIUM (NEB) 3 ML AMP HHN PRN (01:30)
[2019-06-25] MEDS ORDERED: morphine 2 MG INJ IV PRN (01:30)
[2019-06-25] MEDS ORDERED: LORAZEPAM 2 MG INJ IV PRN (01:30)
[2019-06-25] MEDS: HYDROmorphONE 1 MG/ML SYG IV PRN ×6 (01:37→21:53)
[2019-06-25] MEDS: DEXTROSE 5%-0.45% NACL 1,000 ML IV SCH ×2 (01:43→11:35)
[2019-06-25 02:30] VITALS: BP 132/63; PULSE 62; RESP 18
[2019-06-25] MEDS: PANTOPRAZOLE 40 MG INJ IV SCH (05:42)
[2019-06-25 08:00] VITALS: BP 104/65; PULSE 60; RESP 18
--- NOTE | 2019-06-25 10:54 | PN ---
Date/Time of Note Date/Time of Note DATE: 06/25/19 TIME: 10:42 Assessment/Plan VTE Prophylaxis Risk score (from Ns)>0 risk: 1 SCD applied (from Ns): Yes Pharmacological prophylaxis: NA/contraindicated Pharm contraindication: low risk/ambulating Lines/Catheters IV Catheter Type (from [facility]): Peripheral IV Urinary Cath still in place: No Assessment/Plan Hospital Course Assessment and plan 1. Abdominal pain. 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 Surgeon following at present. Tentative plan for GI series and small bowel follow-through. Continue analgesics. Surgeon evaluation pending. 2. SMA syndrome. N.p.o. for now. Surgeon to follow. 3. History of polysubstance abuse (methamphetamine). Cessation advised 4. History of anxiety/depression. Anxiolytics as needed Disposition and plan. Continue n.p.o. for now. Continue with IV fluids. Provide with analgesics. Follow-up a.m. labs. Surgeon evaluation pending. Discussed POC with she is Avis Result Diagram: 06/25/19 0448 06/25/19 0448 Results 24hrs Laboratory Tests Test 06/24/19 21:18 06/25/19 04:48 06/25/19 04:50 White Blood Count 11.9 #H 11.2 H Red Blood Count 4.20 # 3.74 L Hemoglobin 11.7 #L 10.5 L Hematocrit 36.5 #L 32.9 L Mean Corpuscular Volume 86.9 88.0 Mean Corpuscular Hemoglobin 27.9 L 28.1 L Mean Corpuscular 32.1 31.9 L Hemoglobin Concent Red Cell Distribution Width 12.4 12.6 Platelet Count 313 # 269 Mean Platelet Volume 9.9 10.4 Immature Granulocytes % 0.400 0.400 Neutrophils % 77.7 H 72.6 Lymphocytes % 13.2 L 19.0 Monocytes % 5.4 6.1 Eosinophils % 2.8 1.5 Basophils % 0.5 0.4 Nucleated Red Blood Cells % 0.0 0.0 Immature Granulocytes # 0.050 H 0.050 H Neutrophils # 9.3 H 8.1 H Lymphocytes # 1.6 2.1 Monocytes # 0.6 0.7 Eosinophils # 0.3 0.2 Basophils # 0.1 0.1 Nucleated Red Blood Cells # 0.0 0.0 Sodium Level 143 139 Potassium Level 4.2 3.7 Chloride Level 105 107 Carbon Dioxide Level 27 26 Anion Gap 11 6 Blood Urea Nitrogen 8 7 Creatinine 0.68 0.55 Est Glomerular Filtrat > 60 > 60 Rate mL/min Glucose Level 128 126 Calcium Level 9.5 8.4 Total Bilirubin 1.1 1.2 Direct Bilirubin 0.00 0.00 Indirect Bilirubin 1.1 1.2 H Aspartate Amino 22 20 Transf (AST/SGOT) Alanine 22 24 Aminotransferase (ALT/SGPT) Alkaline Phosphatase 69 46 Total Protein 8.3 H 6.7 # Albumin 4.6 3.8 Globulin 3.70 H 2.90 Albumin/Globulin Ratio 1.24 1.31 Lipase 103 Phosphorus Level 3.7 Magnesium Level 2.0 Urine Color YELLOW Urine Clarity SLIGHTLY CLOUDY A Urine pH 5.0 Urine Specific [place] 1.024 Urine Ketones NEGATIVE Urine Nitrite NEGATIVE Urine Bilirubin NEGATIVE Urine Urobilinogen NEGATIVE Urine Leukocyte Esterase NEGATIVE Urine Microscopic RBC 1 Urine Microscopic WBC 8 H Urine Squamous Epithelial Cells FEW Urine Bacteria FEW A Urine Mucus MANY A Urine Hemoglobin NEGATIVE Urine Glucose NEGATIVE Urine Total Protein NEGATIVE Subjective 24 Hr Interval Summary Free Text/Dictation patient still has some abd discomfort, more towards epigastric area. Exam/Review of Systems Exam Vitals Vital Signs Date Temp Pulse Resp B/P (MAP) Pulse Ox O2 O2 Flow FiO2 Time Delivery Rate 06/25/19 98.2 60 18 104/65 98 Room Air 08:00 (78) Intake and Output 06/24/19 06/24/19 06/25/19 1515:00 23:00 07:00 IntakeIntake Total 300 ml OutputOutput Total 100 ml BalanceBalance 200 ml Constitutional: alert, oriented ( ) Head: normocephalic Neck: supple, non-tender Respiratory: clear to auscultation Cardiovascular: regular rate and rhythm, other (regular rate ) Gastrointestinal: soft, tender Extremities: normal pulses Neurological: LINUX ADMIN II-XII intact, nl mental status, nl speech Skin: nl turgor Results Results 24hrs Laboratory Tests Test 06/24/19 21:18 06/25/19 04:48 06/25/19 04:50 White Blood Count 11.9 #H 11.2 H Red Blood Count 4.20 # 3.74 L Hemoglobin 11.7 #L 10.5 L Hematocrit 36.5 #L 32.9 L Mean Corpuscular Volume 86.9 88.0 Mean Corpuscular Hemoglobin 27.9 L 28.1 L Mean Corpuscular 32.1 31.9 L Hemoglobin Concent Red Cell Distribution Width 12.4 12.6 Platelet Count 313 # 269 Mean Platelet Volume 9.9 10.4 Immature Granulocytes % 0.400 0.400 Neutrophils % 77.7 H 72.6 Lymphocytes % 13.2 L 19.0 Monocytes % 5.4 6.1 Eosinophils % 2.8 1.5 Basophils % 0.5 0.4 Nucleated Red Blood Cells % 0.0 0.0 Immature Granulocytes # 0.050 H 0.050 H Neutrophils # 9.3 H 8.1 H Lymphocytes # 1.6 2.1 Monocytes # 0.6 0.7 Eosinophils # 0.3 0.2 Basophils # 0.1 0.1 Nucleated Red Blood Cells # 0.0 0.0 Sodium Level 143 139 Potassium Level 4.2 3.7 Chloride Level 105 107 Carbon Dioxide Level 27 26 Anion Gap 11 6 Blood Urea Nitrogen 8 7 Creatinine 0.68 0.55 Est Glomerular Filtrat > 60 > 60 Rate mL/min Glucose Level 128 126 Calcium Level 9.5 8.4 Total Bilirubin 1.1 1.2 Direct Bilirubin 0.00 0.00 Indirect Bilirubin 1.1 1.2 H Aspartate Amino 22 20 Transf (AST/SGOT) Alanine 22 24 Aminotransferase (ALT/SGPT) Alkaline Phosphatase 69 46 Total Protein 8.3 H 6.7 # Albumin 4.6 3.8 Globulin 3.70 H 2.90 Albumin/Globulin Ratio 1.24 1.31 Lipase 103 Phosphorus Level 3.7 Magnesium Level 2.0 Urine Color YELLOW Urine Clarity SLIGHTLY CLOUDY A Urine pH 5.0 Urine Specific [place] 1.024 Urine Ketones NEGATIVE Urine Nitrite NEGATIVE Urine Bilirubin NEGATIVE Urine Urobilinogen NEGATIVE Urine Leukocyte Esterase NEGATIVE Urine Microscopic RBC 1 Urine Microscopic WBC 8 H Urine Squamous Epithelial Cells FEW Urine Bacteria FEW A Urine Mucus MANY A Urine Hemoglobin NEGATIVE Urine Glucose NEGATIVE Urine Total Protein NEGATIVE Medications Medication Current Medications Ondansetron HCl (Zofran Inj) 4 mg BRIDGE ORDER PRN IV NAUSEA/VOMITING; Start 06/24/19 at 23:00; Stop 06/25/19 at 22:59 Acetaminophen (Tylenol Tab) 650 mg ER BRIDGE PRN PO .MILD PAIN 1-3 OR TEMP; Start 06/24/19 at 23:00; Stop 06/25/19 at 22:59 Dextrose/Sodium Chloride 1,000 ml @ 100 mls/hr Q10H IV Last administered on 06/25/19at 01:43; Admin Dose 100 MLS/HR; Start 06/25/19 at 01:13 IV Flush (NS 3 ml) 3 ml PER PROTOCOL IV ; Start 06/25/19 at 01:30 Ondansetron HCl (Zofran Inj) 4 mg Q6H PRN IV NAUSEA/VOMITING Last administered on 06/25/19at 03:37; Admin Dose 4 MG; Start 06/25/19 at 01:30 Pantoprazole (Protonix Iv) 40 mg DAILY@06 IV Last administered on 06/25/19at 05:42; Admin Dose 40 MG; Start 06/25/19 at 06:00 Albuterol/ Ipratropium (Duoneb) 3 ml Q2H RESP THERAPY PRN HHN SHORTNESS OF BREATH; Start 06/25/19 at 01:30 Lorazepam (Ativan) 1 mg Q8H PRN IV anxiety; Start 06/25/19 at 01:30 Hydromorphone HCl (Dilaudid) 1 mg Q4H PRN IV SEVERE PAIN LEVEL 7-10 Last administered on 06/25/19at 09:36; Admin Dose 1 MG; Start 06/25/19 at 01:30 LIV MARTINEZ NP Jun 25, 2019 10:54
--- NOTE | 2019-06-25 13:28 | PN ---
Date/Time of Note Date/Time of Note DATE: 06/25/19 TIME: 13:27 Assessment/Plan Lines/Catheters IV Catheter Type (from Nrsg): Peripheral IV Nunez in Place (from Nrsg): No Subjective 24 Hr Interval Summary Patient returned to emergency room with complaining abdominal pain vomiting. Medical picture resembles the one that she had few days ago. Upper GI series in progress today. May need laparoscopic exploration to rule out afferent loop syndrome possible conversion to Hubert-en-Y configuration. Exam/Review of Systems Vital Signs Vitals Vital Signs Date Temp Pulse Resp B/P (MAP) Pulse Ox O2 O2 Flow FiO2 Time Delivery Rate 06/25/19 98.2 60 18 104/65 98 Room Air 08:00 (78) Intake and Output 06/24/19 06/24/19 06/25/19 1515:00 23:00 07:00 IntakeIntake Total 300 ml OutputOutput Total 100 ml BalanceBalance 200 ml Results Result Diagram: 06/25/19 0448 06/25/19 0448 ELLYN BURGESS MD Jun 25, 2019 13:28
[2019-06-25 14:00] VITALS: BP 116/61; PULSE 65; RESP 17
[2019-06-25] MEDS ORDERED: IOHEXOL 300MG/ML 150 ML BTL ONE (15:27)
[2019-06-25 20:00] VITALS: BP 119/59; PULSE 67; RESP 18
[2019-06-26] MEDS: HYDROmorphONE 1 MG/ML SYG IV PRN ×6 (01:49→22:07)
[2019-06-26 02:00] VITALS: BP 108/71; PULSE 78; RESP 17
[2019-06-26] MEDS: DEXTROSE 5%-0.45% NACL 1,000 ML IV SCH ×4 (04:18→23:37)
[2019-06-26] MEDS: PANTOPRAZOLE 40 MG INJ IV SCH (05:45)
[2019-06-26 07:59] VITALS: BP 109/70; PULSE 71; RESP 18
--- NOTE | 2019-06-26 13:46 | PN ---
Date/Time of Note Date/Time of Note DATE: 06/26/19 TIME: 13:45 Assessment/Plan VTE Prophylaxis Risk score (from Nsg)>0 risk: 1 SCD applied (from Ns): No SCD contraindicated: other Pharmacological prophylaxis: NA/contraindicated Pharm contraindication: low risk/ambulating Lines/Catheters IV Catheter Type (from Nrsg): Peripheral IV Urinary Cath still in place: No Assessment/Plan Hospital Course SUBJECTIVE: Denies any nausea at this time. OBJECTIVE: Physical Exam General: Thin 33 year-old female lying in bed in no apparent distress. HEENT: Normocephalic, atraumatic. Eyes: Anicteric sclerae, conjunctivae clear. ENT: Nasal septum midline, oral mucosa is dry. Neck supple, no JVD noticed. Respiratory: Bilaterally diminished breath sounds. No use of accessory muscles of respiration. No adventitious breath sounds. Cardiovascular: S1, S2 heard. Regular rate and rhythm. Abdomen: Soft and nondistended.. Laparoscopic surgical scars. Genitourinary: Deferred. Extremities: No cyanosis, no clubbing, no edema. Peripheral pulses palpable. Neurologic: Cranial nerves II through XII grossly intact. The patient is awake, alert, and oriented. Skin: Normal skin turgor. No skin rashes. Labs & Vitals per chart ASSESSMENT & PLAN 34-year-old female with SMA syndrome, status post laparoscopic duodenoj ejunostomy on 05/26/2019, protein calorie malnutrition, and depression who returned back to the emergency room on 06/24/2019 with abdominal pain, who was admitted to inpatient setting for further treatment and evaluation. 1. Abdominal pain in a patient with SMA syndrome, status post duodenojejunostomy on May 26, 2019. Being followed by the patient's surgeon. Currently on n.p.o. Small bowel follow-through showing no evidence of any bowel obstruction. 2. Moderate protein calorie malnutrition. Encourage dietary supplements once able to tolerate oral intake. 3. Depression. Resume antidepressants once able to tolerate oral intake. 4. Fluids, electrolytes, and nutrition. N.p.o. IV fluids. 5. DVT prophylaxis. Ambulation. 6. Plan. Continue pain control. Patient refusing any further surgical interventions. Start trial of clears. The patient was seen in collaboration with Dr. Belle. Result Diagram: 06/26/19 0702 06/26/19 0702 Results 24hrs Laboratory Tests Test 06/26/19 07:02 White Blood Count 6.1 # Red Blood Count 3.31 L Hemoglobin 9.2 L Hematocrit 29.9 L Mean Corpuscular Volume 90.3 Mean Corpuscular Hemoglobin 27.8 L Mean Corpuscular Hemoglobin Concent 30.8 L Red Cell Distribution Width 12.7 Platelet Count 214 # Mean Platelet Volume 10.2 Immature Granulocytes % 0.200 Neutrophils % 44.1 Lymphocytes % 36.8 Monocytes % 8.1 Eosinophils % 10.1 H Basophils % 0.7 Nucleated Red Blood Cells % 0.0 Immature Granulocytes # 0.010 Neutrophils # 2.7 Lymphocytes # 2.3 Monocytes # 0.5 Eosinophils # 0.6 H Basophils # 0.0 Nucleated Red Blood Cells # 0.0 Sodium Level 141 Potassium Level 3.9 Chloride Level 111 H Carbon Dioxide Level 25 Anion Gap 5 Blood Urea Nitrogen 5 L Creatinine 0.55 Est Glomerular Filtrat Rate mL/min > 60 Glucose Level 93 Calcium Level 7.9 L Phosphorus Level 3.7 Magnesium Level 2.1 Exam/Review of Systems Exam Vitals Vital Signs Date Temp Pulse Resp B/P (MAP) Pulse Ox O2 O2 Flow FiO2 Time Delivery Rate 06/26/19 98.2 71 18 109/70 99 07:59 (83) 06/25/19 Room Air 14:00 Intake and Output 06/25/19 06/25/19 06/26/19 1515:00 23:00 07:00 IntakeIntake Total 1050 ml 725 ml BalanceBalance 1050 ml 725 ml Results Results 24hrs Laboratory Tests Test 06/26/19 07:02 White Blood Count 6.1 # Red Blood Count 3.31 L Hemoglobin 9.2 L Hematocrit 29.9 L Mean Corpuscular Volume 90.3 Mean Corpuscular Hemoglobin 27.8 L Mean Corpuscular Hemoglobin Concent 30.8 L Red Cell Distribution Width 12.7 Platelet Count 214 # Mean Platelet Volume 10.2 Immature Granulocytes % 0.200 Neutrophils % 44.1 Lymphocytes % 36.8 Monocytes % 8.1 Eosinophils % 10.1 H Basophils % 0.7 Nucleated Red Blood Cells % 0.0 Immature Granulocytes # 0.010 Neutrophils # 2.7 Lymphocytes # 2.3 Monocytes # 0.5 Eosinophils # 0.6 H Basophils # 0.0 Nucleated Red Blood Cells # 0.0 Sodium Level 141 Potassium Level 3.9 Chloride Level 111 H Carbon Dioxide Level 25 Anion Gap 5 Blood Urea Nitrogen 5 L Creatinine 0.55 Est Glomerular Filtrat Rate mL/min > 60 Glucose Level 93 Calcium Level 7.9 L Phosphorus Level 3.7 Magnesium Level 2.1 Medications Medication Current Medications Dextrose/Sodium Chloride 1,000 ml @ 100 mls/hr Q10H IV Last administered on 06/26/19at 04:18; Admin Dose 100 MLS/HR; Start 06/25/19 at 01:13 IV Flush (NS 3 ml) 3 ml PER PROTOCOL IV ; Start 06/25/19 at 01:30 Ondansetron HCl (Zofran Inj) 4 mg Q6H PRN IV NAUSEA/VOMITING Last administered on 06/25/19at 03:37; Admin Dose 4 MG; Start 06/25/19 at 01:30 Pantoprazole (Protonix Iv) 40 mg DAILY@06 IV Last administered on 06/25/19at 05:42; Admin Dose 40 MG; Start 06/25/19 at 06:00 Albuterol/ Ipratropium (Duoneb) 3 ml Q2H RESP THERAPY PRN HHN SHORTNESS OF BREATH; Start 06/25/19 at 01:30 Lorazepam (Ativan) 1 mg Q8H PRN IV anxiety; Start 06/25/19 at 01:30 Hydromorphone HCl (Dilaudid) 1 mg Q4H PRN IV SEVERE PAIN LEVEL 7-10 Last administered on 06/26/19at 09:52; Admin Dose 1 MG; Start 06/25/19 at 01:30 LANIE HERNANDEZ NP Jun 26, 2019 13:45
[2019-06-26 14:12] VITALS: BP 126/72; PULSE 63; RESP 19
--- NOTE | 2019-06-26 16:45 | PN ---
Date/Time of Note Date/Time of Note DATE: 06/26/19 TIME: 16:43 Assessment/Plan Lines/Catheters IV Catheter Type (from Nrsg): Peripheral IV Nunez in Place (from Nrsg): No Subjective 24 Hr Interval Summary upper GI was reviewed. Upper GI was found to be normal. There is a good drainage of barium through the stomach duodenum into the jejunum. Patient feels better. 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 I offered the patient surgery conversion from the loop duodenojejunostomy to Hubert-en-Y configuration. Patient refuses surgery. Patient can be discharged on a regular diet, I gave her instruction if pain persists consider surgery. Exam/Review of Systems Vital Signs Vitals Vital Signs Date Temp Pulse Resp B/P (MAP) Pulse Ox O2 O2 Flow FiO2 Time Delivery Rate 06/26/19 98.1 63 19 126/72 100 14:12 (90) 06/25/19 Room Air 14:00 Intake and Output 06/25/19 06/25/19 06/26/19 1515:00 23:00 07:00 IntakeIntake Total 1050 ml 725 ml BalanceBalance 1050 ml 725 ml Results Result Diagram: 06/26/19 0702 06/26/19 0702 ELLYN BURGESS MD Jun 26, 2019 16:45
[2019-06-26 20:00] VITALS: BP 113/63; PULSE 63; RESP 18
[2019-06-27 02:00] VITALS: BP 108/59; PULSE 55; RESP 17
[2019-06-27] MEDS: HYDROmorphONE 1 MG/ML SYG IV PRN ×3 (02:11→10:17)
[2019-06-27] MEDS: PANTOPRAZOLE (EC) 40 MG TAB PO SCH (05:36)
[2019-06-27 07:56] VITALS: BP 99/69; PULSE 60; RESP 17
[2019-06-27] MEDS: DEXTROSE 5%-0.45% NACL 1,000 ML IV SCH (10:19)
--- NOTE | 2019-06-27 11:03 | PN ---
Date/Time of Note Date/Time of Note DATE: 06/27/19 TIME: 11:03 Assessment/Plan VTE Prophylaxis Risk score (from Nsg)>0 risk: 2 SCD applied (from Nsg): Yes Pharmacological prophylaxis: NA/contraindicated Pharm contraindication: low risk/ambulating Lines/Catheters IV Catheter Type (from Nrsg): Peripheral IV Urinary Cath still in place: No Assessment/Plan Hospital Course SUBJECTIVE: Denies any nausea at this time. Tolerating clears. OBJECTIVE: Physical Exam General: Thin 33 year-old female lying in bed in no apparent distress. HEENT: Normocephalic, atraumatic. Eyes: Anicteric sclerae, conjunctivae clear. ENT: Nasal septum midline, oral mucosa is dry. Neck supple, no JVD noticed. Respiratory: Bilaterally diminished breath sounds. No use of accessory muscles of respiration. No adventitious breath sounds. Cardiovascular: S1, S2 heard. Regular rate and rhythm. Abdomen: Soft and nondistended.. Laparoscopic surgical scars. Genitourinary: Deferred. Extremities: No cyanosis, no clubbing, no edema. Peripheral pulses palpable. Neurologic: Cranial nerves II through XII grossly intact. The patient is awake, alert, and oriented. Skin: Normal skin turgor. No skin rashes. 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 1. Abdominal pain in a patient with SMA syndrome, status post duodenojejunostomy on May 26, 2019. Being followed by the patient's surgeon. Small bowel follow-through showing no evidence of any bowel obstruction. Currently on clears. Advance diet. 2. Moderate protein calorie malnutrition. Encourage dietary supplements. Dietary consult. 3. Depression. Resume antidepressants. 4. Fluids, electrolytes, and nutrition. Clear liquids. Advance diet. 5. DVT prophylaxis. Ambulation. 6. Plan. Continue pain control. Patient refusing any further surgical interventions. Advance diet. Minimize opioids. Certified practice clinician ID [id number] used to explain the plan of care. The patient was seen in collaboration with Dr. Belle. Result Diagram: 06/27/19 0653 06/27/19 0653 Results 24hrs Laboratory Tests Test 06/27/19 06:53 White Blood Count 5.7 Red Blood Count 3.13 L Hemoglobin 8.8 L Hematocrit 27.7 L Mean Corpuscular Volume 88.5 Mean Corpuscular Hemoglobin 28.1 L Mean Corpuscular Hemoglobin Concent 31.8 L Red Cell Distribution Width 12.6 Platelet Count 190 Mean Platelet Volume 10.3 Immature Granulocytes % 0.200 Neutrophils % 44.6 Lymphocytes % 35.3 Monocytes % 8.6 Eosinophils % 10.4 H Basophils % 0.9 Nucleated Red Blood Cells % 0.0 Immature Granulocytes # 0.010 Neutrophils # 2.5 Lymphocytes # 2.0 Monocytes # 0.5 Eosinophils # 0.6 H Basophils # 0.1 Nucleated Red Blood Cells # 0.0 Sodium Level 142 Potassium Level 3.6 Chloride Level 110 Carbon Dioxide Level 26 Anion Gap 6 Blood Urea Nitrogen 3 L Creatinine 0.53 Est Glomerular Filtrat Rate mL/min > 60 Glucose Level 113 Calcium Level 8.1 L Phosphorus Level 4.0 Magnesium Level 2.1 Exam/Review of Systems Exam Vitals Vital Signs Date Temp Pulse Resp B/P (MAP) Pulse Ox O2 O2 Flow FiO2 Time Delivery Rate 06/27/19 98.1 60 17 99/69 (79) 97 07:56 06/25/19 Room Air 14:00 Intake and Output 06/26/19 06/26/19 06/27/19 1515:00 23:00 07:00 IntakeIntake Total 1160 ml 940 ml BalanceBalance 1160 ml 940 ml Results Results 24hrs Laboratory Tests Test 06/27/19 06:53 White Blood Count 5.7 Red Blood Count 3.13 L Hemoglobin 8.8 L Hematocrit 27.7 L Mean Corpuscular Volume 88.5 Mean Corpuscular Hemoglobin 28.1 L Mean Corpuscular Hemoglobin Concent 31.8 L Red Cell Distribution Width 12.6 Platelet Count 190 Mean Platelet Volume 10.3 Immature Granulocytes % 0.200 Neutrophils % 44.6 Lymphocytes % 35.3 Monocytes % 8.6 Eosinophils % 10.4 H Basophils % 0.9 Nucleated Red Blood Cells % 0.0 Immature Granulocytes # 0.010 Neutrophils # 2.5 Lymphocytes # 2.0 Monocytes # 0.5 Eosinophils # 0.6 H Basophils # 0.1 Nucleated Red Blood Cells # 0.0 Sodium Level 142 Potassium Level 3.6 Chloride Level 110 Carbon Dioxide Level 26 Anion Gap 6 Blood Urea Nitrogen 3 L Creatinine 0.53 Est Glomerular Filtrat Rate mL/min > 60 Glucose Level 113 Calcium Level 8.1 L Phosphorus Level 4.0 Magnesium Level 2.1 Medications Medication Current Medications Dextrose/Sodium Chloride 1,000 ml @ 100 mls/hr Q10H IV Last administered on 06/27/19at 10:19; Admin Dose 100 MLS/HR; Start 06/25/19 at 01:13 IV Flush (NS 3 ml) 3 ml PER PROTOCOL IV ; Start 06/25/19 at 01:30 Ondansetron HCl (Zofran Inj) 4 mg Q6H PRN IV NAUSEA/VOMITING Last administered on 06/25/19at 03:37; Admin Dose 4 MG; Start 06/25/19 at 01:30 Albuterol/ Ipratropium (Duoneb) 3 ml Q2H RESP THERAPY PRN HHN SHORTNESS OF BREATH; Start 06/25/19 at 01:30 Lorazepam (Ativan) 1 mg Q8H PRN IV anxiety; Start 06/25/19 at 01:30 Hydromorphone HCl (Dilaudid) 1 mg Q4H PRN IV SEVERE PAIN LEVEL 7-10 Last administered on 06/27/19at 10:17; Admin Dose 1 MG; Start 06/25/19 at 01:30 Pantoprazole (Protonix Tab) 40 mg DAILY@06 PO Last administered on 06/27/19at 05:36; Admin Dose 40 MG; Start 06/27/19 at 06:00 LANIE HERNANDEZ NP Jun 27, 2019 11:03
[2019-06-27] MEDS ORDERED: BISACODYL (EC) 5 MG TAB PO PRN (11:30)
[2019-06-27] MEDS: POLYETHYLENE GLYCOL 17 GM PACKET PO SCH ×2 (12:08→21:45)
[2019-06-27 14:12] VITALS: BP 105/62; PULSE 71; RESP 18
[2019-06-27] MEDS: traMADol 50 MG TAB PO PRN (17:04)
[2019-06-27 20:00] VITALS: BP 131/62; PULSE 68; RESP 19
[2019-06-27] MEDS: SENNA/DOCUSATE NA (8.6MG/50MG) TAB PO SCH (21:45)
[2019-06-28 02:00] VITALS: BP 106/59; PULSE 53; RESP 19
[2019-06-28] MEDS: PANTOPRAZOLE (EC) 40 MG TAB PO SCH (05:53)
[2019-06-28 07:45] VITALS: BP 109/78; PULSE 54; RESP 16
[2019-06-28] MEDS: SENNA/DOCUSATE NA (8.6MG/50MG) TAB PO SCH ×2 (08:44→21:07)
[2019-06-28] MEDS: POLYETHYLENE GLYCOL 17 GM PACKET PO SCH ×2 (08:44→21:06)
[2019-06-28] MEDS: DULOXETINE 20 MG CAP DR PO SCH (08:44)
[2019-06-28] MEDS: traMADol 50 MG TAB PO PRN ×2 (10:33→16:55)
--- NOTE | 2019-06-28 11:11 | PN ---
Date/Time of Note Date/Time of Note DATE: 06/28/19 TIME: 11:06 Assessment/Plan VTE Prophylaxis Risk score (from Nsg)>0 risk: 2 SCD applied (from Nsg): Yes Pharmacological prophylaxis: NA/contraindicated Pharm contraindication: low risk/ambulating Lines/Catheters IV Catheter Type (from Nrsg): Peripheral IV Urinary Cath still in place: No Assessment/Plan Hospital Course SUBJECTIVE: Denies any nausea at this time. Tolerating soft diet. Complains of lower abdominal pain. The patient is also on her menstrual period. OBJECTIVE: Physical Exam General: Thin 33 year-old female lying in bed in no apparent distress. HEENT: Normocephalic, atraumatic. Eyes: Anicteric sclerae, conjunctivae clear. ENT: Nasal septum midline, oral mucosa is dry. Neck supple, no JVD noticed. Respiratory: Bilaterally diminished breath sounds. No use of accessory muscles of respiration. No adventitious breath sounds. Cardiovascular: S1, S2 heard. Regular rate and rhythm. Abdomen: Soft and nondistended.. Laparoscopic surgical scars. Genitourinary: Deferred. Extremities: No cyanosis, no clubbing, no edema. Peripheral pulses palpable. Neurologic: Cranial nerves II through XII grossly intact. The patient is awake, alert, and oriented. Skin: Normal skin turgor. No skin rashes. 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 1. Abdominal pain in a patient with SMA syndrome, status post duodenojejunostomy on May 26, 2019. Being followed by the patient's surgeon. Small bowel follow-through showing no evidence of any bowel obstruction. Currently on a soft diet. 2. Moderate protein calorie malnutrition. Encourage dietary supplements. Dietary consult. Continue protein supplements. 3. Depression. Continue antidepressants. 4. Fluids, electrolytes, and nutrition. Soft diet. 5. DVT prophylaxis. Ambulation. 6. Plan. Continue pain control. Patient refusing any further surgical interventions. Minimize opioids. Continue bowel regimen. Plan is to discharge the patient home once the patient has a bowel movement. The patient was seen in collaboration with Dr. Belle. Result Diagram: 06/28/19 0455 06/28/19 0456 Results 24hrs Laboratory Tests Test 06/28/19 04:55 06/28/19 04:56 White Blood Count 8.3 # Red Blood Count 3.39 L Hemoglobin 9.6 L Hematocrit 29.3 L Mean Corpuscular Volume 86.4 Mean Corpuscular Hemoglobin 28.3 L Mean Corpuscular Hemoglobin Concent 32.8 Red Cell Distribution Width 12.4 Platelet Count 241 # Mean Platelet Volume 10.3 Immature Granulocytes % 0.200 Neutrophils % 52.7 Lymphocytes % 29.9 Monocytes % 9.0 Eosinophils % 7.5 H Basophils % 0.7 Nucleated Red Blood Cells % 0.0 Immature Granulocytes # 0.020 Neutrophils # 4.4 Lymphocytes # 2.5 Monocytes # 0.8 Eosinophils # 0.6 H Basophils # 0.1 Nucleated Red Blood Cells # 0.0 Phosphorus Level 4.1 Magnesium Level 2.1 Sodium Level 141 Potassium Level 3.7 Chloride Level 106 Carbon Dioxide Level 29 Anion Gap 6 Blood Urea Nitrogen 6 L Creatinine 0.61 Est Glomerular Filtrat Rate mL/min > 60 Glucose Level 104 Calcium Level 8.9 Exam/Review of Systems Exam Vitals Vital Signs Date Temp Pulse Resp B/P (MAP) Pulse Ox O2 O2 Flow FiO2 Time Delivery Rate 06/28/19 98.6 54 16 109/78 98 07:45 (88) 06/25/19 Room Air 14:00 Intake and Output 06/27/19 06/27/19 06/28/19 1515:00 23:00 07:00 IntakeIntake Total 780 ml 800 ml BalanceBalance 780 ml 800 ml Results Results 24hrs Laboratory Tests Test 06/28/19 04:55 06/28/19 04:56 White Blood Count 8.3 # Red Blood Count 3.39 L Hemoglobin 9.6 L Hematocrit 29.3 L Mean Corpuscular Volume 86.4 Mean Corpuscular Hemoglobin 28.3 L Mean Corpuscular Hemoglobin Concent 32.8 Red Cell Distribution Width 12.4 Platelet Count 241 # Mean Platelet Volume 10.3 Immature Granulocytes % 0.200 Neutrophils % 52.7 Lymphocytes % 29.9 Monocytes % 9.0 Eosinophils % 7.5 H Basophils % 0.7 Nucleated Red Blood Cells % 0.0 Immature Granulocytes # 0.020 Neutrophils # 4.4 Lymphocytes # 2.5 Monocytes # 0.8 Eosinophils # 0.6 H Basophils # 0.1 Nucleated Red Blood Cells # 0.0 Phosphorus Level 4.1 Magnesium Level 2.1 Sodium Level 141 Potassium Level 3.7 Chloride Level 106 Carbon Dioxide Level 29 Anion Gap 6 Blood Urea Nitrogen 6 L Creatinine 0.61 Est Glomerular Filtrat Rate mL/min > 60 Glucose Level 104 Calcium Level 8.9 Medications Medication Current Medications IV Flush (NS 3 ml) 3 ml PER PROTOCOL IV ; Start 06/25/19 at 01:30 Ondansetron HCl (Zofran Inj) 4 mg Q6H PRN IV NAUSEA/VOMITING Last administered on 06/25/19 03:37; Admin Dose 4 MG; Start 06/25/19 at 01:30 Albuterol/ Ipratropium (Duoneb) 3 ml Q2H RESP THERAPY PRN HHN SHORTNESS OF NEAL ATH; Start 06/25/19 at 01:30 Lorazepam (Ativan) 1 mg Q8H PRN IV anxiety; Start 06/25/19 at 01:30 Pantoprazole (Protonix Tab) 40 mg DAILY@06 PO Last administered on 06/28/19at 05:53; Admin Dose 40 MG; Start 06/27/19 at 06:00 Ketorolac Tromethamine (Toradol) 30 mg Q6H PRN IV PAIN LEVEL 1-3; Start 06/27/19 at 11:30; Stop 06/30/19 at 11:29 Polyethylene Glycol (Miralax) 17 gm BID PO Last administered on 06/28/19 08:44; Admin Dose 17 GM; Start 06/27/19 at 11:30 Senna/Docusate Sodium (Senokot-S) 1 tab BID PO Last administered on 06/28/19 08:44; Admin Dose 1 TAB; Start 06/27/19 at 21:00 Bisacodyl (Dulcolax) 10 mg DAILY PRN PO CONSTIPATION Last administered on 06/28/19 10:33; Admin Dose 10 MG; Start 06/27/19 at 11:30 Duloxetine HCl (Cymbalta) 20 mg DAILY PO Last administered on 06/28/19 08:44; Admin Dose 20 MG; Start 06/28/19 at 09:00 Tramadol HCl (Ultram) 50 mg Q6H PRN PO MODERATE PAIN LEVEL 4-6 Last administered on 06/28/19at 10:33; Admin Dose 50 MG; Start 06/27/19 at 11:30 LANIE HERNANDEZ NP Jun 28, 2019 11:11
[2019-06-28] MEDS ORDERED: NA PHOSPHATE/BIPHOS 133 ML ENEMA PR PRN (11:30)
[2019-06-28 14:02] VITALS: BP 118/86; PULSE 57; RESP 18
[2019-06-28 19:54] VITALS: BP 116/67; PULSE 67; RESP 20
[2019-06-28] MEDS: KETOROLAC 30 MG INJ IV PRN (21:08)
[2019-06-29] MEDS: traMADol 50 MG TAB PO PRN (00:24)
[2019-06-29] MEDS: PANTOPRAZOLE (EC) 40 MG TAB PO SCH (05:55)
[2019-06-29 08:08] VITALS: BP 114/66; PULSE 70; RESP 18
[2019-06-29] MEDS: DULOXETINE 20 MG CAP DR PO SCH ×2 (08:34→10:53)
[2019-06-29] MEDS: POLYETHYLENE GLYCOL 17 GM PACKET PO SCH ×2 (08:34→11:35)
[2019-06-29] MEDS: SENNA/DOCUSATE NA (8.6MG/50MG) TAB PO SCH ×2 (08:35→11:36)
[2019-06-29] MEDS: KETOROLAC 30 MG INJ IV PRN ×2 (10:43→18:25)
--- NOTE | 2019-06-29 11:45 | PDOCDIS ---
Discharge Instructions CONDITION [id number] Patient Condition: [id number] Stable HOME CARE INSTRUCTIONS: [id number] Diet Instructions: [id number] Regular FOLLOW UP/APPOINTMENTS Follow-up Plan Valeriy Chery MD Specialty: Internal Medicine Office Address: [address] [place], [place] [id number] Office OTHER ORDERS: Other Orders: 1. Take a regular consistency diet in small frequent portions. 2. Take pain medications as needed. 3. Follow-up with your primary care physician in 1 week. If you do not have a primary care physician, please call Dr. Valeriy Chery's office. 4. Resume activities as tolerated. 5. Please go to the nearest emergency room if you have significant abdominal pain, persistent nausea/vomiting, persistent fevers, or any other unusual signs/symptoms. LANIE HERNANDEZ NP Jun 29, 2019 11:45
[2019-06-29 14:46] VITALS: BP 109/62; PULSE 71; RESP 18
--- NOTE | 2019-06-29 15:56 | DS ---
Date/Time of Note Date/Time of Note DATE: 06/29/19 TIME: 15:55 Discharge Summary Admission/Discharge Info Admit Date/Time Jun 24, 2019 at 22:44 Discharge Date/Time Discharge Diagnosis 1. Abdominal pain in a patient with SMA syndrome, status post duodenojejunosto my on May 26, 2019. 2. Moderate protein calorie malnutrition. 3. Depression. Patient Condition: Stable Consults 1. Branden Jansen MD, General Surgery. Procedures [place] [id number] Radiology Main Line: [phone] DIAGNOSTIC IMAGING REPORT Patient: MARIAH MONK : 1985 Age: 34 Sex: F MR #: [id number] DOS: 06/25/19 0117 Ordering MD: CATHI CHRISTIANSON MD Location: [facility] Room/Bed: [facility] PROCEDURE: XR Abdomen Small Bowel Series. CLINICAL INDICATION: Abdominal pain TECHNIQUE: Sales Team Recruiter supine frontal view of the abdomen. Multiple frontal views of the abdomen after administration of oral contrast COMPARISON: CT 06/21/2019; DR ABDOMEN 06/02/2019 FINDINGS: Sales Team Recruiter view of the abdomen reveals a nonobstructive bowel gas pattern. Surgical clips seen overlying the mid abdomen. The underlying osseous structures are normal. There is immediate opacification of the stomach and proximal small bowel. Contrast passes quickly through the small bowel into the colon. The contrast reaches the colon within 1 hour. There is normal mucosal pattern of the visualized small bowel. IMPRESSION: No evidence of bowel obstruction. Oral contrast passes through the small bowel and reaches the colon within 1 hour. 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 Hospital Course The patient was started on adequate pain control. She was kept n.p.o. and was started on IV fluids. The patient's surgeon was informed about the patient's admission. As per the patient's surgeon, the patient needed a laparoscopic exploration to rule out afferent loop syndrome and possible conversion to Hubert-en-Y configuration. However, the patient refused any further surgical interventions. The patient underwent a small bowel series that was showing no evidence of any bowel obstruction with oral contrast passing through the small bowel and reaching the colon within 1 hour. Therefore, the patient was started on a clear liquid diet and the patient's diet was advanced as tolerated to a regular consistency diet. The patient required analgesics for abdominal pain although she was able to tolerate a diet without any nausea or vomiting. The patient also started her menstrual cycles during this hospitalization that was increasing her abdominal discomfort. Nevertheless, the patient's diet was advanced to a regular consistency diet. Once the patient was started on a diet, the patient's opioids were discontinued except for low-dose tramadol. The patient was started on a bowel regimen and the patient had some bowel movements although the patient complained feeling of incomplete bowel emptying. The patient will be discharged home on oral tramadol, since her [place] was making her having nausea/vomiting. Once again, the patient was reinforced on the importance of Dr. Jansen's recommendations. However, the patient continued to decline any further surgical interventions. The patient's chronic problems include moderate protein calorie malnutrition. The patient was evaluated by the dietitian and was instructed on high calorie diet and small frequent intervals. The patient also has underlying depression. The patient was resumed on Cymbalta once the patient was able to tolerate oral intake. Discharge Instructions 1. Take a regular consistency diet in small frequent portions. 2. Take pain medications as needed. 3. Follow-up with your primary care physician in 1 week. If you do not have a primary care physician, please call Dr. Valeriy Chery's office. 4. Resume activities as tolerated. 5. Please go to the nearest emergency room if you have significant abdominal pain, persistent nausea/vomiting, persistent fevers, or any other unusual signs/symptoms. The patient verbalized understanding of her discharge instructions. At this time I would like to thank Dr. Jansen for seeing the patient and providing clinical recommendations. The patient was seen in collaboration with Dr. Belle. Home Meds Active Scripts Tramadol HCl (Tramadol HCl) 50 Mg Tablet, 50 MG PO Q6H PRN for MODERATE PAIN LEVEL 4-6, #10 TAB Prov:LANIE HERNANDEZ NP 06/29/19 Lorazepam* (Lorazepam*) 0.5 Mg Tablet, 0.5 MG PO Q8 PRN for ANXIETY, #5 TAB Prov:VARGHESE ARIZA. 06/22/19 Famotidine* (Famotidine*) 20 Mg Tablet, 20 MG PO BID for 7 Days, #14 TAB Prov:VARGHESE ARIZA. 06/22/19 Docusate Sodium* (Colace*) 100 Mg Capsule, 100 MG PO BID, #28 CAP Prov:VARGHESE ARIZA. 06/22/19 Duloxetine Hcl* (Cymbalta*) 20 Mg Capsule.dr, 20 MG PO DAILY, #30 CAP Prov:LANIE HERNANDEZ EMPLOYMENT SERVICES DIRECTOR 06/03/19 Reported Medications Gabapentin* (Gabapentin*) 300 Mg Capsule, 300 MG PO BID, #60 CAP 05/22/19 Discontinued Scripts Hydrocodone/Acetaminophen ([place] 5-325 Tablet) 1 Each Tablet, 1 EACH PO Q6H PRN for PAIN, #10 TAB Prov:VARGHESE ARIZA. 06/22/19 Follow-up Plan Valeriy Chery MD Specialty: Internal Medicine Office Address: [address] [place] [address] Office Primary Care Provider Care Physician No Primary Time spent on discharge: > 30 minutes Pending Labs Laboratory Tests Test 06/29/19 06:07 White Blood Count 8.8 10^3/ul (4.8-10.8) Red Blood Count 3.80 10^6/ul (4.20-5.40) Hemoglobin 10.9 g/dl (12.0-16.0) Hematocrit 33.4 % (37.0-47.0) Mean Corpuscular Volume 87.9 fl (82.0-101.0) Mean Corpuscular Hemoglobin 28.7 pg (29.0-33.0) Mean Corpuscular Hemoglobin Concent 32.6 g/dl (32.0-37.0) Red Cell Distribution Width 12.5 % (11.5-14.5) Platelet Count 265 10^3/UL (140-415) Mean Platelet Volume 10.4 fl (7.4-10.4) Immature Granulocytes % 0.200 % (0.001-0.429) Neutrophils % 72.6 % (39.0-77.0) Lymphocytes % 13.6 % (15.0-51.0) Monocytes % 5.8 % (0.0-11.0) Eosinophils % 7.2 % (0.0-7.0) Basophils % 0.6 % (0.0-2.0) Nucleated Red Blood Cells % 0.0 /100WBC (0.0-0.0) Immature Granulocytes # 0.020 10^3/ul (0.0-0.031) Neutrophils # 6.4 10^3/ul (1.6-7.5) Lymphocytes # 1.2 10^3/ul (0.8-2.9) Monocytes # 0.5 10^3/ul (0.3-0.9) Eosinophils # 0.6 10^3/ul (0.0-0.5) Basophils # 0.1 10^3/ul (0.0-0.1) Nucleated Red Blood Cells # 0.0 10^3/ul (0.0-0.0) Sodium Level 139 mmol/L (135-144) Potassium Level 4.0 mmol/L (3.5-5.1) Chloride Level 103 mmol/L (97-110) Carbon Dioxide Level 28 mmol/L (21-31) Anion Gap 8 (5-13) Blood Urea Nitrogen 10 mg/dl (7-20) Creatinine 0.59 mg/dl (0.44-1.00) Est Glomerular Filtrat Rate mL/min > 60 mL/min (>60) Glucose Level 121 mg/dl (70-220) Calcium Level 9.0 mg/dl (8.4-10.2) Phosphorus Level 4.0 mg/dl (2.5-4.9) Magnesium Level 2.2 mg/dl (1.7-2.5) LANIE HERNANDEZ NP Jun 29, 2019 15:56
== END 2019-06-29 18:50 | disposition home or self-care (01) | DRG 394 ==
LOC: E/R 20:27 → PP2 22:44
PROVIDERS: ADMIT Internal Medicine; ATTEND Internal Medicine
DX: K55.1 Chronic vascular disorders of intestine (principal); E44.0 Moderate protein-calorie malnutrition; Z68.1 Body mass index [BMI] 19.9 or less, adult; F19.10 Other psychoactive substance abuse, uncomplicated; F32.9 Major depressive disorder, single episode, unspecified
CPT/HCPCS: 36415; 74250; 80048; 80053; 81001; 81003; 83690; 83735; 84100; 84703; 85025; 87081; 96374; 96375; C9113; J1170; J1885; J2405; J7030; J7042; Q9967

== ENCOUNTER 2019-07-05 09:05 | Emergency (ER) | payer SELFPAY ==
[~2019-07-05] VITALS: Ht 162.6 cm; Wt 47.9 kg
[~2019-07-05 09:05] MED LIST changes: -HYDR-4011 PO
[2019-07-05 09:12] VITALS: BP 138/89; PULSE 96; RESP 20; Ht 162.6 cm; Wt 47.9 kg
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
== END 2019-07-05 11:25 | disposition home or self-care (01) ==
LOC: FTE 09:05
DX: R10.84 Generalized abdominal pain (principal); F17.210 Nicotine dependence, cigarettes, uncomplicated
CPT/HCPCS: 70450; 71110; 74018; 81025